=== PATIENT | female | born 1945 | race Caucasian/White ===

== ENCOUNTER → 2016-12-28 | Outpatient (CLI) | payer BC ==
[2016-12-28 11:25] LABS: ALT/SGPT 37 U/L (12-78); BLOOD UREA NITROGEN 20 mg/dl (7-18); BUN/CREATININE RATIO 20.6 (10-20); CALCIUM 9.6 mg/dl (8.5-10.1); CARBON DIOXIDE 28 mmol/L (21-32); CHLORIDE 99 mmol/L (98-107); CREATININE 0.98 mg/dl (0.60-1.20); GLUCOSE 319 mg/dl (70-99); POTASSIUM 3.9 mmol/L (3.5-5.1); SODIUM 137 mmol/L (136-145)
[2016-12-28 11:29] LABS: ALB/GLOB RATIO 0.8 (0.9-2); ALKALINE PHOSPHATASE 77 U/L (45-117); AST/SGOT 18 U/L (15-37)
[2016-12-28 11:36] LABS: BETA-HYDROXYBUTYRATE 4.98 mg/dL (0.2-2.81)
[2016-12-28 12:30] LABS: ESTIMATED AVERAGE GLUCOSE 232 mg/dl; HA1C FLAG Normal (Normal)
== END | disposition home or self-care (01) ==
LOC: C.LAB1850 09:08
PROVIDERS: ATTEND Family Medicine
DX: E11.29 Type 2 diabetes mellitus with other diabetic kidney complication (principal); E11.65 Type 2 diabetes mellitus with hyperglycemia; I10 Essential (primary) hypertension

== ENCOUNTER → 2017-03-08 | Outpatient (CLI) | payer BC ==
[2017-03-08 13:12] LABS: ESTIMATED AVERAGE GLUCOSE 174 mg/dl; HA1C FLAG Normal (Normal)
[2017-03-08 13:53] LABS: RATIO 161.7 mcg/mg (0-30.0)
== END | disposition home or self-care (01) ==
LOC: C.LAB1850 10:13
PROVIDERS: ATTEND Physician Assistant
DX: E11.9 Type 2 diabetes mellitus without complications (principal)

== ENCOUNTER → 2017-06-23 | Outpatient (CLI) | payer BC ==
[2017-06-23 10:59] LABS: ESTIMATED AVERAGE GLUCOSE 160 mg/dl; HA1C FLAG Normal (Normal)
[2017-06-23 11:06] LABS: BLOOD UREA NITROGEN 17 mg/dl (7-18); BUN/CREATININE RATIO 21.5 (10-20); CALCIUM 9.7 mg/dl (8.5-10.1); CARBON DIOXIDE 32 mmol/L (21-32); CHLORIDE 102 mmol/L (98-107); GLUCOSE 153 mg/dl (70-99); SODIUM 139 mmol/L (136-145)
[2017-06-23 11:11] LABS: CHOLESTEROL 195 mg/dl (0-200); CHOLESTEROL/HDL RATIO 2.7; HDL CHOLESTEROL 73 mg/dl; LDL CHOLESTEROL CALCULATED 98 mg/dl; TRIGLYCERIDES 122 mg/dl (0-150); VERY LOW DENSITY LIPOPROT CALC 24 mg/dl
== END | disposition home or self-care (01) ==
LOC: C.LAB1850 09:27
PROVIDERS: ATTEND Family Medicine
DX: I10 Essential (primary) hypertension (principal); E78.5 Hyperlipidemia, unspecified; Z11.59 Encounter for screening for other viral diseases; E11.29 Type 2 diabetes mellitus with other diabetic kidney complication; E11.65 Type 2 diabetes mellitus with hyperglycemia

== ENCOUNTER → 2017-12-27 | Outpatient (CLI) | payer BC ==
[2017-12-27 16:11] LABS: BLOOD UREA NITROGEN 21 mg/dl (7-18); CALCIUM 9.7 mg/dl (8.5-10.1); CARBON DIOXIDE 26 mmol/L (21-32); CREATININE 0.92 mg/dl (0.60-1.20); GLUCOSE 97 mg/dl (70-99); POTASSIUM 3.5 mmol/L (3.5-5.1); SODIUM 137 mmol/L (136-145)
[2017-12-28 06:25] LABS: HEMOGLOBIN A1C 7.9 % (4.5-5.6)
== END | disposition home or self-care (01) ==
LOC: C.LAB1850 14:50
PROVIDERS: ATTEND Physician Assistant
DX: E11.9 Type 2 diabetes mellitus without complications (principal)

== ENCOUNTER → 2018-04-28 | Outpatient (CLI) | payer BC ==
[2018-04-28 12:26] LABS: HEMOGLOBIN A1C 7.6 % (4.5-5.6)
== END | disposition home or self-care (01) ==
LOC: C.LAB1850 10:01
PROVIDERS: ATTEND Physician Assistant
DX: E11.9 Type 2 diabetes mellitus without complications (principal)

== ENCOUNTER 2019-09-21 14:12 | Inpatient (IN) ==
[2019-09-21] MEDS ORDERED: ALBUT/IPRATROP 3MG/0.5MG NEB 3 ML VIAL INH STA (14:31)
[2019-09-21] MEDS ORDERED: methylPREDNISolone 125 MG/2 ML VIAL IV STA (14:31)
[2019-09-21] MEDS ORDERED: cefTRIAXone SODIUM 1,000 MG/50 ML BAG IV STA (14:36)
[2019-09-21] MEDS ORDERED: AZITHROMYCIN 500 MG in DEXTROSE 5% 250 ML IV STA (14:36)
--- NOTE | 2019-09-21 14:40 | Emergency Department Note ---
Entered by Ava Perez acting as a scribe for History of Present Illness General Chief complaint: Referred by Doctor Stated complaint: pneumonia multi lobe Time Seen by Provider: 09/21/19 14:25 Source: patient History of Present Illness Onset (ago): day(s) 5 Location: chest Pain Consistency: + constant Maximum Pain Intensity: 5 Current Pain Intensity: 5 Relieved By: + none Exacerbated By: + other (cough) Associated symptoms: + chest pain, + cough (with green sputum), + fever/chills, + shortness of breath and + other The patient is a 73 year old female who presents to the Emergency Room with complaints of shortness of breath that started about 5 days ago after developing a fever. This fever continued for the next 2 days. She called her primary care doctor, who recommended going to the ER or [facility]. She decided to visit [facility] today, and received a chest X-ray. The doctor reported that she had bilateral pneumonia, and that her oxygen was low and in the 80s. She was put on oxygen, given a nebulizer treatment, and referred to the ER. They did not run a flu swab on the patient. Additionally, the patient complains of cough with green sputum. She notes pain in her diaphragm that is exacerbated with coughing, and states that she feels short of breath. She reports that she has a history of asthma, and is a current smoker. The patient does not usually wear oxygen, but uses inhalers as needed. Home Medications Home Medications Medication Instructions Recorded Confirmed Type ascorbic acid (vitamin C) 1,000 mg 1,000 mg PO BID tab 05/22/19 09/21/19 History tablet aspirin 325 mg tablet 325 mg PO QAM tab 05/22/19 09/21/19 History cholecalciferol (vitamin D3) 5,000 5,000 units PO QAM #30 cap 05/22/19 09/21/19 History unit capsule glipizide 10 mg tablet, extended 10 mg PO QAM #90 tab 05/22/19 09/21/19 History release 24 hr lancets 28 gauge #25 ea 05/22/19 05/31/19 History multivitamin 1 tab PO QAM 05/22/19 09/21/19 History metformin 1,000 mg tablet 1,000 mg PO BID 90 Days #180 tab 06/19/19 09/21/19 Rx blood sugar diagnostic #400 ea 07/18/19 Rx fluticasone 250 mcg-salmeterol 50 1 puffs INHALATION Q12H #180 ea 09/11/19 09/21/19 Rx mcg/dose blistr powdr for inhalation albuterol sulfate [Ventolin HFA] 2 inh INHALATION Q6H PRN 09/21/19 09/21/19 History furosemide 40 mg PO QAM 09/21/19 09/21/19 History insulin NPH isoph U-100 human 30 unit SUBCUT QPM 09/21/19 09/21/19 History [Humulin N NPH Insulin KwikPen] vitamin B complex 1 tab PO QAM 09/21/19 09/21/19 History vitamin E 1,000 unit PO QAM 09/21/19 09/21/19 History Allergies Allergy/AdvReac Type Severity Reaction Status Date / Time latex Allergy Intermediate Rash Verified 09/21/19 15:59 cinnamon AdvReac Intermediate Hematuria Verified 09/21/19 15:59 lisinopril AdvReac Intermediate Cough Verified 09/21/19 15:59 losartan AdvReac Intermediate Skin Verified 09/21/19 15:59 crawling sensation Past Med/Surg History Medical History Albuminuria Asthma Chronic venous insufficiency Diabetes mellitus type 2, uncontrolled Diabetic nephropathy DM (diabetes mellitus), type 2, uncontrolled, with renal complications Hyperlipidemia Hypertension Surgical History H/O: hysterectomy still has ovaries. 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 and A total of 10 systems reviewed and were otherwise negative Physical Exam Vital Signs Vital Signs - 24 hr 09/21/19 14:16 09/21/19 14:47 09/21/19 15:03 Temperature 37.1 C Temperature Source Oral Pulse Rate 108 H Pulse Rate [Right Radial] 100 H Pulse Rhythm Regular Pulse Strength Normal Respiratory Rate 18 20 Respiratory Effort / Characteristics Non-Labored Non-Labored Spontaneous Respiratory Depth Normal Respiratory Pattern Regular Blood Pressure 158/82 H Blood Pressure [Left Arm] Blood Pressure Mean 107 Blood Pressure Mean [Left Arm] Blood Pressure Position Sitting Pulse Oximetry 87 L 94 96 Oxygen Delivery Method Room Air Nasal Cannula Nasal Cannula Oxygen Flow Rate 2 2 Sepsis Recent Fever Within 48 Hours Yes Sepsis New/Unexplained Change in Mental Status No Sepsis Action Taken by Nursing No Action Required 09/21/19 15:59 Temperature Temperature Source Pulse Rate Pulse Rate [Right Radial] 100 H Pulse Rhythm Pulse Strength Respiratory Rate 18 Respiratory Effort / Characteristics Respiratory Depth Respiratory Pattern Blood Pressure Blood Pressure [Left Arm] 131/78 Blood Pressure Mean Blood Pressure Mean [Left Arm] 95 Blood Pressure Position Pulse Oximetry 92 Oxygen Delivery Method Room Air Oxygen Flow Rate 2 Sepsis Recent Fever Within 48 Hours Sepsis New/Unexplained Change in Mental Status Sepsis Action Taken by Nursing CONSTITUTIONAL/VITAL SIGNS: Reviewed / noted above. GENERAL: Non-toxic in appearance. INTEGUMENTARY: Warm, dry, and [place]. HEAD: Normocephalic. EYES: without scleral icterus or trauma. ENT/OROPHARYNX: clear and moist. LYMPHADENOPATHY/NECK: Is supple without lymphadenopathy or meningismus. RESPIRATORY: Scattered expiratory wheezing bilaterally CARDIOVASCULAR: Regular rate and rhythm. GI/ABDOMEN: Soft and nontender. No organomegaly or pulsatile mass. No rebound or guarding. Normal bowel sounds. EXTREMITIES: Warm and well perfused. BACK: No CVA tenderness. NEUROLOGICAL: Intact without focal deficits. PSYCHIATRIC: normal affect. MUSCULOSKELETAL: Normally developed with good muscle tone. Course Course 1427: Past medical records reviewed. The patient was evaluated in room B04B. A complete history and physical exam was performed. 1525: I spoke to Dr. Chew, [facility] hospitalist, who agreed to take over care of the patient. 1538: I updated the patient on her lab and imaging results which indicated Flu A. The patient verbally expressed understanding and agreement of the treatment plan. The patient will be evaluated for further treatment. Administered Medications Azithromycin 500 mg/ Dextrose 255 mls @ 127.5 mls/hr IV NOW STA Stop: 09/21/19 16:35 Last Admin: 09/21/19 15:40 Dose: 127.5 mls/hr Documented by: [id number] Discontinued Medications Albuterol (Duoneb) 3 ml INH NOW STA Stop: 09/21/19 14:32 Last Admin: 09/21/19 15:03 Dose: 3 ml Documented by: [id number] Ceftriaxone Sodium (Rocephin) 1,000 mg in 50 mls @ 100 mls/hr IV NOW STA Stop: 09/21/19 15:05 Last Admin: 09/21/19 15:01 Dose: 100 mls/hr Documented by: [id number] Methylprednisolone (Solumedrol) 125 mg IV NOW STA Stop: 09/21/19 14:32 Last Admin: 09/21/19 15:01 Dose: 125 mg Documented by: [id number] Oseltamivir Phosphate (Tamiflu) 75 mg PO NOW STA Stop: 09/21/19 15:37 Last Admin: 09/21/19 15:57 Dose: 75 mg Documented by: [id number] Medical Decision Making Differential Diagnosis The differential was considered includes acute myocardial infarction, acute coronary syndrome, myocarditis, pericarditis, pericardial effusions /tamponad, esophageal perforation, pulmonary embolism, pneumonia, pneumothorax, cardiomyopathy, congestive heart, anemia , COPD/asthma exacerbation. Medical Records Attestation: I reviewed the patient's medical records. Home Medications Current Medication List: was personally reviewed by me Laboratory Data Attestation: I reviewed the patient's lab results. Result diagrams: 09/21/19 14:58 09/21/19 14:58 Lab Results 09/21/19 09/21/19 09/21/19 Range/Units 14:37 14:58 14:58 WBC 10.85 H (4.8-10.8) K/uL RBC 4.63 (4.2-5.4) M/uL Hgb 14.3 (12.0-16.0) g/dL Hct 42.3 (37-47) % MCV 91.4 (80-100) fL MCH 30.9 (25-34) pg MCHC 33.8 (32-36) g/dL RDW Std Deviation 52.6 H (36.4-46.3) fL RDW Coeff of Dee 15.8 H (11.5-14.5) % Plt Count 248 (130-400) K/uL MPV 10.4 (7.4-10.4) fL Immature Gran % (Auto) 0.2 % Neut % (Auto) 88.8 % Lymph % (Auto) 5.7 % [place] % (Auto) 4.6 % Eos % (Auto) 0.5 % Baso % (Auto) 0.2 % Immature Gran # (Auto) 0.02 (0.00-0.02) K/uL Neut # (Auto) 9.64 H (1.4-6.5) K/uL Lymph # (Auto) 0.62 L (1.2-3.4) K/uL [place] # (Auto) 0.50 (0.11-0.59) K/uL Eos # (Auto) 0.05 (0-0.5) K/uL Baso # (Auto) 0.02 (0-0.2) K/uL PT 10.3 (9.0-12.0) Seconds INR 1.0 (0.9-1.1) APTT 28.7 (21.0-31.0) Seconds PTT Ratio 1.1 Sodium (136-145) mmol/L Potassium (3.5-5.1) mmol/L Chloride (98-107) mmol/L Carbon Dioxide (21-32) mmol/L Anion Gap (3-11) BUN (7-18) mg/dl Creatinine (0.6-1.2) mg/dl Est Cr Clr Drug Dosing ml/min Est GFR ( Amer) Est GFR (Non-Af Amer) BUN/Creatinine Ratio (10-20) Glucose (70-99) mg/dl Calcium (8.5-10.1) mg/dl Total Bilirubin (0.2-1) mg/dl AST (15-37) U/L ALT (12-78) U/L Alkaline Phosphatase (45-117) U/L Troponin I (0-0.045) ng/ml Total Protein (6.4-8.2) gm/dl Albumin (3.4-5.0) gm/dl Globulin (2.5-4.0) gm/dl Albumin/Globulin Ratio (0.9-2) Influenza Type A (PCR) Pos for Influ A A* (Neg) Influenza Type B (PCR) Neg for Influ B (Neg) 09/21/19 Range/Units 14:58 WBC (4.8-10.8) K/uL RBC (4.2-5.4) M/uL Hgb (12.0-16.0) g/dL Hct (37-47) % MCV (80-100) fL MCH (25-34) pg MCHC (32-36) g/dL RDW Std Deviation (36.4-46.3) fL RDW Coeff of Dee (11.5-14.5) % Plt Count (130-400) K/uL MPV (7.4-10.4) fL Immature Gran % (Auto) % Neut % (Auto) % Lymph % (Auto) % [place] % (Auto) % Eos % (Auto) % Baso % (Auto) % Immature Gran # (Auto) (0.00-0.02) K/uL Neut # (Auto) (1.4-6.5) K/uL Lymph # (Auto) (1.2-3.4) K/uL [place] # (Auto) (0.11-0.59) K/uL Eos # (Auto) (0-0.5) K/uL Baso # (Auto) (0-0.2) K/uL PT (9.0-12.0) Seconds INR (0.9-1.1) APTT (21.0-31.0) Seconds PTT Ratio Sodium 137 (136-145) mmol/L Potassium 3.9 (3.5-5.1) mmol/L Chloride 103 (98-107) mmol/L Carbon Dioxide 28 (21-32) mmol/L Anion Gap 6.0 (3-11) BUN 25 H (7-18) mg/dl Creatinine 1.08 (0.6-1.2) mg/dl Est Cr Clr Drug Dosing 47.7 ml/min Est GFR ( Amer) 59.0 Est GFR (Non-Af Amer) 50.9 BUN/Creatinine Ratio 23.1 H (10-20) Glucose 200 H (70-99) mg/dl Calcium 9.6 (8.5-10.1) mg/dl Total Bilirubin 0.4 (0.2-1) mg/dl AST 30 (15-37) U/L ALT 35 (12-78) U/L Alkaline Phosphatase 64 (45-117) U/L Troponin I < 0.015 (0-0.045) ng/ml Total Protein 7.9 (6.4-8.2) gm/dl Albumin 3.1 L (3.4-5.0) gm/dl Globulin 4.8 H (2.5-4.0) gm/dl Albumin/Globulin Ratio 0.6 L (0.9-2) Influenza Type A (PCR) (Neg) Influenza Type B (PCR) (Neg) Imaging Data Radiologist's Impression: Radiology results as stated below per my review and the radiologist's interpretation: XR chest 1V portable HISTORY: 73 years-old Female Dyspnea acute shortness of breath COMPARISON: Chest radiograph 01/22/2006 TECHNIQUE: Portable AP view of the chest FINDINGS: Cardiac silhouette is upper limits of normal in size. Calcified plaque of the thoracic arch. No pneumothorax or large pleural effusion. Mild blunting of the costophrenic angles. Diffuse bilateral reticular opacities with mild hyperinflation. Degenerative changes of the shoulders and spine. IMPRESSION: Bilateral reticular opacities may reflect pulmonary edema, atypical pneumonitis or chronic fibrotic changes and are new from 2005. ACT 112: Negative or not required by law. The above report was generated using voice recognition software. It may contain grammatical, syntax or spelling errors. Electronically signed by: José Briseno M.D. 09/21/2019 3:06 PM ECG Data Attestation: I personally reviewed and interpreted this ECG as follows: Indication: + SOB/dyspnea Rate (beats per minute): 108 Rhythm: + sinus tachycardia ECG [place]: + Normal ECG ST segments: no ST elevation ECG Findings: no PACs and no PVCs Blood Pressure Blood Pressure Findings: Elevated blood pressure Blood Pressure Disposition: further management by hospitalist DEDE Agarwal This is a 73-year-old female who presents to the ED with a chief complaint of fever for the past 5 days. She has also had a nonproductive cough for the past 4 days. Today her cough became productive for green sputum. She reports shortness of breath that is worse with exertion. She reports a history of asthma and history of smoking. She was seen at urgent care and was told she had a bilateral pneumonia. She was given a DuoNeb treatment there. The patient was sent here for further evaluation. The patient's physical exam reveals expiratory wheezing bilaterally. These are scattered. Her blood pressure is elevated. She is slightly tachycardic. She is afebrile. Her pulse ox on room air is 87%. She does not use oxygen at home. She does use inhalers at home. The patient CBC is unremarkable. Chest x-ray reveals bilateral pneumonia. Flu swab was positive for influenza A. Glucose was 200. She has IDDM. The patient was treated with IV Rocephin, IV Solu-Medrol, IV Zithromax, po tamiflu and a DuoNeb treatment. She will be seen by the hospitalist for further evaluation and care. Impression & Plan Pneumonia, Influenza A Discharge Plan Visit Data Chief Complaint: Referred by Doctor Stated Complaint: pneumonia multi lobe ED Provider: Esau De La Rosa Discharge Problem: Pneumonia, Influenza A Forms Stand Alone Forms: [facility] Prescriptions Prescriptions: No Action metformin 1,000 mg tablet 1,000 mg PO BID 90 Days Qty: 180 RF: 3 (DME) Prodigy No Coding strip See Dose Instructions .ROUTE .MEDSUPPLY Qty: 400 RF: 3 fluticasone propion-salmeterol [Advair Diskus] 250-50 mcg/dose blister with device 1 puffs inhalation Q12H Qty: 180 RF: 3 cholecalciferol (vitamin D3) 5,000 unit capsule 5,000 units PO QAM Qty: 30 RF: 0 aspirin 325 mg tablet 325 mg PO QAM RF: 0 ascorbic acid (vitamin C) 1,000 mg tablet 1,000 mg PO BID RF: 0 (DME) lancets [Prodigy Lancets] 28 gauge misc See Dose Instructions .ROUTE .MEDSUPPLY Qty: 25 RF: 0 multivitamin [Daily Multi-Vitamin] tablet 1 tab PO QAM RF: 0 glipizide 10 mg tablet extended release 24hr 10 mg PO QAM Qty: 90 RF: 0 vitamin E 1,000 unit Capsule 1,000 unit PO QAM RF: 0 vitamin B complex Tablet 1 tab PO QAM RF: 0 albuterol sulfate [Ventolin HFA] 90 mcg/actuation HFA aerosol inhaler 2 inh inhalation Q6H PRN (Reason: Shortness Of Breath Or Wheezing) RF: 0 Humulin N NPH Insulin KwikPen 100 unit/mL (3 mL) insulin pen 30 unit SUBCUT QPM RF: 0 furosemide 40 mg tablet 40 mg PO QAM RF: 0 Discharge Problem: Pneumonia Qualifiers: Pneumonia type: due to unspecified organism Laterality: bilateral Lung location: unspecified part of lung Qualified Code(s): J18.9 - Pneumonia, unspecified organism The scribe's documentation has been prepared under my direction and personally reviewed by me in its entirety. I confirm that the note above accurately reflects all work, treatment, procedures, and medical decision making performed by me.
[2019-09-21 15:07] LABS: Basophils # (auto) 0.02 K/uL (0-0.2); Basophils % (auto) 0.2 %; Eosinophils # (auto) 0.05 K/uL (0-0.5); Eosinophils % (auto) 0.5 %; Hematocrit (blood only) 42.3 % (37-47); Hemoglobin 14.3 g/dL (12.0-16.0); Immature Granulocytes # (auto) 0.02 K/uL (0.00-0.02); Immature Granulocytes % (auto) 0.2 %; Lymphocytes # (auto) 0.62 K/uL (1.2-3.4); Lymphocytes % (auto) 5.7 %; Mean Corpuscular Hemoglobin 30.9 pg (25-34); Mean Corpuscular Hgb Conc 33.8 g/dL (32-36); Mean Corpuscular Volume 91.4 fL (80-100); Mean Platelet Volume 10.4 fL (7.4-10.4); Monocytes % (auto) 4.6 %; Neutrophils # (auto) 9.64 K/uL (1.4-6.5); Neutrophils % (auto) 88.8 %; Platelet Count 248 K/uL (130-400); RDW Coefficient of Variation 15.8 % (11.5-14.5); RDW Standard Deviation 52.6 fL (36.4-46.3); Red Blood Count 4.63 M/uL (4.2-5.4); White Blood Count 10.85 K/uL (4.8-10.8)
--- NOTE | 2019-09-21 15:07 | XRay Report ---
XR chest 1V portable HISTORY: 73 years-old Female Dyspnea acute shortness of breath COMPARISON: Chest radiograph 01/22/2006 TECHNIQUE: Portable AP view of the chest FINDINGS: Cardiac silhouette is upper limits of normal in size. Calcified plaque of the thoracic arch. No pneum othorax or large pleural effusion. Mild blunting of the costophrenic angles. Diffuse bilateral reticu lar opacities with mild hyperinflation. Degenerative changes of the shoulders and spine. IMPRESSION: Bilateral reticular opacities may reflect pulmonary edema, atypical pneumonitis or chroni c fibrotic changes and are new from 2005. ACT 112: Negative or not required by law. The above report was generated using voice recognition software. It may contain grammatical, syntax o r spelling errors. Electronically signed by: José Briseno M.D. 09/21/2019 3:06 PM
[2019-09-21 15:21] LABS: Partial Thromboplastin Ratio 1.1; Partial Thromboplastin Time 28.7 Seconds (21.0-31.0); Prothrombin Time 10.3 Seconds (9.0-12.0)
[2019-09-21 15:22] LABS: Influenza B virus by PCR Neg for Influ B (Neg)
[2019-09-21 15:33] LABS: Alanine Aminotransferase 35 U/L (12-78); Albumin Level 3.1 gm/dl (3.4-5.0); Aspartate Aminotransferase 30 U/L (15-37); BUN Creatinine Ratio 23.1 (10-20); Blood Urea Nitrogen 25 mg/dl (7-18); Calcium 9.6 mg/dl (8.5-10.1); Carbon Dioxide 28 mmol/L (21-32); Chloride 103 mmol/L (98-107); Creatinine Clr Calc Pharmacy 47.7 ml/min; Est GFR (Non-African American) 50.9; Glucose 200 mg/dl (70-99); Potassium 3.9 mmol/L (3.5-5.1); Sodium 137 mmol/L (136-145)
[2019-09-21] MEDS ORDERED: OSELTAMIVIR PHOSPHATE 75 MG CAP PO STA (15:36)
[2019-09-21 15:37] LABS: Albumin Globulin Ratio 0.6 (0.9-2); Alkaline Phosphatase 64 U/L (45-117); Bilirubin,Total 0.4 mg/dl (0.2-1); Globulin 4.8 gm/dl (2.5-4.0); Total Protein 7.9 gm/dl (6.4-8.2); Troponin I < 0.015 ng/ml (0-0.045)
--- NOTE | 2019-09-21 17:05 | History & Physical Report ---
Date of Service September 21, 2019 Assessment & Plan (1) Pneumonia: Admit to [facility] Vital signs every 4 hours Duo nebs every 4 hours Started ceftriaxone and azithromycin in the ER Continue home inhalers for asthma/COPD-albuterol sulfate every 6 hours as needed and fluticasone/salmeterol 1 puff every 12 hours. Robitussin every 6 hours as needed cough for cough. Gentle IV fluid hydration with normal saline at 80 cc/h. Replenish electrolytes PRN Follow-up blood cultures DVT prophylaxis Lovenox 40 mg subcu daily Full code Present on Admission?: Yes (2) Influenza A: Started Tamiflu 75 mg p.o. twice daily for influenza A. Continue duo nebs and cough syrups as the above. Sputum culture pending. Present on Admission?: Yes (3) Albuminuria: Most likely related to diabetes mellitus type 2 which is not well controlled. Last hemoglobin A1c was 8.2 in March 2019. Will repeat A1c. Glycemic control per pharmacy. Would use sliding scale insulin while patient is in the hospital to avoid side effects of oral medication, and hypoglycemia. Present on Admission?: Yes (4) Chronic venous insufficiency: At this point is stable. No issues. Continue observing. Present on Admission?: Yes (5) Asthma: Patient states that she has asthma. It appears to be COPD due to her smoking habits. Patient smokes for 40+ years. At this point patient smokes half pack per day. She stated that she did not smoke in the past 4 days. Patient was advised to stop smoking. She is stated that she does not need nicotine patch. Continue home inhalers as discussed above above and duo nebs every 4 hours. Present on Admission?: Yes (6) DM (diabetes mellitus), type 2, uncontrolled, with renal complications: Patient is at home on metformin thousand milligrams p.o. twice daily and glipizide 10 mg p.o. every morning . She also takes NPH Humulin and 30 units subcu at every afternoon. Sliding scale insulin recommended while patient in the hospital. A1c pending. Accu-Cheks before meals and at bedtime. Glycemic control per pharmacy Present on Admission?: Yes (7) Hyperlipidemia: Will check lipid panel. Patient is not statins. Present on Admission?: Yes (8) Hypertension: Stable. Continue home medicine: Aspirin 325 mg p.o. every morning, furosemide 40 mg p.o. every morning, multivitamin 1 tablet p.o. every morning, vitamin B complex 1 tablet p.o. every morning, vitamin E 1000 mg p.o. every morning Present on Admission?: Yes History of Present Illness Chief Complaint: Cough, malaise and fever Primary Care Provider: Jayne Mayo DO Patient is a 73 years old female with past medical history of diabetes mellitus type 2, hyperlipidemia, hypertension chronic venous insufficiency who presented to the emergency room with a complaint of fever for 4 days, cough malaise and feeling sick. Patient reports having a body aches but she did not come to the emergency room earlier because of her being sick. Patient said on occasion she had fever of 103F at home. Patient reports productive sputum. Patient denies headache, chest pain, abdominal pain, melena, frequency, urgency. Labs are reviewed: WBC is 10.85, hemoglobin 14.3, hematocrit 42.3 platelets 248. PT 10.3, INR 1, APTT 28.7. Sodium 137, potassium 3.9, chloride 103, anion gap 6, BUN 25, creatinine 1.08, GFR 50.9, globin A1c from March 2019 8.2, AST 30, ALT 35, troponin 0.015, TSH pending, BNP pending. Chest x-rays bilateral reticular opacity may reflect pulmonary edema. Atypical pneumonitis or chronic fibrotic changes that are new from 2005. Decision was made to admit to [facility] patient to rule out possible pneumonia and to treat influenza A. Allergies Allergy/AdvReac Type Severity Reaction Status Date / Time latex Allergy Intermediate Rash Verified 09/21/19 15:59 cinnamon AdvReac Intermediate Hematuria Verified 09/21/19 15:59 lisinopril AdvReac Intermediate Cough Verified 09/21/19 15:59 losartan AdvReac Intermediate Skin Verified 09/21/19 15:59 crawling sensation Home Medications Home Medications Medication Instructions Recorded Confirmed Type ascorbic acid (vitamin C) 1,000 mg 1,000 mg PO BID tab 05/22/19 09/21/19 History tablet aspirin 325 mg tablet 325 mg PO QAM tab 05/22/19 09/21/19 History cholecalciferol (vitamin D3) 5,000 5,000 units PO QAM #30 cap 05/22/19 09/21/19 History unit capsule glipizide 10 mg tablet, extended 10 mg PO QAM #90 tab 05/22/19 09/21/19 History release 24 hr lancets 28 gauge #25 ea 05/22/19 05/31/19 History multivitamin 1 tab PO QAM 05/22/19 09/21/19 History metformin 1,000 mg tablet 1,000 mg PO BID 90 Days #180 tab 06/19/19 09/21/19 Rx blood sugar diagnostic #400 ea 07/18/19 Rx fluticasone 250 mcg-salmeterol 50 1 puffs INHALATION Q12H #180 ea 09/11/19 09/21/19 Rx mcg/dose blistr powdr for inhalation albuterol sulfate [Ventolin HFA] 2 inh INHALATION Q6H PRN 09/21/19 09/21/19 History furosemide 40 mg PO QAM 09/21/19 09/21/19 History insulin NPH isoph U-100 human 30 unit SUBCUT QPM 09/21/19 09/21/19 History [Humulin N NPH Insulin KwikPen] vitamin B complex 1 tab PO QAM 09/21/19 09/21/19 History vitamin E 1,000 unit PO QAM 09/21/19 09/21/19 History Past Med/Surg History Medical History Albuminuria Asthma Chronic venous insufficiency Diabetes mellitus type 2, uncontrolled Diabetic nephropathy DM (diabetes mellitus), type 2, uncontrolled, with renal complications Hyperlipidemia Hypertension Surgical History H/O: hysterectomy still has ovaries. 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 Other Information That Helps Us Care for You: No Feels Safe at Home: Yes Safety Concerns: Feels Safe At This Time Smoking Status: Current every day smoker Tobacco Type: cigars ; Age Started Using Tobacco: 9 ; packs per day: 0.5 ; Cigarettes Per Day: 1/2 PACK ; Second Hand Exposure: Yes ; Hx Alcohol Use: No Hx Substance Use: No Childhood Exposure to Second-Hand Smoke: Yes Dental Care, Regularly: Yes Physical Activity Frequency: Does not Exercise Seatbelt Use: always Review of Systems Review of Systems: All systems reviewed & are unremarkable except as noted in HPI & below Physical Exam Constitutional: WD/WN, vitals as above well developed and + morbidly obese Eyes: PERRL, conjunctivae normal, anicteric sclerae ENMT: external ear and nose normal, oropharynx normal Neck: trachea midline, no thyromegaly Respiratory: normal respiratory effort Auscultation: + crackles, + wheezes, + bronchovesicular breath sounds and + egophony Cardiovascular: Rate/Rhythm: regular rate and regular rhythm Heart Sounds: normal S1, normal S2 and + murmur Palpation: + palpable S3 Vessels: dorsalis pedis pulses present Gastrointestinal (Abdomen): normal bowel sounds, soft, nontender, no hepatosplenomegaly Musculoskeletal: no cyanosis or clubbing, extremities motor strength 5/5 Skin: no rashes, warm and dry Neurologic: patellar DTR's 2+ bilat, sensation intact Psychiatric: A+Ox3, euthymic affect Lymphatic: no cervical or axillary lymphadenopathy Results & Data Vital Signs (Past 12 Hours) Vital Signs Temp Pulse Pulse Resp BP BP Pulse Ox 09/21/19 15:59 100 H 18 131/78 92 09/21/19 15:03 100 H 20 96 09/21/19 14:47 94 09/21/19 14:16 37.1 C 108 H 18 158/82 H 87 L Code Status & VTE Plan Code Status Full code VTE Prophylaxis Plan VTE Prophylaxis will be ordered: Yes PG Care Time/CCT Total # of Minutes Spent Total Time Spent with Patient: Total time spent is greater than 50% in coordination of care (as documented) at patient's floor/unit and/or counseling patient: (1) Pneumonia Laterality: bilateral Lung location: unspecified part of lung Pneumonia type: due to unspecified organism Qualified Code(s): J18.9 - Pneumonia, unspecified organism
[2019-09-21] MEDS ORDERED: ONDANSETRON INJ 2 MG/ML 2 ML VIAL IV PRN (17:36)
[2019-09-21] MEDS ORDERED: ALBUTEROL HFA 8 GM INHALER INH PRN (17:36)
[2019-09-21] MEDS ORDERED: ACETAMINOPHEN 325 MG TAB PO PRN (17:36)
[2019-09-21] MEDS ORDERED: ZOLPIDEM TARTRATE 5 MG TAB PO PRN (17:36)
[2019-09-21] MEDS ORDERED: GUAIFENESIN/CODEINE 200MG/20MG 10ML UDC PO PRN (17:36)
[2019-09-21] MEDS ORDERED: MAGNESIUM HYDROXIDE SUSP 30 ML UDC PO PRN (17:36)
[2019-09-21] MEDS ORDERED: ALUMINUM/MAGNESIUM SUSP 30 ML UDC PO PRN (17:36)
[2019-09-21] MEDS ORDERED: SODIUM CHLORIDE 0.9% 1000ML 1,000 ML IV SCH (17:36)
[2019-09-21] MEDS ORDERED: POLYETHYLENE (MIRALAX) 17 GM PACK PO PRN (17:36)
[2019-09-21] MEDS ORDERED: cefTRIAXone SODIUM 1,000 MG in DEXTROSE 5% 50 ML IV ONE (18:15)
[2019-09-21] MEDS: ALBUT/IPRATROP 3MG/0.5MG NEB 3 ML VIAL NEB SCH ×2 (19:16→22:44)
[2019-09-21] MEDS: ENOXAPARIN INJ 40 MG/0.4 ML SYR SQ SCH (20:47)
[2019-09-21] MEDS: FLUTICASONE/SALMETEROL 250/50 (ADVAIR) 14 PUFF/1 INHALER INH SCH (20:49)
[2019-09-21] MEDS: ASCORBIC ACID 500 MG TAB PO SCH (20:51)
[2019-09-21] MEDS ORDERED: GLUCOSE 10 TABS/TUBE PO PRN (21:00)
[2019-09-21] MEDS ORDERED: GLUCOSE 40% GEL 15 GM TUBE PO PRN (21:00)
[2019-09-21] MEDS ORDERED: DEXTROSE 50% 50 ML SYRINGE IV PRN (21:00)
[2019-09-21] MEDS ORDERED: CARBOHYDRATES FOR HYPOGLYCEMIA PO PRN (21:00)
[2019-09-21] MEDS ORDERED: GLUCAGON FOR INJ 1 MG VIAL SQ PRN (21:00)
[2019-09-21] MEDS: INSULIN GLARGINE SOLOSTAR 100 UNITS/ML 3 ML PEN SC SCH (21:51)
[2019-09-21] MEDS: INSULIN ASPART 100 UNITS/ML 3 ML PEN SC SCH (21:52)
[2019-09-22] MEDS: ALBUT/IPRATROP 3MG/0.5MG NEB 3 ML VIAL NEB SCH ×6 (03:09→23:22)
[2019-09-22] MEDS: ASCORBIC ACID 500 MG TAB PO SCH ×2 (08:40→21:19)
[2019-09-22] MEDS: TOCOPHERYL, DL-ALPHA 400 UNITS CAP PO SCH (08:40)
[2019-09-22] MEDS: VITAMIN B COMPLEX TAB PO SCH (08:41)
[2019-09-22] MEDS: FLUTICASONE/SALMETEROL 250/50 (ADVAIR) 14 PUFF/1 INHALER INH SCH ×2 (08:41→21:16)
[2019-09-22] MEDS: CHOLECALCIFEROL 1,000 UNITS TAB PO SCH (08:41)
[2019-09-22] MEDS: FUROSEMIDE 40 MG TAB PO SCH (08:41)
[2019-09-22] MEDS: ASPIRIN 325 MG ECTAB PO SCH (08:41)
[2019-09-22] MEDS: MULTIVITAMIN TAB PO SCH (08:42)
[2019-09-22] MEDS: AZITHROMYCIN 250 MG TAB PO SCH (08:42)
[2019-09-22] MEDS: INSULIN ASPART 100 UNITS/ML 3 ML PEN SC SCH ×4 (09:02→21:18)
[2019-09-22] MEDS: INSULIN GLARGINE SOLOSTAR 100 UNITS/ML 3 ML PEN SC SCH ×2 (09:03→21:16)
[2019-09-22] MEDS: OSELTAMIVIR PHOSPHATE SUSP 30 MG/5 ML UDP PO SCH ×2 (09:07→21:28)
--- NOTE | 2019-09-22 13:33 | Hospitalist Progress Note ---
Date of Service September 22, 2019 Assessment & Plan (1) Influenza A: Day #2/5 of tamiflu. Pt developed fever on Wednesday of this past weekend. Thus, she is probably at the end of the natural course of the illness. She is feeling better overall. Cont supportive care. (2) Pneumonia: community-acquired pneumonia vs interstitial lung process vs other. cont rocephin/zithromax. follow cultures. supportive care. (3) COPD (chronic obstructive pulmonary disease): patient with longstanding smoking history and clubbing of nails. most-likely has underlying COPD. no flare at this time. cont inhalers/nebs. incentive barbara. (4) Diabetes mellitus type 2, uncontrolled: adjust lantus and novolog for optimal control (5) Hyperlipidemia: not on Rx at this time (6) Hypertension: takes lasix only BPs controlled (7) Tobacco abuse: encouraged to quit nicoderm if desired (8) DVT prophylaxis: lovenox wean NC O2 encouraged to get tamiflu prophylaxis (did not receive flu shot) supportive care Subjective patient feeling much better today. fevers/chills/myalgias are improved. cough improved. breathing more easily. still requiring NC O2 however. at bedside during my rounds. appetite improved. pt never had her flu shot this year. was smoking up until this admission - wants to quit. Review of Systems Constitutional: no fever, no chills, no body aches, no fatigue and no anorexia Respiratory: + cough; no dyspnea Cardiovascular: no chest pain Gastrointestinal: no abdominal pain, no nausea and no vomiting Physical Exam Constitutional: no acute distress and no altered mental status ENMT: external ear and nose normal, oropharynx normal Respiratory: Auscultation: + crackles (b/l upper lobes anteriorly) and + wheezes (scattered; b/l; anteriorly & posteriorly) Cardiovascular: Rate/Rhythm: regular rate and regular rhythm Heart Sounds: normal S1 and normal S2; no murmur Vessels: posterior tibial pulses present and dorsalis pedis pulses present; no JVD Gastrointestinal (Abdomen): normal bowel sounds, soft, nontender, no hepatosplenomegaly Skin: fingernail clubbing Psychiatric: A+Ox3, euthymic affect Results & Data Vital Signs (Past 12 Hours) Vital Signs Temp Pulse Resp BP Pulse Ox 09/22/19 11:00 83 18 98 09/22/19 07:33 36.6 C 94 H 18 123/74 97 09/22/19 07:14 83 18 94 09/22/19 03:09 83 18 95 Laboratory Results Laboratory Results - last 24 hr 09/21/19 09/21/19 09/21/19 14:37 14:58 14:58 WBC 10.85 H RBC 4.63 Hgb 14.3 Hct 42.3 MCV 91.4 MCH 30.9 MCHC 33.8 RDW Std Deviation 52.6 H RDW Coeff of Dee 15.8 H Plt Count 248 MPV 10.4 Immature Gran % (Auto) 0.2 Neut % (Auto) 88.8 Lymph % (Auto) 5.7 [place] % (Auto) 4.6 Eos % (Auto) 0.5 Baso % (Auto) 0.2 Immature Gran # (Auto) 0.02 Neut # (Auto) 9.64 H Lymph # (Auto) 0.62 L [place] # (Auto) 0.50 Eos # (Auto) 0.05 Baso # (Auto) 0.02 PT 10.3 INR 1.0 APTT 28.7 PTT Ratio 1.1 Sodium Potassium Chloride Carbon Dioxide Anion Gap BUN Creatinine Est Cr Clr Drug Dosing Est GFR ( Amer) Est GFR (Non-Af Amer) BUN/Creatinine Ratio Glucose POC Glucose Calcium Total Bilirubin AST ALT Alkaline Phosphatase Troponin I Total Protein Albumin Globulin Albumin/Globulin Ratio Influenza Type A (PCR) Pos for Influ A A* Influenza Type B (PCR) Neg for Influ B 09/21/19 09/21/19 09/21/19 14:58 20:52 20:53 WBC RBC Hgb Hct MCV MCH MCHC RDW Std Deviation RDW Coeff of Dee Plt Count MPV Immature Gran % (Auto) Neut % (Auto) Lymph % (Auto) [place] % (Auto) Eos % (Auto) Baso % (Auto) Immature Gran # (Auto) Neut # (Auto) Lymph # (Auto) [place] # (Auto) Eos # (Auto) Baso # (Auto) PT INR APTT PTT Ratio Sodium 137 Potassium 3.9 Chloride 103 Carbon Dioxide 28 Anion Gap 6.0 BUN 25 H Creatinine 1.08 Est Cr Clr Drug Dosing 47.7 Est GFR ( Amer) 59.0 Est GFR (Non-Af Amer) 50.9 BUN/Creatinine Ratio 23.1 H Glucose 200 H POC Glucose 444 H* 385 H* Calcium 9.6 Total Bilirubin 0.4 AST 30 ALT 35 Alkaline Phosphatase 64 Troponin I < 0.015 Total Protein 7.9 Albumin 3.1 L Globulin 4.8 H Albumin/Globulin Ratio 0.6 L Influenza Type A (PCR) Influenza Type B (PCR) 09/22/19 09/22/19 09/22/19 00:06 00:12 04:01 WBC RBC Hgb Hct MCV MCH MCHC RDW Std Deviation RDW Coeff of Dee Plt Count MPV Immature Gran % (Auto) Neut % (Auto) Lymph % (Auto) [place] % (Auto) Eos % (Auto) Baso % (Auto) Immature Gran # (Auto) Neut # (Auto) Lymph # (Auto) [place] # (Auto) Eos # (Auto) Baso # (Auto) PT INR APTT PTT Ratio Sodium Potassium Chloride Carbon Dioxide Anion Gap BUN Creatinine Est Cr Clr Drug Dosing Est GFR ( Amer) Est GFR (Non-Af Amer) BUN/Creatinine Ratio Glucose POC Glucose 317 H* 315 H* 277 H Calcium Total Bilirubin AST ALT Alkaline Phosphatase Troponin I Total Protein Albumin Globulin Albumin/Globulin Ratio Influenza Type A (PCR) Influenza Type B (PCR) 09/22/19 09/22/19 09/22/19 04:03 08:02 12:03 WBC RBC Hgb Hct MCV MCH MCHC RDW Std Deviation RDW Coeff of Dee Plt Count MPV Immature Gran % (Auto) Neut % (Auto) Lymph % (Auto) [place] % (Auto) Eos % (Auto) Baso % (Auto) Immature Gran # (Auto) Neut # (Auto) Lymph # (Auto) [place] # (Auto) Eos # (Auto) Baso # (Auto) PT INR APTT PTT Ratio Sodium Potassium Chloride Carbon Dioxide Anion Gap BUN Creatinine Est Cr Clr Drug Dosing Est GFR ( Amer) Est GFR (Non-Af Amer) BUN/Creatinine Ratio Glucose POC Glucose 292 H 239 H 165 H Calcium Total Bilirubin AST ALT Alkaline Phosphatase Troponin I Total Protein Albumin Globulin Albumin/Globulin Ratio Influenza Type A (PCR) Influenza Type B (PCR) PG Care Time/CCT Total # of Minutes Spent Total Time Spent with Patient: Total time spent is greater than 50% in coordination of care (as documented) at patient's floor/unit and/or counseling patient: (1) Pneumonia Laterality: bilateral Lung location: unspecified part of lung Pneumonia type: due to unspecified organism Qualified Code(s): J18.9 - Pneumonia, unspecified organism (2) COPD (chronic obstructive pulmonary disease) COPD type: unspecified COPD Qualified Code(s): J44.9 - Chronic obstructive pulmonary disease, unspecified (3) Diabetes mellitus type 2, uncontrolled Glycemic state: with hyperglycemia Qualified Code(s): E11.65 - Type 2 diabetes mellitus with hyperglycemia (4) Hyperlipidemia Hyperlipidemia type: mixed hyperlipidemia Qualified Code(s): E78.2 - Mixed hyperlipidemia (5) Hypertension Hypertension type: essential hypertension Qualified Code(s): I10 - Essential (primary) hypertension
[2019-09-22] MEDS ORDERED: cefTRIAXone SODIUM 2,000 MG/70 ML BAG IV SCH (18:00)
[2019-09-22 21:13] LABS: Creatinine Clr Calc Pharmacy 39.3 ml/min; Est GFR (African American) 46.7; Est GFR (Non-African American) 40.3
[2019-09-22] MEDS: ENOXAPARIN INJ 40 MG/0.4 ML SYR SQ SCH (21:15)
[2019-09-23] MEDS: ALBUT/IPRATROP 3MG/0.5MG NEB 3 ML VIAL NEB SCH ×6 (03:21→23:01)
[2019-09-23 06:39] LABS: Est GFR (African American) 53.5; Est GFR (Non-African American) 46.2
[2019-09-23] MEDS: INSULIN ASPART 100 UNITS/ML 3 ML PEN SC SCH ×4 (09:07→20:40)
[2019-09-23] MEDS: FLUTICASONE/SALMETEROL 250/50 (ADVAIR) 14 PUFF/1 INHALER INH SCH ×2 (09:08→20:36)
[2019-09-23] MEDS: ASPIRIN 325 MG ECTAB PO SCH (09:09)
[2019-09-23] MEDS: INSULIN GLARGINE SOLOSTAR 100 UNITS/ML 3 ML PEN SC SCH ×2 (09:09→20:36)
[2019-09-23] MEDS: FUROSEMIDE 40 MG TAB PO SCH (09:10)
[2019-09-23] MEDS: MULTIVITAMIN TAB PO SCH (09:11)
[2019-09-23] MEDS: ASCORBIC ACID 500 MG TAB PO SCH ×2 (09:12→20:39)
[2019-09-23] MEDS: VITAMIN B COMPLEX TAB PO SCH (09:12)
[2019-09-23] MEDS: CHOLECALCIFEROL 1,000 UNITS TAB PO SCH (09:13)
[2019-09-23] MEDS: TOCOPHERYL, DL-ALPHA 400 UNITS CAP PO SCH (09:14)
[2019-09-23] MEDS: AZITHROMYCIN 250 MG TAB PO SCH (09:15)
[2019-09-23] MEDS: OSELTAMIVIR PHOSPHATE SUSP 30 MG/5 ML UDP PO SCH ×2 (09:19→20:44)
[2019-09-23] MEDS ORDERED: levoFLOXacin 750 MG TAB PO SCH (16:00)
[2019-09-23] MEDS: methylPREDNISolone 30 MG in SYRINGE 0 ML IV SCH (16:41)
[2019-09-23] MEDS: guaiFENesin 600 MG TABCR PO SCH ×2 (16:41→20:37)
--- NOTE | 2019-09-23 20:02 | Hospitalist Progress Note ---
Date of Service September 23, 2019 Assessment & Plan (1) Influenza A: Day #3/5 of tamiflu. Pt developed fever on Wednesday of this past weekend. That was day #1 of illness. Thus, her flu is likely resolved. Cont supportive care. (2) Pneumonia: community-acquired pneumonia vs interstitial lung process vs other. stop rocephin/zithromax. change to PO levaquin; complete 7 days in total of abx. blood cx's negative. supportive care. (3) COPD (chronic obstructive pulmonary disease): patient with longstanding smoking history and clubbing of nails. most-likely has underlying COPD. more wheezing today thus will Rx for COPD exacerbation. start solumedrol 30mg IV q12h. cont nebs. add mucinex. cont flutter valve and incentive barbara. (4) Diabetes mellitus type 2, uncontrolled: improved with adjustment in lantus and novolog may need more adjustments in light of adding steroids follow carefully (5) Hyperlipidemia: not on Rx at this time (6) Hypertension: takes lasix only BPs controlled (7) Tobacco abuse: encouraged to quit (8) DVT prophylaxis: lovenox hopefully d/c home tomorrow ambulate in hallway Subjective patient feeling better overall. o2 weaned off. coughing with mild sputum. no fevers or shakes/chills. appetite very good. ambulating in room. Review of Systems Constitutional: no fever, no chills, no fatigue and no anorexia Respiratory: no hemoptysis Cardiovascular: no chest pain Gastrointestinal: no abdominal pain, no nausea and no vomiting Physical Exam Constitutional: no acute distress and no altered mental status ENMT: external ear and nose normal, oropharynx normal Respiratory: Auscultation: + crackles (b/l upper lobes anteriorly) and + wheezes (b/l - more prominent today; airation improved however) Cardiovascular: Rate/Rhythm: regular rate and regular rhythm Heart Sounds: normal S1 and normal S2; no murmur Vessels: posterior tibial pulses present and dorsalis pedis pulses present; no JVD Gastrointestinal (Abdomen): normal bowel sounds, soft, nontender, no hepatosplenomegaly Psychiatric: A+Ox3, euthymic affect Results & Data Vital Signs (Past 12 Hours) Vital Signs Temp Pulse Resp BP Pulse Ox 09/23/19 15:55 36.6 C 97 H 18 149/69 H 91 09/23/19 14:00 94 H 18 91 09/23/19 11:39 78 18 93 Laboratory Results Laboratory Results - last 24 hr 09/22/19 09/22/19 09/23/19 20:46 20:52 05:40 Creatinine 1.31 H 1.17 Est Cr Clr Drug Dosing 39.3 44.0 Est GFR ( Amer) 46.7 53.5 Est GFR (Non-Af Amer) 40.3 46.2 POC Glucose 168 H 09/23/19 09/23/19 09/23/19 08:00 12:14 16:39 Creatinine Est Cr Clr Drug Dosing Est GFR ( Amer) Est GFR (Non-Af Amer) POC Glucose 153 H 198 H 105 H 09/23/19 19:56 Creatinine Est Cr Clr Drug Dosing Est GFR ( Amer) Est GFR (Non-Af Amer) POC Glucose 123 H PG Care Time/CCT Total # of Minutes Spent Total Time Spent with Patient: Total time spent is greater than 50% in coordination of care (as documented) at patient's floor/unit and/or counseling patient: (1) Pneumonia Laterality: bilateral Lung location: unspecified part of lung Pneumonia type: due to unspecified organism Qualified Code(s): J18.9 - Pneumonia, unspecified organism (2) COPD (chronic obstructive pulmonary disease) COPD type: unspecified COPD Qualified Code(s): J44.9 - Chronic obstructive pulmonary disease, unspecified (3) Diabetes mellitus type 2, uncontrolled Glycemic state: with hyperglycemia Qualified Code(s): E11.65 - Type 2 diabetes mellitus with hyperglycemia (4) Hyperlipidemia Hyperlipidemia type: mixed hyperlipidemia Qualified Code(s): E78.2 - Mixed hyperlipidemia (5) Hypertension Hypertension type: essential hypertension Qualified Code(s): I10 - Essential (primary) hypertension
[2019-09-23] MEDS: ENOXAPARIN INJ 40 MG/0.4 ML SYR SQ SCH (20:36)
[2019-09-24] MEDS: ALBUT/IPRATROP 3MG/0.5MG NEB 3 ML VIAL NEB SCH ×4 (03:24→15:03)
[2019-09-24] MEDS: methylPREDNISolone 30 MG in SYRINGE 0 ML IV SCH (03:39)
[2019-09-24 06:34] LABS: Calcium 8.7 mg/dl (8.5-10.1); Creatinine Clr Calc Pharmacy 57.2 ml/min; Est GFR (African American) 73.5; Est GFR (Non-African American) 63.4; Potassium 4.3 mmol/L (3.5-5.1)
[2019-09-24 07:38] VITALS: TEMP 97.7
[2019-09-24] MEDS: OSELTAMIVIR PHOSPHATE SUSP 30 MG/5 ML UDP PO SCH (08:02)
[2019-09-24] MEDS: ASCORBIC ACID 500 MG TAB PO SCH (08:02)
[2019-09-24] MEDS: FLUTICASONE/SALMETEROL 250/50 (ADVAIR) 14 PUFF/1 INHALER INH SCH (08:02)
[2019-09-24] MEDS: TOCOPHERYL, DL-ALPHA 400 UNITS CAP PO SCH (08:02)
[2019-09-24] MEDS: guaiFENesin 600 MG TABCR PO SCH (08:03)
[2019-09-24] MEDS: MULTIVITAMIN TAB PO SCH (08:03)
[2019-09-24] MEDS: ASPIRIN 325 MG ECTAB PO SCH (08:03)
[2019-09-24] MEDS: CHOLECALCIFEROL 1,000 UNITS TAB PO SCH (08:03)
[2019-09-24] MEDS: VITAMIN B COMPLEX TAB PO SCH (08:03)
[2019-09-24] MEDS: FUROSEMIDE 40 MG TAB PO SCH (08:03)
[2019-09-24] MEDS: INSULIN GLARGINE SOLOSTAR 100 UNITS/ML 3 ML PEN SC SCH (08:35)
[2019-09-24] MEDS: INSULIN ASPART 100 UNITS/ML 3 ML PEN SC SCH ×2 (08:36→12:26)
--- NOTE | 2019-09-24 09:26 | XRay Report ---
XR chest 2V PA/lateral CLINICAL HISTORY: b/l infiltrates; interval change COMPARISON STUDY: Chest radiograph September 21, 2019. FINDINGS: Lung volumes are at the upper limits of normal. There is no pneumothorax or pleural the eff usion. Note is made of cardiomegaly. There is mitral annular calcification. Mild interstitial thicken ing persists. No lobar consolidation is present. IMPRESSION: Mild interstitial prominence. This may reflect pulmonary vascular congestion, an infecti ous process or interstitial lung disease. ACT 112: Negative or not required by law. Electronically signed by: Jb Carpio M.D. 09/24/2019 9:24 AM
--- NOTE | 2019-09-24 13:02 | Discharge Summary ---
Date of Service date of admission - September 21, 2019 date of discharge - September 24, 2019 Admission HPI Per Admitting Provider Patient is a 73 years old female with past medical history of diabetes mellitus type 2, hyperlipidemia, hypertension chronic venous insufficiency who presented to the emergency room with a complaint of fever for 4 days, cough malaise and feeling sick. Patient reports having a body aches but she did not come to the emergency room earlier because of her being sick. Patient said on occasion she had fever of 103F at home. Patient reports productive sputum. Patient denies headache, chest pain, abdominal pain, melena, frequency, urgency. Labs are reviewed: WBC is 10.85, hemoglobin 14.3, hematocrit 42.3 platelets 248. PT 10.3, INR 1, APTT 28.7. Sodium 137, potassium 3.9, chloride 103, anion gap 6, BUN 25, creatinine 1.08, GFR 50.9, globin A1c from March 2019 8.2, AST 30, ALT 35, troponin 0.015, TSH pending, BNP pending. Chest x-rays bilateral reticular opacity may reflect pulmonary edema. Atypical pneumonitis or chronic fibrotic changes that are new from 2005. Decision was made to admit to [facility] patient to rule out possible pneumonia and to treat influenza A. Principal Diagnosis influenza A infection Discharge Exam Constitutional no acute distress and no altered mental status ENMT external ear and nose normal, oropharynx normal Respiratory no respiratory distress Auscultation: + crackles (minimal - scattered) and + wheezes (b/l - mild only - scattered ) Cardiovascular Rate/Rhythm: regular rate and regular rhythm Heart Sounds: normal S1 and normal S2; no murmur Vessels: posterior tibial pulses present and dorsalis pedis pulses present; no JVD Gastrointestinal (Abdomen) normal bowel sounds, soft, nontender, no hepatosplenomegaly Skin fingernail clubbing Psychiatric A+Ox3, euthymic affect Discharge Data Allergies Allergy/AdvReac Type Severity Reaction Status Date / Time latex Allergy Intermediate Rash Verified 09/21/19 15:59 cinnamon AdvReac Intermediate Hematuria Verified 09/21/19 15:59 lisinopril AdvReac Intermediate Cough Verified 09/21/19 15:59 losartan AdvReac Intermediate Skin Verified 09/21/19 15:59 crawling sensation Procedures Performed chest x-ray Hospital Course (1) Influenza A: Received course of tamiflu while here. Will need 3 more doses of such after discharge. She was afebrile her entire stay suggesting that most of her flu course had been experienced at home prior to admission. She was eating well at discharge, ambulating, and denied any fevers/chills/myalgias/arthralgias at discharge. (2) Pneumonia: community-acquired pneumonia vs interstitial lung process vs other as seen on chest x-ray. Initially received rocephin/zithromax then was transitioned to PO levaquin; will complete 7 days in total of IV/PO antibiotics. blood cx's negative while hospitalized. (3) COPD (chronic obstructive pulmonary disease): patient with longstanding smoking history and clubbing of her nails. She has had asthma her entire life dating back to childhood. She most-likely has underlying COPD given her long-standing smoking history. She was treated for COPD exacerbation with nebs/IV steroids and transitioned to PO prednisone at discharge. Again the patient's chest x-ray suggests underlying fibrosis. I have set her up to see pulmonary as an outpatient. At minimum will need PFTs. She potentially may need chest CT to exclude fibrosis of the lungs. She was encouraged to stay smoke free. At discharge formal 2-step was completed. She DOES qualify for ambulatory O2. Will need 2 L NC O2 with WALKING/AMBULATION only. O2 sats during sleep and at rest are normal. (4) Diabetes mellitus type 2, uncontrolled: Treated with lantus and novolog while here. She will transition back to her normal insulin and oral agent regimen at discharge. (5) Hyperlipidemia: not on Rx at this time (6) Hypertension: takes lasix only BPs controlled while hospitalized (7) Tobacco abuse: encouraged to quit smoking Total Time Total Time Spent Total Time Spent (In Minutes): 40 Total Time Includes: Examination of the Patient, Discharge Planning and Medication Reconciliation Discharge Plan Discharge Items Patient Disposition: Home - Self-Care Reason For Visit: PNEUMONIA,INFLUENZA A infection Discharge Diagnosis: 1. influenza A infection - resolved 2. possible pneumonia - resolved 3. 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 fingernail clubbing - due to #3 above Activity: As commented below Activity Comment: take it easy for another 1-2 days then gradually increase activities Driving/Machine Use: Resume 1 day after discharge Non-emergency contact: Primary Care Provider and Avionics Mechanic Call non-emergency contact if: you have any medication questions and you have a fever Follow-up/Referrals: Jayne Mayo, [Primary Care Provider] - (see Dr Mayo shortly after [place] (within 5-7 days)) Diet: Carb Consistent or DM2 and Heart Healthy Addtl Attending Provider Instructions: You were treated for influenza type A infection, asthma/COPD exacerbation, and possible pneumonia. You improved with nebulizer treatments, antibiotics, steroids, and tamiflu medication for the flu. Your oxygen levels were normal at rest; however, with activity, your levels dropped to 86%. You technically qualify for home oxygen - to be used with activity only (2 liters). We noted that you have clubbing of your fingernails which is typically a sign of chronically low oxygen levels. Your chest x-rays appear to show a lung condition called fibrosis. This will need follow-up with the lung specialist. I am also concerned that you now have COPD from your smoking. Recommendations - 1. oxygen 2 liters with activity only 2. prednisone course - start tomorrow, 09/25/19 3. antibiotics (levofloxacin) 750mg -- first dose on 09/25, and 2nd dose on 09/27 4. tamiflu for your influenza A - you need 3 more doses (dose #1 tonight, dose #2 tomorrow AM, and dose #3 tomorrow PM). You are HIGHLY UNLIKELY to be contagious at this time. However, when you come to visit the hospital, please wear a mask just to be safe. 5. stay smoke-free if at all possible, especially since you will be wearing oxygen, and also because ongoing smoking will continue to cause lung damage. 6. you may use duonebs with a neb machine, if desired, for cough/shortness of breath/wheezing. The liquid duoneb medication is obtained from [employer]; the actual machine is obtained from [employer] on the [employer] (or other [employer] supply center). 7. follow-up -- * see Dr Mayo late this coming week * see any of the lung specialists with [facility] within 3-4 weeks; we can help you set this up Return to [facility] if -- * you have worsening shortness of breath * you have recurrent fevers over 100.5 degrees * you have worsening diarrhea * you have chest pain * any other concerns Pending Studies at Discharge: No Stand-Alone Forms: My [facility], Smoking Cessation Medications and DC Order Prescriptions: New oseltamivir [Tamiflu] 6 mg/mL Suspension For Reconstitution 30 mg PO BID Qty: 15 RF: 0 levofloxacin 750 mg Tablet 750 mg PO DIRECTED Qty: 2 RF: 0 prednisone 10 mg tablet 10 mg PO DIRECTED Qty: 12 RF: 0 (DME) Oxygen Home Liters Per Minute See Rx Instructions .ROUTE .MEDSUPPLY Qty: 1 RF: 0 (DME) nebulizers mis See Rx Instructions .ROUTE .MEDSUPPLY Qty: 1 RF: 0 ipratropium-albuterol 0.5 mg-3 mg(2.5 mg base)/3 mL solution for nebulization 3 ml INH Q6H PRN (Reason: wheezing, cough, shortness of breath) Qty: 90 RF: 0 Continued metformin 1,000 mg tablet 1,000 mg PO BID 90 Days Qty: 180 RF: 3 (DME) Prodigy No Coding strip See Dose Instructions .ROUTE .MEDSUPPLY Qty: 400 RF: 3 fluticasone propion-salmeterol [Advair Diskus] 250-50 mcg/dose blister with device 1 puffs inhalation Q12H Qty: 180 RF: 3 cholecalciferol (vitamin D3) 5,000 unit capsule 5,000 units PO QAM Qty: 30 RF: 0 aspirin 325 mg tablet 325 mg PO QAM RF: 0 ascorbic acid (vitamin C) 1,000 mg tablet 1,000 mg PO BID RF: 0 (DME) lancets [Prodigy Lancets] 28 gauge misc See Dose Instructions .ROUTE .MEDSUPPLY Qty: 25 RF: 0 multivitamin [Daily Multi-Vitamin] tablet 1 tab PO QAM RF: 0 glipizide 10 mg tablet extended release 24hr 10 mg PO QAM Qty: 90 RF: 0 vitamin E 1,000 unit Capsule 1,000 unit PO QAM RF: 0 vitamin B complex Tablet 1 tab PO QAM RF: 0 albuterol sulfate [Ventolin HFA] 90 mcg/actuation HFA aerosol inhaler 2 inh inhalation Q6H PRN (Reason: Shortness Of Breath Or Wheezing) RF: 0 Humulin N NPH Insulin KwikPen 100 unit/mL (3 mL) insulin pen 30 unit SUBCUT QPM RF: 0 furosemide 40 mg tablet 40 mg PO QAM RF: 0 Discharge Orders: Discharge Order (Routine); Ordered 09/24/19 Ordered By: Donta Ho Admission Data Admit Date/Time: 09/21/19 16:55 Attending Provider: Donta Ho Admit Provider: Kashif Chew Primary Care Provider: Jayne Mayo Other Providers: Kashif Chew Other Interventions: Discharge Summary Assessment (RN) Last Done: 09/24/19 13:44 DC Date/Time DO NOT enter until pt leaves facility: 09/24/19 18:00
[2019-09-24 13:46] VITALS: BP 117/69; O2SAT 92
[2019-09-24 15:06] VITALS: PULSE 98
[2019-09-25] MEDS ORDERED: levoFLOXacin 750 MG TAB PO SCH (11:00)
== END 2019-09-24 18:00 | disposition home or self-care (01) | DRG 195 ==
LOC: ED 14:12 → 4W 16:55 → SUATTDRO 16:55 → 4W 17:20

== ENCOUNTER 2022-11-12 14:26 | Inpatient (IN) ==
--- NOTE | 2022-11-12 14:32 | Emergency Department Note ---
Impression & Plan Atrial fibrillation with rapid ventricular response, Acute exacerbation of CHF (congestive heart failure), Pleural effusion, bilateral, Acute hypoxemic respiratory failure, Anemia ED Provider Note NAME: MISTY MASTERS AGE: 77 SEX: F : 1945 ARRIVES VIA: Ambulance INFORMANT: Patient, ED PROVIDER(S): Julian Herrera MD CHIEF COMPLAINT: Shortness of breath, A-fib RVR, outpatient referral MEDICAL DECISION MAKING: Patient presents due to concern for shortness of breath and tachycardia. The patient was referred from cardiology office due to concern for acute onset of A- fib with RVR. Patient was immediately hooked up to the monitor and was noted to be hypoxemic with a pulse oximetry of 82% on 4 L. I did have nursing call respiratory to patient's place and on BiPAP. I did speak with respiratory did state the pat ient would benefit from Xopenex and Atrovent nebs and would not like to use any beta adrenergic meds given the patient's tachycardia. The patient did have IV established blood work was obtained along with a chest x-ray BNP. The patient was ordered 40 of Lasix IV. Patient did have significant improvement in her symptoms. The patient was reevaluated several times. Tachycardia improved to the low 100s as well as the patient's tachypnea. Patient's blood work showed a white count of 18. The patient does not complain of any infectious symptoms and this may be reactive from the patient's tachy cardia. Anemia of 10 noted. Patient did have a hemoglobin of 11 back in June. VBG with no h mild hypercarbia PCO2 59 but VBG pH 7.35. The patient's creatinine was 1.5 slightly elevated from before. Troponin was 25 with a BNP of 303. Pro-Mychal is not elevated. Chest x-ray with pulmonary edema and pleural effusions. Antibiotics deferred to inpatient team. Anticoagulation deferred to inpatient team. I did speak with the on-call hospitalist Dr. Robison and the patient was admitted to the medicine service. Critical Care: I have personally spent 77 minutes of critical care time in direct management of this patient. This includes bedside care, interpretation of diagnostic studies, and testing, discussion with consultants, patient, and family members, and other require inpatient management activities. This 77 minutes is in excess of all separately billable procedures. Prior /Outside records reviewed: I did review the patient's pulmonary care visit from July [address] Vásquez. Patient does have a known history of COPD chronic respiratory failure with hypoxia and tobacco abuse. Patient has a [id number] smoking history quit in September 2019. Differential diagnosis: Reactive airway disease, pneumonia, pneumothorax, COPD, CHF, infections, cardiac ischemia, pulmonary embolism, musculoskeletal, gastrointestinal, as well as other pathologies. Diagnostics, as interpreted by me: ECG: A-fib with RVR, rate of 133 normal QRS, normal axis significant motion artifact noted. Repeat EKG interpreted by me A-fib with RVR rate of 111, normal QRS normal axis no ST elevations. Cardiac monitoring: An order was placed for continuous cardiac monitoring. The monitor shows a rate of 155 with tachycardic and irregularly irregular rhythm. Patient was placed on pulse oximetry Medical decision rules: None Imaging studies: See below HPI: Patient presents from the cardiology office today due to concern for A-fib with RVR. The patient was noted to be hypoxemic in the 80s and 90s and was put on nasal cannula oxygen. The patient does wear 2 L at all times occasionally 3 L with exertion. The patient has complained of increasing shortness of breath today was noted to be in A-fib with RVR and referred here for further evaluation and treatment. Patient was at the cardiology office for an echocardiogram but was found to have A-fib with RVR. Patient states that she had noted that her heart rate was elevated over the last several weeks when she would put her pulse oximeter on but never had any palpitations or chest pains. Patient denies any nausea vomiting or diarrhea. Patient denies any prior history of A-fib. Patient does not take any blood thinning medications. No fevers or chills. No cough. Patient does have chronic leg swelling which she does not think is much change from before. No history of DVT or PE. PAST MEDICAL HISTORY: See Below PAST SURGICAL HISTORY: See Below SOCIAL HISTORY: See Below HOME MEDICATIONS: See Below ALLERGIES: See Below VITALS: See Below PHYSICAL EXAMINATION: GENERAL: Severe distress, conversational dyspnea and tachypnea, nasal cannula in place, ashen in appearance. EYE EXAM: Normal conjunctiva. PERRL, no anisocoria and EOM's grossly intact w/o pain. NECK: Supple, no nuchal rigidity, no adenopathy, non-tender. No signs of meningismus. FROM of the neck with good chin to chest and neck extension. No stridor. LUNGS: Decreased breath sounds throughout, tachypnea, accessory muscle use noted HEART: Tachycardic and irregularly irregular, no MRG. ABDOMEN: Abdomen soft, non-tender, normo-active bowel sounds, no masses, no rebound or guarding. BACK: No CVA TTP. SKIN: No rashes and no bruising. UPPER EXTREMITIES: Upper extremities are grossly normal. LOWER EXTREMITIES: Grossly normal, 1+ bilateral symmetric lower extremity edema without any calf pain or erythema NEURO EXAM: A&O x3, cranial nerves II-XII grossly intact, normal speech, moves all 4 extremities. Past Med/Surg History Medical History Albuminuria Asthma Chronic respiratory failure with hypoxia Chronic venous insufficiency COPD (chronic obstructive pulmonary disease) Diabetic nephropathy DM (diabetes mellitus), type 2, uncontrolled, with renal complications Hypertension LVH (left ventricular hypertrophy) Mitral regurgitation Mitral stenosis Obesity Type 2 diabetes mellitus Surgical History H/O: hysterectomy still has ovaries. secondary to DUB/prolapse S/P appendectomy S/P cholecystectomy S/P tonsillectomy S/P tubal ligation Status post surgery surgical Family History Mother Osteoporosis Hypertension Bladder cancer Father Heart disease H/O heart bypass surgery Son Dissecting AAA (abdominal aortic aneurysm) Denies family history of Ovarian cancer Prostate cancer Myocardial infarction Breast cancer Colorectal cancer Social History Smoking Status: Former smoker Age Started Using Tobacco: 9; packs per day: 0.5; Second Hand Exposure: Yes; Hx Alcohol Use: No Hx Substance Use: No Preferred Language: Irish Communication Ability: Effective Visual Impairment: No Limitations Hearing Ability: Normal Fluxer Required: No Beliefs That Will Affect Care: None marital status: / marital status details: lost January 2020 Current Living Situation: Alone current occupational status: 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 Feels Safe at Home: Yes Childhood Exposure to Second-Hand Smoke: Yes Diet Comment: regular caffeine: Yes (coffee, 20 oz a day) during the past year weight has: remained stable Dental Care, Regularly: Yes Physical Activity Frequency: Does not Exercise Seatbelt Use: always Sunscreen Use: Yes Assistive Devices: None Allergies Allergies Allergy/AdvReac Type Severity Reaction Status Date / Time latex Allergy Intermediate Rash Verified 09/21/22 11:28 cinnamon AdvReac Intermediate Hematuria Verified 09/21/22 11:28 lisinopril AdvReac Intermediate Cough Verified 09/21/22 11:28 losartan AdvReac Intermediate Skin Verified 09/21/22 11:28 crawling sensation Home Meds Home Medications Medication Instructions Recorded Confirmed ascorbic acid (vitamin C) 1,000 mg 1,000 mg PO BID 05/22/19 09/21/22 tablet aspirin 325 mg tablet 325 mg PO QAM 05/22/19 09/21/22 lancets 28 gauge (Prodigy Lancets) #25 ea 05/22/19 09/21/22 multivitamin (Daily Multi-Vitamin 1 tab PO QAM 05/22/19 09/21/22 tablet) vitamin B complex 1 tab PO QAM 09/21/19 09/21/22 vitamin E 670 mg (1,000 unit) 1,000 unit PO QAM 09/21/19 09/21/22 capsule omega 3,6,9 combination no.7 92 mg mg PO 11/19/21 09/21/22 (43 mg-22 [id number]) chew tablet cholecalciferol (vitamin D3) 125 10,000 unit PO QAM #30 caps 09/21/22 09/21/22 mcg (5,000 unit) capsule Previous Rx's Medication Instructions Recorded Oxygen Home See Rx Instructions .Route 12/05/20 .COMPLEX #1 ea Portable Oxygen #1 ea 12/05/20 albuterol sulfate 90 mcg/actuation 2 puff inhalation Q6H PRN 11/28/21 aerosol inhaler Shortness Of Breath Or Wheezing #18 grams fluticasone 250 mcg-salmeterol 50 1 inh inhalation Q12H #180 ea 11/28/21 mcg/dose blistr powdr for inhalation (Advair Diskus) blood sugar diagnostic (Prodigy No #400 ea 01/02/22 Coding strips) semaglutide 1 mg/dose (4 mg/3 mL) 1 mg (0.75 mL) subcut Q7D #9 mL 03/04/22 subcutaneous pen injector (Ozempic) umeclidinium 62.5 mcg/actuation 1 inh inhalation DAILY #3 Inhalers 07/15/22 blister powder for inhalation (Incruse Ellipta) insulin NPH isoph U-100 human 100 30 unit (0.3 mL) subcut BID 90 07/20/22 unit/mL (3 mL) subcutaneous pen days #54 Boxes (Humulin N NPH U-100 Insulin KwikPen) metformin 1,000 mg tablet 1,000 mg PO BID 90 days #180 tabs 07/20/22 furosemide 40 mg tablet 40 mg .Route BID #180 tabs 10/27/22 Results & Data (ED) Vital Signs Vital Signs - 24 hr 11/12/22 14:52 11/12/22 14:54 11/12/22 14:56 Temperature 37.1 C Temperature Source Oral Pulse Rate 105 H 145 H Pulse Rate from SpO2 Sensor Respiratory Rate 30 H 31 H 35 H Respiratory Effort / Characteristics Spontaneous Labored Spontaneous Labored Spontaneous Labored Short of Breath Respiratory Depth Normal Shallow Blood Pressure 143/101 H Blood Pressure Mean 115 Pulse Oximetry 99 98 83 L Oxygen Delivery Method BiPAP Nasal Cannula Oxygen Flow Rate 3 Fraction of Inspired Oxygen 30 30 Sepsis New/Unexplained Change in Mental Status N/A Sepsis Action Taken by Nursing Physician Notified 11/12/22 15:05 11/12/22 15:00 Temperature Temperature Source Pulse Rate 105 H Pulse Rate from SpO2 Sensor 114 H Respiratory Rate 35 H Respiratory Effort / Characteristics Spontaneous Labored Short of Breath Respiratory Depth Shallow Blood Pressure 117/81 Blood Pressure Mean 93 Pulse Oximetry 94 Oxygen Delivery Method BiPAP Oxygen Flow Rate Fraction of Inspired Oxygen Sepsis New/Unexplained Change in Mental Status Sepsis Action Taken by Long Term Medications Current Medication List: was personally reviewed by me Laboratory Data Attestation: I reviewed the patient's lab results. 11/12/22 14:45 11/12/22 14:45 Lab Results 11/12/22 11/12/22 11/12/22 Range/Units 14:45 14:45 14:45 WBC 18.21 H (4.8-10.8) K/ul RBC 3.51 L (4.20-5.40) M/uL Hgb 10.0 L (12.0-16.0) g/dl POC Hgb (12.0-16.0) g/dl Hct 32.0 L (37.0-47.0) % POC Hct (37-47) % MCV 91.2 (80.0-100.0) fL MCH 28.5 (25.0-34.0) pg MCHC 31.3 L (32.0-36.0) g/dL RDW Std Deviation 56.3 H (36.4-46.3) fL RDW Coeff of Dee 17.0 H (11.5-14.5) % Plt Count 408 H (130-400) K/uL MPV 10.1 (9.4-12.4) fL Immature Gran % (Auto) 0.8 % Neut % (Auto) 84.6 % Lymph % (Auto) 7.2 % Kidder % (Auto) 5.1 % Eos % (Auto) 1.5 % Baso % (Auto) 0.8 % Neut # (Auto) 15.41 H (1.40-6.50) K/uL Lymph # (Auto) 1.31 (1.2-3.4) K/uL Kidder # (Auto) 0.92 H (0.11-0.59) K/uL Eos # (Auto) 0.28 (0-0.50) K/uL Baso # (Auto) 0.14 (0-0.2) K/uL Immature Gran # (Auto) 0.15 (0.01-0.20) K/uL PT 11.3 (9.0-12.0) Seconds INR 1.1 (0.9-1.1) APTT 22.6 (21.0-31.0) Seconds PTT Ratio 0.8 VBG pH (7.36-7.41) VBG pCO2 (38-50) mmHg VBG pO2 mmHg VBG HCO3 mmol/L VBG O2 Saturation % VBG Base Excess mEq/L POC Sodium (135-144) mmol/L Sodium 142 (136-145) mmol/L POC Potassium (3.3-5.0) mmol/L Potassium 3.6 (3.5-5.1) mmol/L POC Chloride (101-112) mmol/L Chloride 101 (98-107) mmol/L Carbon Dioxide 30 (21-32) mmol/L POC Total CO2 (24-31) mmol/L Anion Gap 11 (3-11) POC Anion Gap (16-25) mmol/L POC BUN (7-18) mg/dl BUN 29 H (6-23) mg/dl Creatinine 1.51 H (0.6-1.2) mg/dl POC Creatinine (0.6-1.3) mg/dl Est Cr Clr Drug Dosing 34.3 ml/min Est GFR ( Amer) 38.2 ml/min Est GFR (Non-Af Amer) 33.0 ml/min BUN/Creatinine Ratio 19.2 (10-20) Glucose 189 H (70-99(Fasting)) mg/dl POC Glucose (other) (70-99) mg/dl Calcium 9.9 (8.5-10.1) mg/dl POC Ioniz Calcium Gabriel (1.12-1.32) mmol/l Total Bilirubin 0.7 (0.2-1.0) mg/dl AST 19 (13-39) U/L ALT 18 (7-52) U/L Alkaline Phosphatase 52 (34-104) U/L Troponin I High Sens 25.5 H (0-14) pg/ml B-Natriuretic Peptide (0-100) pg/ml Total Protein 8.5 H (6.0-8.3) gm/dl Albumin 4.0 (3.4-5.0) gm/dl Globulin 4.5 H (2.5-4.0) gm/dl Albumin/Globulin Ratio 0.9 (0.9-2) Procalcitonin (0-0.5) ng/ml 11/12/22 11/12/22 11/12/22 Range/Units 14:45 15:00 15:00 WBC (4.8-10.8) K/ul RBC (4.20-5.40) M/uL Hgb (12.0-16.0) g/dl POC Hgb (12.0-16.0) g/dl Hct (37.0-47.0) % POC Hct (37-47) % MCV (80.0-100.0) fL MCH (25.0-34.0) pg MCHC (32.0-36.0) g/dL RDW Std Deviation (36.4-46.3) fL RDW Coeff of Dee (11.5-14.5) % Plt Count (130-400) K/uL MPV (9.4-12.4) fL Immature Gran % (Auto) % Neut % (Auto) % Lymph % (Auto) % Kidder % (Auto) % Eos % (Auto) % Baso % (Auto) % Neut # (Auto) (1.40-6.50) K/uL Lymph # (Auto) (1.2-3.4) K/uL Kidder # (Auto) (0.11-0.59) K/uL Eos # (Auto) (0-0.50) K/uL Baso # (Auto) (0-0.2) K/uL Immature Gran # (Auto) (0.01-0.20) K/uL PT (9.0-12.0) Seconds INR (0.9-1.1) APTT (21.0-31.0) Seconds PTT Ratio VBG pH 7.35 L (7.36-7.41) VBG pCO2 59 H (38-50) mmHg VBG pO2 49 mmHg VBG HCO3 33 mmol/L VBG O2 Saturation 78.4 % VBG Base Excess 5.2 mEq/L POC Sodium (135-144) mmol/L Sodium (136-145) mmol/L POC Potassium (3.3-5.0) mmol/L Potassium (3.5-5.1) mmol/L POC Chloride (101-112) mmol/L Chloride (98-107) mmol/L Carbon Dioxide (21-32) mmol/L POC Total CO2 (24-31) mmol/L Anion Gap (3-11) POC Anion Gap (16-25) mmol/L POC BUN (7-18) mg/dl BUN (6-23) mg/dl Creatinine (0.6-1.2) mg/dl POC Creatinine (0.6-1.3) mg/dl Est Cr Clr Drug Dosing ml/min Est GFR ( Amer) ml/min Est GFR (Non-Af Amer) ml/min BUN/Creatinine Ratio (10-20) Glucose (70-99(Fasting)) mg/dl POC Glucose (other) (70-99) mg/dl Calcium (8.5-10.1) mg/dl POC Ioniz Calcium Gabriel (1.12-1.32) mmol/l Total Bilirubin (0.2-1.0) mg/dl AST (13-39) U/L ALT (7-52) U/L Alkaline Phosphatase (34-104) U/L Troponin I High Sens (0-14) pg/ml B-Natriuretic Peptide 303 H (0-100) pg/ml Total Protein (6.0-8.3) gm/dl Albumin (3.4-5.0) gm/dl Globulin (2.5-4.0) gm/dl Albumin/Globulin Ratio (0.9-2) Procalcitonin < 0.05 (0-0.5) ng/ml 11/12/22 Range/Units 15:14 WBC (4.8-10.8) K/ul RBC (4.20-5.40) M/uL Hgb (12.0-16.0) g/dl POC Hgb 10.5 L (12.0-16.0) g/dl Hct (37.0-47.0) % POC Hct 31 L (37-47) % MCV (80.0-100.0) fL MCH (25.0-34.0) pg MCHC (32.0-36.0) g/dL RDW Std Deviation (36.4-46.3) fL RDW Coeff of Ede (11.5-14.5) % Plt Count (130-400) K/uL MPV (9.4-12.4) fL Immature Gran % (Auto) % Neut % (Auto) % Lymph % (Auto) % Kidder % (Auto) % Eos % (Auto) % Baso % (Auto) % Neut # (Auto) (1.40-6.50) K/uL Lymph # (Auto) (1.2-3.4) K/uL Kidder # (Auto) (0.11-0.59) K/uL Eos # (Auto) (0-0.50) K/uL Baso # (Auto) (0-0.2) K/uL Immature Gran # (Auto) (0.01-0.20) K/uL PT (9.0-12.0) Seconds INR (0.9-1.1) APTT (21.0-31.0) Seconds PTT Ratio VBG pH (7.36-7.41) VBG pCO2 (38-50) mmHg VBG pO2 mmHg VBG HCO3 mmol/L VBG O2 Saturation % VBG Base Excess mEq/L POC Sodium 141 (135-144) mmol/L Sodium (136-145) mmol/L POC Potassium 3.8 (3.3-5.0) mmol/L Potassium (3.5-5.1) mmol/L POC Chloride 101 (101-112) mmol/L Chloride (98-107) mmol/L Carbon Dioxide (21-32) mmol/L POC Total CO2 31 (24-31) mmol/L Anion Gap (3-11) POC Anion Gap 14.0 L (16-25) mmol/L POC BUN 28 H (7-18) mg/dl BUN (6-23) mg/dl Creatinine (0.6-1.2) mg/dl POC Creatinine 1.6 H (0.6-1.3) mg/dl Est Cr Clr Drug Dosing ml/min Est GFR ( Amer) ml/min Est GFR (Non-Af Amer) ml/min BUN/Creatinine Ratio (10-20) Glucose (70-99(Fasting)) mg/dl POC Glucose (other) 175 H (70-99) mg/dl Calcium (8.5-10.1) mg/dl POC Ioniz Calcium Gabriel 1.25 (1.12-1.32) mmol/l Total Bilirubin (0.2-1.0) mg/dl AST (13-39) U/L ALT (7-52) U/L Alkaline Phosphatase (34-104) U/L Troponin I High Sens (0-14) pg/ml B-Natriuretic Peptide (0-100) pg/ml Total Protein (6.0-8.3) gm/dl Albumin (3.4-5.0) gm/dl Globulin (2.5-4.0) gm/dl Albumin/Globulin Ratio (0.9-2) Procalcitonin (0-0.5) ng/ml Administered Medications Ipratropium Pillager (Ipratropium Pillager Neb Soln 0.02% 2.5 Ml Vial) 0.5 mg INH UD TALAT Stop: 12/12/22 14:44 Last Admin: 11/12/22 14:51 Dose: 0.5 mg Documented By: HMR Levalbuterol HCl (Levalbuterol 1.25mg/0.5ml Neb) 1.25 mg INH UD TALAT Stop: 12/12/22 14:44 Last Admin: 11/12/22 14:50 Dose: 1.25 mg Documented By: HMR Discontinued Medications Diltiazem HCl (Diltiazem Hcl 5 Mg/Ml 5 Ml Vial) 25 mg IV NOW STA Stop: 11/12/22 14:40 Last Admin: 11/12/22 14:47 Dose: 25 mg Documented By: CUCA Co-signed By: LETITIA Furosemide (Furosemide 40 Mg/4 Ml Vial) 40 mg IV NOW STA Stop: 11/12/22 14:40 Last Admin: 11/12/22 14:51 Dose: 40 mg Documented By: CUCA Miscellaneous (Xopenex/Atrovent 1.25mg/0.5mg Neb Combo) 1 each NEB NOW STA; Protocol Stop: 11/12/22 14:40 Last Admin: 11/12/22 14:51 Dose: 1 each Documented By: EM Imaging Data Radiologist's Impression: Chest X-Ray 11/12/22 14:39 XR chest 1V portable HISTORY: Dyspnea COMPARISON: Chest CT 06/29/2022. FINDINGS: No pneumothorax. There are small bilateral pleural effusions. The heart remains mildly enlarged. There is progressive interstitial/vascular thickening consistent with mild pulmonary edema. There are mitral annulus calcifications again noted. IMPRESSION: Interval progression of the pulmonary edema and small bilateral pleural effusions. ACT 112: Negative or not required by law. Electronically signed by: Toño Moncada M.D. 11/12/2022 3:12 PM Discharge Plan Visit Data Chief Complaint: Arrhythmia/Palpitations Stated Complaint: afib ED Provider: Julian Herrera Discharge Problem: Atrial fibrillation with rapid ventricular response, Acute exacerbation of CHF (congestive heart failure), Pleural effusion, bilateral, Acute hypoxemic respiratory failure, Anemia Patient Disposition: Admitted As Inpatient Forms Stand Alone Forms: [facility] [employer] Prescriptions Prescriptions: No Action (DME) Prodigy No Coding Strip See Dose Instructions .ROUTE .MEDSUPPLY Qty: 400 3RF Dose Instruction: As directed Rx Instructions: Test 4 times daily Ozempic 1 mg/dose (4 mg/3 mL) pen injector 1 mg subcut Q7D Qty: 9 3RF metformin 1,000 mg tablet 1,000 mg PO BID 90 Days Qty: 180 3RF Humulin N NPH Insulin KwikPen 100 unit/mL (3 mL) insulin pen 30 unit SUBCUT BID 90 Days Qty: 54 3RF furosemide 40 mg tablet 40 mg .ROUTE BID Qty: 180 1RF Rx Instructions: 40 mg twice a day; omega 3,6,9 combination no.7 92 mg (43 mg-22 [id number]) tablet,chewable PO fluticasone propion-salmeterol [Advair Diskus] 250-50 mcg/dose blister with device 1 inh inhalation Q12H Qty: 180 6RF albuterol sulfate 90 mcg/actuation HFA aerosol inhaler 2 puff inhalation Q6H PRN (Reason: Shortness Of Breath Or Wheezing) Qty: 18 3RF aspirin 325 mg tablet 325 mg PO QAM ascorbic acid (vitamin C) 1,000 mg tablet 1,000 mg PO BID (DME) lancets [Prodigy Lancets] 28 gauge misc See Dose Instructions .ROUTE .MEDSUPPLY Qty: 25 Rx Instructions: Test 4 times daily multivitamin [Daily Multi-Vitamin] tablet 1 tab PO QAM cholecalciferol (vitamin D3) 125 mcg (5,000 unit) capsule 10,000 unit PO QAM Qty: 30 Oxygen Home Liters Per Minute See Rx Instructions .ROUTE .COMPLEX Qty: 1 0RF Rx Instructions: As directed; Use 2L NC w/ exertion. Dx: J96.11 (DME) Portable Oxygen Misc See Rx Instructions .ROUTE .MEDSUPPLY Qty: 1 0RF Rx Instructions: As directed. 2L NC w/ activity. Dx: J96.11 Incruse Ellipta 62.5 mcg/actuation blister with device 1 inh inhalation DAILY Qty: 3 4RF vitamin E 1,000 unit Capsule 1,000 unit PO QAM vitamin B complex Tablet 1 tab PO QAM Referrals Referrals: Jayne Mayo DO [Primary Care Provider] -
[2022-11-12] MEDS ORDERED: ALBUT/IPRATROP 3MG/0.5MG NEB 3 ML VIAL INH STA (14:39)
[2022-11-12] MEDS ORDERED: dilTIAZem HCl 5 MG/ML 5 ML VIAL IV STA (14:39)
[2022-11-12] MEDS ORDERED: FUROSEMIDE 40 MG/4 ML VIAL IV STA (14:39)
[2022-11-12] MEDS ORDERED: XOPENEX/ATROVENT 1.25mg/0.5MG NEB COMBO NEB STA (14:39)
[2022-11-12] MEDS ORDERED: LEVALBUTEROL 1.25MG/0.5ML NEB INH SCH (14:45)
[2022-11-12] MEDS ORDERED: IPRATROPIUM BROMIDE NEB SOLN 0.02% 2.5 ML VIAL INH SCH (14:45)
[2022-11-12 15:04] LABS: Basophils # (auto) 0.14 K/uL (0-0.2); Basophils % (auto) 0.8 %; Eosinophils # (auto) 0.28 K/uL (0-0.50); Eosinophils % (auto) 1.5 %; Immature Granulocytes # (auto) 0.15 K/uL (0.01-0.20); Immature Granulocytes % (auto) 0.8 %; Lymphocytes # (auto) 1.31 K/uL (1.2-3.4); Lymphocytes % (auto) 7.2 %; Mean Corpuscular Hemoglobin 28.5 pg (25.0-34.0); Mean Corpuscular Hgb Conc 31.3 g/dL (32.0-36.0); Mean Corpuscular Volume 91.2 fL (80.0-100.0); Mean Platelet Volume 10.1 fL (9.4-12.4); Monocytes # (auto) 0.92 K/uL (0.11-0.59); Monocytes % (auto) 5.1 %; Neutrophils # (auto) 15.41 K/uL (1.40-6.50); Neutrophils % (auto) 84.6 %; Platelet Count 408 K/uL (130-400); RDW Standard Deviation 56.3 fL (36.4-46.3); Red Blood Count 3.51 M/uL (4.20-5.40); White Blood Count 18.21 K/ul (4.8-10.8)
[2022-11-12 15:10] LABS: Base Excess VBG 5.2 mEq/L; HCO3 VBG 33 mmol/L; Oxygen Saturation VBG 78.4 %; PCO2 VBG 59 mmHg (38-50); PO2 VBG 49 mmHg; pH VBG 7.35 (7.36-7.41)
--- NOTE | 2022-11-12 15:13 | XRay Report ---
XR chest 1V portable HISTORY: Dyspnea COMPARISON: Chest CT 06/29/2022. FINDINGS: No pneumothorax. There are small bilateral pleural effusions. The heart remains mildly enla rged. There is progressive interstitial/vascular thickening consistent with mild pulmonary edema. The re are mitral annulus calcifications again noted. IMPRESSION: Interval progression of the pulmonary edema and small bilateral pleural effusions. ACT 112: Negative or not required by law. Electronically signed by: Toño Moncada M.D. 11/12/2022 3:12 PM
[2022-11-12 15:18] LABS: INR 1.1 (0.9-1.1); Partial Thromboplastin Ratio 0.8; Partial Thromboplastin Time 22.6 Seconds (21.0-31.0); Prothrombin Time 11.3 Seconds (9.0-12.0)
[2022-11-12 15:24] LABS: Bilirubin,Total 0.7 mg/dl (0.2-1.0); Calcium 9.9 mg/dl (8.5-10.1); Potassium 3.6 mmol/L (3.5-5.1)
[2022-11-12 15:28] LABS: iSTAT Creatinine 1.6 mg/dl (0.6-1.3); iSTAT Hemoglobin 10.5 g/dl (12.0-16.0); iSTAT Ionized Calcium 1.25 mmol/l (1.12-1.32); iSTAT Potassium 3.8 mmol/L (3.3-5.0)
[2022-11-12 15:30] LABS: Albumin Globulin Ratio 0.9 (0.9-2); BUN Creatinine Ratio 19.2 (10-20); Creatinine Clr Calc Pharmacy 34.3 ml/min; Est GFR (African American) 38.2 ml/min; Globulin 4.5 gm/dl (2.5-4.0); Total Protein 8.5 gm/dl (6.0-8.3); Troponin I High Sensitivity 25.5 pg/ml (0-14)
--- NOTE | 2022-11-12 16:03 | History & Physical Report ---
Date of Service November 12, 2022 Assessment & Plan (1) Acute and chronic respiratory failure with hypoxia: Plan: Secondary to pulmonary edema as below Can d/c BiPAP Aim O2 sats > 90% Baseline O2 requirement 2LPM O2 at rest and 3LPM O2 on exertion (2) New onset atrial fibrillation: Plan: Given symptoms ongoing for the last month suspect she has been atrial fibrillation with rapid rate for the majority of this time. Initial improved heart rate to low 100s after diltiazem 25mg IV given in ER but now back to 130 bpm - will start on diltiazem IV drip with uptitration starting at 5mg/hr Metoprolol 25mg PO now and q6h with hold parameters TTE - patient reports having this at her outpatient office today therefore will await report Repeat TSH [id number] - 6, HAS-BLED 2 - moderate risk for major bleed. Recommend starting anticoagulation at this time with intravenous heparin. (3) Acute on chronic heart failure with preserved ejection fraction: Plan: Suspect somewhat rate related heart failure Repeat TTE as above Lasix 40 mg IV given in the ER (usual dose 40 mg p.o. twice daily), will continue 40 mg IV twice daily Strict I's and O's Daily weights Low-sodium diet (4) Hypertension: Plan: Continue Lasix/diltiazem/metoprolol as above. Routine monitoring of blood pressure while adjusting these medications. (5) Asthma-COPD overlap syndrome: Plan: Continue Advair Diskus or hospital formulary equivalent Continue Incruse Ellipta or hospital for milliequivalent (6) Leukocytosis: Plan: Appears to be an acute on chronic process. She initially had an unremarkable peripheral smear as previous work-up in June. Mostly mild leukocytosis is just her normal versus ongoing mild inflammatory process - no previous ESR or CRP in [facility] Current worsening of her leukocytosis with neutrophilia suspect a stress reaction and will trend with normal immature granulocytes # No infection signs or symptoms. (7) Type 2 diabetes mellitus: Plan: Hemoglobin A1c 6.1 in September Switch insulin NPH for Lantus 30 units twice daily NovoLog: --Goal BSG Range: Low 110 mg/dL, High 140 mg/dL --Correction Factor: 15 mg/dL/unit --Carbohydrate ratio = 4 g/unit --BSGs ACHS if eating, q6h if npo (8) Mitral stenosis: Plan: Will reevaluate on repeat echo (9) Morbid obesity: Plan VTE Prophylaxis - heparin IV as above Diet - Low Na, heart healthy, T2DM Disposition - admit to PCU Admission and Anticipated Discharge Date Admission Date: November 12, 2022 History of Present Illness Chief Complaint: Shortness of breath Primary Care Provider: Jayne Mayo DO Mara Kumar is a 77 year old female who presents to the ER via EMS 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 fib with RVR with worsening shortness of breath. Patient is on chronic oxygen with 2 to 3 L nasal cannula at home. She reports feeling short of breath and unable to leave her house for the last month. She went to her cardiology office today for routine echocardiogram and was noted to be in A-fib with rapid ventricular rate therefore EMS were called and she was transported to the ER. 15 mg diltiazem IV given by EMS prior to arrival. She denies any chest pain, palpitations, claudication or paroxysmal nocturnal dyspnea. She is experiencing orthopnea. She denies any infective symptoms such as fever, chills, dysuria, abdominal pain, diarrhea, nasal congestion, sinus pain. She reports a cough with clear sputum and shortness of breath as above. In the ER she was noted to have O2 sats 84% on 4 L nasal cannula with increased work of breathing. She was placed on BiPAP, given Lasix 40 mg IV and give albuterol/ipratropium nebulizer and reports already feeling 50% better and wanting to come off the BiPAP. Allergies Allergy/AdvReac Type Severity Reaction Status Date / Time latex Allergy Intermediate Rash Verified 11/12/22 16:49 cinnamon AdvReac Intermediate Hematuria Verified 11/12/22 16:49 lisinopril AdvReac Intermediate Cough Verified 11/12/22 16:49 losartan AdvReac Intermediate Skin Verified 11/12/22 16:49 crawling sensation Home Medications Medication Instructions Recorded Confirmed Type ascorbic acid (vitamin C) 1,000 mg 1,000 mg PO BID 05/22/19 11/12/22 History tablet aspirin 325 mg tablet 325 mg PO HS 05/22/19 11/12/22 History lancets 28 gauge (Prodigy Lancets) #25 ea 05/22/19 09/21/22 History multivitamin (Daily Multi-Vitamin 1 tab PO QAM 05/22/19 11/12/22 History tablet) vitamin B complex 1 tab PO QAM 09/21/19 11/12/22 History vitamin E 670 mg (1,000 unit) 1,000 unit PO QAM 09/21/19 11/12/22 History capsule Portable Oxygen #1 ea 12/05/20 09/21/22 Rx albuterol sulfate 90 mcg/actuation 2 puff inhalation Q6H PRN 11/28/21 11/12/22 Rx aerosol inhaler Shortness Of Breath Or Wheezing #18 grams fluticasone 250 mcg-salmeterol 50 1 inh inhalation Q12H #180 ea 11/28/21 11/12/22 Rx mcg/dose blistr powdr for inhalation (Advair Diskus) blood sugar diagnostic (Prodigy No #400 ea 01/02/22 09/21/22 Rx Coding strips) semaglutide 1 mg/dose (4 mg/3 mL) 1 mg (0.75 mL) subcut Q7D #9 mL 03/04/22 11/12/22 Rx subcutaneous pen injector (Ozempic) umeclidinium 62.5 mcg/actuation 1 inh inhalation DAILY #3 Inhalers 07/15/22 11/12/22 Rx blister powder for inhalation (Incruse Ellipta) insulin NPH isoph U-100 human 100 30 unit (0.3 mL) subcut BID 90 07/20/22 11/12/22 Rx unit/mL (3 mL) subcutaneous pen days #54 Boxes (Humulin N NPH U-100 Insulin KwikPen) metformin 1,000 mg tablet 1,000 mg PO BID 90 days #180 tabs 07/20/22 11/12/22 Rx cholecalciferol (vitamin D3) 125 10,000 unit PO QAM #30 caps 09/21/22 11/12/22 History mcg (5,000 unit) capsule furosemide 40 mg tablet 40 mg .Route BID #180 tabs 10/27/22 11/12/22 Rx fish, borage, flaxseed oils-omega 0 cap PO UNKNOWN 11/12/22 11/12/22 History 3,6,9 cb #1 400 mg-400 mg-400 mg cap ([place] 3-6-9 Complex) Past Med/Surg History Medical History (Updated 11/12/22 @ 16:09 by Donta Robison MD) Albuminuria Asthma Chronic respiratory failure with hypoxia Chronic venous insufficiency COPD (chronic obstructive pulmonary disease) Diabetic nephropathy DM (diabetes mellitus), type 2, uncontrolled, with renal complications Hypertension LVH (left ventricular hypertrophy) Mitral regurgitation Mitral stenosis Obesity Type 2 diabetes mellitus Surgical History H/O: hysterectomy still has ovaries. secondary to DUB/prolapse S/P appendectomy S/P cholecystectomy S/P tonsillectomy S/P tubal ligation Status post surgery surgical Family History Mother Osteoporosis Hypertension Bladder cancer Father Heart disease H/O heart bypass surgery Son Dissecting AAA (abdominal aortic aneurysm) Denies family history of Ovarian cancer Prostate cancer Myocardial infarction Breast cancer Colorectal cancer Social History Smoking Status: Former smoker Age Started Using Tobacco: 9; packs per day: 0.5; Second Hand Exposure: Yes; Hx Alcohol Use: No Hx Substance Use: No Preferred Language: Polish Communication Ability: Effective Visual Impairment: No Limitations Hearing Ability: Normal Motor Vehicle Clerk Required: No Beliefs That Will Affect Care: None marital status: / marital status details: lost January 2020 Current Living Situation: Alone current occupational status: 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 Feels Safe at Home: Yes Childhood Exposure to Second-Hand Smoke: Yes Diet Comment: regular caffeine: Yes (coffee, 20 oz a day) during the past year weight has: remained stable Dental Care, Regularly: Yes Physical Activity Frequency: Does not Exercise Seatbelt Use: always Sunscreen Use: Yes Assistive Devices: None Review of Systems Review of Systems: All systems reviewed & are unremarkable except as noted in HPI & below Physical Exam Constitutional: WD/WN, vitals as above Eyes: + anicteric sclerae; normal pupil size ENMT: external ear and nose normal, oropharynx normal Respiratory: normal respiratory effort, lungs clear to auscultation Cardiovascular: Rate/Rhythm: + tachycardic and + irregularly irregular Heart Sounds: no murmur Extremities: normal capillary refill and + pedal edema (3+ b/l LE edema); no calf tenderness Gastrointestinal (Abdomen): normal bowel sounds, soft, nontender, no hepatosplenomegaly Musculoskeletal: no cyanosis or clubbing, extremities motor strength 5/5 Skin: no rashes, warm and dry Neurologic: moves all extremities and awake; not confused Psychiatric: A+Ox3, euthymic affect Results & Data Results & Data ([facility]) Vital Signs (Past 12 Hours) Vital Signs Temp Pulse Resp BP Pulse Ox O2 Del Method O2 Flow Rate 11/12/22 15:00 105 H 35 H 117/81 94 BiPAP 11/12/22 14:56 37.1 C 145 H 35 H 143/101 H 83 L Nasal Cannula 3 11/12/22 14:54 105 H 31 H 98 11/12/22 14:52 30 H 99 BiPAP FiO2 11/12/22 15:00 11/12/22 14:56 11/12/22 14:54 30 11/12/22 14:52 30 Laboratory Results Abnormal lab results 11/12/22 11/12/22 11/12/22 Range/Units 14:45 14:45 15:00 WBC 18.21 H (4.8-10.8) K/ul RBC 3.51 L (4.20-5.40) M/uL Hgb 10.0 L (12.0-16.0) g/dl POC Hgb (12.0-16.0) g/dl Hct 32.0 L (37.0-47.0) % POC Hct (37-47) % MCHC 31.3 L (32.0-36.0) g/dL RDW Std Deviation 56.3 H (36.4-46.3) fL RDW Coeff of Dee 17.0 H (11.5-14.5) % Plt Count 408 H (130-400) K/uL Neut # (Auto) 15.41 H (1.40-6.50) K/uL Winston # (Auto) 0.92 H (0.11-0.59) K/uL VBG pH (7.36-7.41) VBG pCO2 (38-50) mmHg POC Anion Gap (16-25) mmol/L POC BUN (7-18) mg/dl BUN 29 H (6-23) mg/dl Creatinine 1.51 H (0.6-1.2) mg/dl POC Creatinine (0.6-1.3) mg/dl Glucose 189 H (70-99(Fasting)) mg/dl POC Glucose (other) (70-99) mg/dl Troponin I High Sens 25.5 H (0-14) pg/ml B-Natriuretic Peptide 303 H (0-100) pg/ml Total Protein 8.5 H (6.0-8.3) gm/dl Globulin 4.5 H (2.5-4.0) gm/dl 11/12/22 11/12/22 Range/Units 15:00 15:14 WBC (4.8-10.8) K/ul RBC (4.20-5.40) M/uL Hgb (12.0-16.0) g/dl POC Hgb 10.5 L (12.0-16.0) g/dl Hct (37.0-47.0) % POC Hct 31 L (37-47) % MCHC (32.0-36.0) g/dL RDW Std Deviation (36.4-46.3) fL RDW Coeff of Dee (11.5-14.5) % Plt Count (130-400) K/uL Neut # (Auto) (1.40-6.50) K/uL Winston # (Auto) (0.11-0.59) K/uL VBG pH 7.35 L (7.36-7.41) VBG pCO2 59 H (38-50) mmHg POC Anion Gap 14.0 L (16-25) mmol/L POC BUN 28 H (7-18) mg/dl BUN (6-23) mg/dl Creatinine (0.6-1.2) mg/dl POC Creatinine 1.6 H (0.6-1.3) mg/dl Glucose (70-99(Fasting)) mg/dl POC Glucose (other) 175 H (70-99) mg/dl Troponin I High Sens (0-14) pg/ml B-Natriuretic Peptide (0-100) pg/ml Total Protein (6.0-8.3) gm/dl Globulin (2.5-4.0) gm/dl Diagnostic Findings XR chest 1V portable HISTORY: Dyspnea COMPARISON: Chest CT 06/29/2022. FINDINGS: No pneumothorax. There are small bilateral pleural effusions. The heart remains mildly enlarged. There is progressive interstitial/vascular thickening consistent with mild pulmonary edema. There are mitral annulus calcifications again noted. IMPRESSION: Interval progression of the pulmonary edema and small bilateral pleural effusions. Medications Administered ER medications given: Furosemide 40 mg IV Diltiazem 25 mg IV Levalbuterol/ipratropium nebulizer ECG Indication: chest pain Rate (beats per minute): 111 Rhythm: atrial fibrillation Findings: no acute ischemic change Comparison ECG Date: from Change: no significant change Code Status & VTE Plan Code Status DNR/DNI per patient wishes VTE Prophylaxis Plan VTE Prophylaxis will be ordered: Yes PG Care Time/CCT Total # of Minutes Spent Total Time Spent with Patient: Total time spent is greater than 50% in coordination of care (as documented) at patient's floor/unit and/or counseling patient: Coding Level of Care Code 97625 INT INP/OBS CARE 3/75MIN Diagnoses Acute and chronic respiratory failure with hypoxia J96.21 New onset atrial fibrillation I48.91 Acute on chronic heart failure with preserved ejection fraction I50.33 Hypertension I10 Hypertension type: essential hypertension Asthma-COPD overlap syndrome J44.9 Leukocytosis D72.829 Type 2 diabetes mellitus E11.9 Mitral stenosis I05.0 Morbid obesity E66.01 (1) Hypertension Hypertension type: essential hypertension Qualified Code(s): I10 - Essential (primary) hypertension
[2022-11-12] MEDS ORDERED: METOPROLOL TARTRATE 25 MG TAB PO STA (16:11)
[2022-11-12] MEDS ORDERED: STAT IV Infusion **Titration per Protocol STA (16:45)
[2022-11-12] MEDS ORDERED: Heparin IV Adult Wt-Based Standard WITH Bolus Protocol IV STA (16:45)
[2022-11-12] MEDS: dilTIAZem HCL 125 MG in DEXTROSE 5% 100 ML IV SCH (17:27)
[2022-11-12] MEDS ORDERED: HEPARIN SOD (PORCINE) 1000 UNIT/ML IV ONE (17:45)
[2022-11-12] MEDS: HEPARIN SODIUM/DEXTROSE 25,000 UNITS/500 ML BAG IV SCH (18:14)
[2022-11-12 18:17] LABS: Magnesium 1.9 mg/dl (1.7-2.4)
[2022-11-12 18:31] LABS: Influenza A virus by PCR Negative (Neg); Influenza B virus by PCR Negative (Neg); RSV by PCR Negative (Neg); SARS CoV2 RNA(COVID-19) Ceph NEGATIVE (Negative)
[2022-11-12 18:42] LABS: Appearance Urine Clear (Clear); Bacteria Urine Automated 2+ (Negative); Bilirubin Urine Negative (Negative); Blood Urine Trace (Negative); Color Urine Dark Yellow; Glucose Urine UA Negative (Negative); Ketones Urine Negative (Negative); Leukocyte Esterase Urine 1+ (Negative); Nitrite Urine Negative (Negative); Protein Urine 1+ (Negative); Specific Gravity Urine 1.012 (1.000-1.030); Urobilinogen Urine Negative (Negative)
[2022-11-12] MEDS ORDERED: GLUCAGON FOR INJ 1 MG VIAL SQ PRN (22:31)
[2022-11-12] MEDS ORDERED: GLUCOSE 40% GEL 15 GM TUBE PO PRN (22:31)
[2022-11-12] MEDS ORDERED: CARBOHYDRATES FOR HYPOGLYCEMIA PO PRN (22:31)
[2022-11-12] MEDS ORDERED: GLUCOSE 10 TAB/TUBE PO PRN (22:31)
[2022-11-12] MEDS ORDERED: ACETAMINOPHEN 325 MG TAB PO PRN (22:31)
[2022-11-12] MEDS: METOPROLOL TARTRATE 25 MG TAB PO SCH (23:14)
[2022-11-12] MEDS: INSULIN ASPART PER UNIT SC SCH (23:21)
[2022-11-12] MEDS: LANTUS PER UNIT CHARGE SQ SCH (23:21)
[2022-11-13 05:13] LABS: Basophils # (auto) 0.06 K/uL (0-0.2); Basophils % (auto) 0.5 %; Eosinophils # (auto) 0.37 K/uL (0-0.50); Eosinophils % (auto) 3.2 %; Hemoglobin 8.4 g/dl (12.0-16.0); Immature Granulocytes # (auto) 0.05 K/uL (0.01-0.20); Immature Granulocytes % (auto) 0.4 %; Lymphocytes # (auto) 1.53 K/uL (1.2-3.4); Lymphocytes % (auto) 13.1 %; Mean Corpuscular Hemoglobin 28.5 pg (25.0-34.0); Mean Corpuscular Hgb Conc 31.1 g/dL (32.0-36.0); Mean Corpuscular Volume 91.5 fL (80.0-100.0); Mean Platelet Volume 9.7 fL (9.4-12.4); Monocytes # (auto) 0.89 K/uL (0.11-0.59); Monocytes % (auto) 7.6 %; Neutrophils % (auto) 75.2 %; Platelet Count 247 K/uL (130-400); RDW Coefficient of Variation 16.9 % (11.5-14.5); RDW Standard Deviation 56.5 fL (36.4-46.3); Red Blood Count 2.95 M/uL (4.20-5.40)
[2022-11-13 05:38] LABS: Calcium 9.4 mg/dl (8.5-10.1); Potassium 3.4 mmol/L (3.5-5.1)
[2022-11-13 05:43] LABS: BUN Creatinine Ratio 18.3 (10-20); Creatinine Clr Calc Pharmacy 33.4 ml/min; Est GFR (African American) 37.6 ml/min; Est GFR (Non-African American) 32.5 ml/min; Partial Thromboplastin Ratio 1.7
[2022-11-13] MEDS: METOPROLOL TARTRATE 25 MG TAB PO SCH ×3 (06:25→17:29)
[2022-11-13 06:36] LABS: Partial Thromboplastin Time 45.8 Seconds (21.0-31.0)
[2022-11-13 07:06] LABS: Estimated Average Glucose 117 mg/dl; Hemoglobin A1C 5.7 % (4.5-5.6)
[2022-11-13] MEDS: DEXTROSE 50% 50 ML SYRINGE IV PRN ×2 (08:08→22:28)
[2022-11-13] MEDS: INSULIN ASPART PER UNIT SC SCH ×4 (08:28→21:34)
[2022-11-13] MEDS: UMECLIDINIUM BROMIDE 62.5MCG/BLISTER 7 PUFFS/INHALER INH SCH ×2 (08:29)
--- NOTE | 2022-11-13 08:32 | Electrocardiogram Report ---
Test Reason : Blood Pressure : / mmHG Vent. Rate : 111 BPM Atrial Rate : 083 BPM P-R Int : 000 ms QRS Dur : 084 ms QT Int : 326 ms P-R-T Axes : 000 042 073 degrees QTc Int : 443 ms Atrial fibrillation with rapid ventricular response with premature ventricular or aberrantly conducte d complexes Abnormal ECG When compared with ECG of 12-NOV-2022 14:38, No significant change was found Confirmed by Brad Jackson ([id number]) on 11/13/2022 8:31:57 AM Referred By: REFERRED SELF Confirmed By:Brad Jackson
--- NOTE | 2022-11-13 08:33 | Electrocardiogram Report ---
Test Reason : Blood Pressure : / mmHG Vent. Rate : 133 BPM Atrial Rate : 113 BPM P-R Int : 000 ms QRS Dur : 080 ms QT Int : 292 ms P-R-T Axes : 000 060 080 degrees QTc Int : 434 ms Poor data quality, interpretation may be adversely affected Atrial fibrillation with rapid ventricular response Abnormal ECG When compared with ECG of 21-SEP-2019 14:42, HR has decreased by 25 bpm Atrial fibrillation has replaced Sinus rhythm Confirmed by Brad Jackson ([id number]) on 11/13/2022 8:32:47 AM Referred By: Confirmed By:Brad Jackson
[2022-11-13] MEDS: LANTUS PER UNIT CHARGE SQ SCH ×2 (09:28→21:31)
[2022-11-13] MEDS: HEPARIN SODIUM/DEXTROSE 25,000 UNITS/500 ML BAG IV SCH (13:30)
[2022-11-13 13:43] LABS: Partial Thromboplastin Ratio 1.4; Partial Thromboplastin Time 39.6 Seconds (21.0-31.0)
--- NOTE | 2022-11-13 14:09 | Cardiology Consultation ---
Date of Consultation November 13, 2022 Assessment & Plan (1) Acute on chronic heart failure with preserved ejection fraction: -suspect this is related to her rapid atrial fibrillation in the face mitral stenosis. -improving with intravenous diuretics. -quick look at echocardiogram this morning noted normal systolic function. (2) New onset atrial fibrillation: -likely developed 1 month ago. -rate better controlled on intravenous diltiazem drip. -would try to convert to oral beta blockers. -would start a DOAC in favor of heparin. (3) Mitral stenosis: -mild to moderate mitral stenosis noted previously. -repeat echocardiogram pending. History of Present Illness Attending Physician: Som Baldwin History of Present Illness Mrs. Kumar is a 77-year-old female admitted yesterday with rapid atrial fibrillation and decompensated CHF. This consultation was ordered to assist of patient all known to me from the outpatient setting. The patient was in her usual state of health until approximately 1 month prior to presentation. She began to note significant exertional dyspnea, PND, orthopnea, and progressive lower extremity edema. She also noted intermittent and sustained palpitations over the same timeframe. At no time did she experience chest discomfort. She further denies syncope, presyncope, and claudication. The patient carries a history of mild to moderate mitral stenosis. Her most recent echocardiogram was performed in November 2021. Currently, patient is resting comfortably without complaints. Past medical and surgical history 1. Hypertension 2.Gjxg-gj-chxnopei mitral stenosis 3. Asthma/COPD 3. Diabetes mellitus 4. Cholecystectomy 5. Appendectomy 6. Four spontaneous vaginal deliveries 7. Tubal ligation 8. 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 Father at 83 after valve replacement surgery. He of coronary artery bypass surgery performed. Allergies Allergy/AdvReac Type Severity Reaction Status Date / Time latex Allergy Intermediate Rash Verified 11/12/22 16:49 cinnamon AdvReac Intermediate Hematuria Verified 11/12/22 16:49 lisinopril AdvReac Intermediate Cough Verified 11/12/22 16:49 losartan AdvReac Intermediate Skin Verified 11/12/22 16:49 crawling sensation Home Medications Medication Instructions Recorded Confirmed Type ascorbic acid (vitamin C) 1,000 mg 1,000 mg PO BID 05/22/19 11/12/22 History tablet aspirin 325 mg tablet 325 mg PO HS 05/22/19 11/12/22 History lancets 28 gauge (Prodigy Lancets) #25 ea 05/22/19 09/21/22 History multivitamin (Daily Multi-Vitamin 1 tab PO QAM 05/22/19 11/12/22 History tablet) vitamin B complex 1 tab PO QAM 09/21/19 11/12/22 History vitamin E 670 mg (1,000 unit) 1,000 unit PO QAM 09/21/19 11/12/22 History capsule Portable Oxygen #1 ea 12/05/20 09/21/22 Rx albuterol sulfate 90 mcg/actuation 2 puff inhalation Q6H PRN 11/28/21 11/12/22 Rx aerosol inhaler Shortness Of Breath Or Wheezing #18 grams fluticasone 250 mcg-salmeterol 50 1 inh inhalation Q12H #180 ea 11/28/21 11/12/22 Rx mcg/dose blistr powdr for inhalation (Advair Diskus) blood sugar diagnostic (Prodigy No #400 ea 01/02/22 09/21/22 Rx Coding strips) semaglutide 1 mg/dose (4 mg/3 mL) 1 mg (0.75 mL) subcut Q7D #9 mL 03/04/22 11/12/22 Rx subcutaneous pen injector (Ozempic) umeclidinium 62.5 mcg/actuation 1 inh inhalation DAILY #3 Inhalers 07/15/22 Rx blister powder for inhalation (Incruse Ellipta) insulin NPH isoph U-100 human 100 30 unit (0.3 mL) subcut BID 90 07/20/22 11/12/22 Rx unit/mL (3 mL) subcutaneous pen days #54 Boxes (Humulin N NPH U-100 Insulin KwikPen) metformin 1,000 mg tablet 1,000 mg PO BID 90 days #180 tabs 07/20/22 11/12/22 Rx cholecalciferol (vitamin D3) 125 10,000 unit PO QAM #30 caps 09/21/22 11/12/22 History mcg (5,000 unit) capsule furosemide 40 mg tablet 40 mg .Route BID #180 tabs 10/27/22 11/12/22 Rx fish, borage, flaxseed oils-omega 0 cap PO UNKNOWN 11/12/22 11/12/22 History 3,6,9 cb #1 400 mg-400 mg-400 mg cap ([place] 3-6-9 Complex) Patient History Medical History Albuminuria Asthma Chronic respiratory failure with hypoxia Chronic venous insufficiency COPD (chronic obstructive pulmonary disease) Diabetic nephropathy DM (diabetes mellitus), type 2, uncontrolled, with renal complications Hypertension LVH (left ventricular hypertrophy) Mitral regurgitation Mitral stenosis Obesity Type 2 diabetes mellitus Surgical History H/O: hysterectomy still has ovaries. secondary to DUB/prolapse S/P appendectomy S/P cholecystectomy S/P tonsillectomy S/P tubal ligation Status post surgery surgical Family History Mother Osteoporosis Hypertension Bladder cancer Father Heart disease H/O heart bypass surgery Son Dissecting AAA (abdominal aortic aneurysm) Denies family history of Ovarian cancer Prostate cancer Myocardial infarction Breast cancer Colorectal cancer Social History Smoking Status: Former smoker Age Started Using Tobacco: 9; packs per day: 0.5; Second Hand Exposure: No; Do You Dip or Chew Tobacco: No; Hx Alcohol Use: No Hx Substance Use: No Preferred Language: French Communication Ability: Effective Visual Impairment: No Limitations Hearing Ability: Normal Ordnance Officer Required: No Beliefs That Will Affect Care: None marital status: / marital status details: lost January 2020 Current Living Situation: Alone current occupational status: retired 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 HEENT exam is negative. Neck is supple with full carotid upstrokes. No carotid bruits. No JVD. There is no thyromegaly. Cardiovascular exam reveals an irregular irregular rhythm with distant heart sounds. No obvious murmurs. Lungs are clear without rales, rhonchi or wheezes. Abdomen is obese without bruits. Extremities reveal intact radial artery pulses bilaterally. There is 1+ pretibial edema. Results & Data ([facility]) Vital Signs (Past 12 Hours) Vital Signs Temp Pulse Resp BP Pulse Ox O2 Del Method O2 Flow Rate 11/13/22 12:31 36.9 C 85 18 155/76 H 98 Nasal Cannula 3 11/13/22 08:15 36.8 C 90 18 130/66 98 Nasal Cannula 2 11/13/22 03:36 36.9 C 88 22 107/71 99 Nasal Cannula 3.0 PG Care Time/CCT Total # of Minutes Spent Total Time Spent with Patient: Total time spent is greater than 50% in coordination of care (as documented) at patient's floor/unit and/or counseling patient: Coding Level of Care Code 48276 INT INP/OBS CARE 3/75MIN Diagnoses Acute on chronic heart failure with preserved ejection fraction I50.33 New onset atrial fibrillation I48.91 Mitral stenosis I05.0
[2022-11-13] MEDS: dilTIAZem HCL 125 MG in DEXTROSE 5% 100 ML IV SCH (15:44)
--- NOTE | 2022-11-13 16:40 | XCELERA ---
[id number]
[2022-11-13 21:05] LABS: Partial Thromboplastin Ratio 1.6
[2022-11-13] MEDS ORDERED: POTASSIUM CHLORIDE CRTAB 20 MEQ TABCR PO STA (21:43)
--- NOTE | 2022-11-13 21:48 | Communication Note ---
Date of Service: November 13, 2022 Received a message from nursing in regards to Lasix therapy and patient questioning as to why she is not getting her home Lasix. See that she is here f or CHF exacerbation and requiring 4.5 L nasal cannula for oxygenation. Reviewed labs and noticed a mild CHANTELLE but has been stable since admission. Suspect this is due to fluid overload. No provider note for today as of yet so do not see why Lasix would not be acceptable to give at this time. Restarted Lasix 40 mg twice daily via IV. Gave with potassium as her potassium was 3.4 this morning. Recheck in a.m.
--- NOTE | 2022-11-13 21:49 | Hospitalist Progress Note ---
Date of Service November 13, 2022 Assessment & Plan (1) Acute and chronic respiratory failure with hypoxia: Plan: Secondary to pulmonary edema as below Can d/c BiPAP Aim O2 sats > 90% Baseline O2 requirement 2LPM O2 at rest and 3LPM O2 on exertion will continue furosemide BID will closely monitor her renal function. (2) New onset atrial fibrillation: Plan: Given symptoms ongoing for the last month suspect she has been atrial fibrillation with rapid rate for the majority of this time. Initial improved heart rate to low 100s after diltiazem 25mg IV given in ER but now back to 130 bpm - will start on diltiazem IV drip with uptitration starting at 5mg/hr Metoprolol 25mg PO now and q6h with hold parameters TTE - patient reports having this at her outpatient office today therefore will await report Repeat TSH [id number] - 6, HAS-BLED 2 - moderate risk for major bleed. Recommend starting anticoagulation at this time with intravenous heparin. (3) Acute on chronic heart failure with preserved ejection fraction: Plan: Suspect somewhat rate related heart failure Repeat TTE as above Lasix 40 mg IV given in the ER (usual dose 40 mg p.o. twice daily), will continue 40 mg IV twice daily Strict I's and O's Daily weights Low-sodium diet (4) Hypertension: Plan: Continue Lasix/diltiazem/metoprolol as above. Routine monitoring of blood pressure while adjusting these medications. (5) Asthma-COPD overlap syndrome: Plan: Continue Advair Diskus or hospital formulary equivalent Continue Incse Ellipta [facility] (6) Leukocytosis: Plan: Appears to be an acute on chronic process. She initially had an unremarkable peripheral smear as previous work-up in June. Mostly mild leukocytosis is just her normal versus ongoing mild inflammatory process - no previous ESR or CRP in [facility] Current worsening of her leukocytosis with neutrophilia suspect a stress reaction and will trend with normal immature granulocytes # No infection signs or symptoms. (7) Type 2 diabetes mellitus: Plan: Hemoglobin A1c 6.1 in September Switch insulin NPH for Lantus 30 units twice daily NovoLog: --Goal BSG Range: Low 110 mg/dL, High 140 mg/dL --Correction Factor: 15 mg/dL/unit --Carbohydrate ratio = 4 g/unit --BSGs ACHS if eating, q6h if npo (8) Mitral stenosis: Plan: Will reevaluate on repeat echo (9) Morbid obesity: Plan VTE Prophylaxis - heparin IV as above Diet - Low Na, heart healthy, T2DM Disposition - admit to PCU Admission and Anticipated Discharge Date Admission Date: November 12, 2022 Subjective 77 yo female reports no new symptoms. Patient reports breathing better. Review of Systems Review of Systems: All systems reviewed & are unremarkable except as noted in HPI & below Physical Exam Physical Exam: Constitutional: WD/WN, vitals as above Eyes: + anicteric sclerae; normal pupil size ENMT: external ear and nose normal, oropharynx normal Respiratory: normal respiratory effort, lungs clear to auscultation Cardiovascular: Rate/Rhythm: + tachycardic and + irregularly irregular Heart Sounds: no murmur Extremities: normal capillary refill and + pedal edema ); no calf tenderness Gastrointestinal (Abdomen): normal bowel sounds, soft, nontender, no hepatosplenomegaly Musculoskeletal: no cyanosis or clubbing, extremities motor strength 5/5 Skin: no rashes, warm and dry Neurologic: moves all extremities and awake; not confused Psychiatric: A+Ox3, euthymic affect Results & Data Results & Data ([facility]) Vital Signs (Past 12 Hours) Vital Signs Temp Pulse Pulse Resp BP Pulse Ox O2 Del Method 11/13/22 21:30 Nasal Cannula 11/13/22 19:51 36.8 C 87 16 112/57 L 96 Nasal Cannula 11/13/22 17:27 94 H 139/78 11/13/22 15:39 36.8 C 83 19 119/59 L 98 Nasal Cannula 11/13/22 12:31 36.9 C 85 18 155/76 H 98 Nasal Cannula O2 Flow Rate 11/13/22 21:30 3 11/13/22 19:51 4.5 11/13/22 17:27 11/13/22 15:39 3 11/13/22 12:31 3 PG Care Time/CCT Total # of Minutes Spent Total Time Spent with Patient: Total time spent is greater than 50% in coordination of care (as documented) at patient's floor/unit and/or counseling patient: Coding Level of Care Code 49945 SUB INP/OBS CARE 2/35MIN Diagnoses Acute and chronic respiratory failure with hypoxia J96.21 New onset atrial fibrillation I48.91 Acute on chronic heart failure with preserved ejection fraction I50.33 Hypertension I10 Hypertension type: essential hypertension Asthma-COPD overlap syndrome J44.9 Leukocytosis D72.829 Type 2 diabetes mellitus E11.9 Mitral stenosis I05.0 Morbid obesity E66.01 (1) Hypertension Hypertension type: essential hypertension Qualified Code(s): I10 - Essential (primary) hypertension
[2022-11-13] MEDS: FUROSEMIDE 40 MG/4 ML VIAL IV SCH (22:17)
[2022-11-14] MEDS: METOPROLOL TARTRATE 25 MG TAB PO SCH ×4 (00:07→17:58)
[2022-11-14 03:29] LABS: Hematocrit (blood only) 25.9 % (37.0-47.0); Hemoglobin 8.1 g/dl (12.0-16.0); Mean Corpuscular Hemoglobin 28.5 pg (25.0-34.0); Mean Corpuscular Hgb Conc 31.3 g/dL (32.0-36.0); Mean Corpuscular Volume 91.2 fL (80.0-100.0); Mean Platelet Volume 10.2 fL (9.4-12.4); Platelet Count 242 K/uL (130-400); RDW Coefficient of Variation 16.7 % (11.5-14.5); RDW Standard Deviation 55.3 fL (36.4-46.3); Red Blood Count 2.84 M/uL (4.20-5.40); White Blood Count 9.51 K/ul (4.8-10.8)
[2022-11-14 03:46] LABS: Potassium 3.9 mmol/L (3.5-5.1)
[2022-11-14 03:51] LABS: BUN Creatinine Ratio 16.5 (10-20); Est GFR (African American) 31.8 ml/min; Est GFR (Non-African American) 27.4 ml/min
[2022-11-14 03:58] LABS: Partial Thromboplastin Ratio 1.9
[2022-11-14 04:15] LABS: Partial Thromboplastin Time 51.5 Seconds (21.0-31.0)
[2022-11-14] MEDS: HEPARIN SODIUM/DEXTROSE 25,000 UNITS/500 ML BAG IV SCH ×2 (07:33→08:16)
[2022-11-14] MEDS: FLUTICASONE/VILANTEROL 100/25MCG 14 PUFFS/INHALER INH SCH (09:27)
[2022-11-14] MEDS: FUROSEMIDE 40 MG/4 ML VIAL IV SCH ×2 (09:28→17:58)
[2022-11-14] MEDS: UMECLIDINIUM BROMIDE 62.5MCG/BLISTER 7 PUFFS/INHALER INH SCH (09:28)
[2022-11-14] MEDS: INSULIN ASPART PER UNIT SC SCH ×4 (09:29→20:39)
[2022-11-14] MEDS: LANTUS PER UNIT CHARGE SQ SCH ×2 (09:29→20:41)
[2022-11-14] MEDS ORDERED: HEPARIN DRIP~STOP ORDER ONE (11:45)
[2022-11-14] MEDS: APIXABAN 5 MG TABLET PO SCH ×2 (12:50→20:42)
[2022-11-14] MEDS: dilTIAZem HCL 125 MG in DEXTROSE 5% 100 ML IV SCH (18:39)
--- NOTE | 2022-11-14 22:58 | Hospitalist Progress Note ---
Date of Service November 14, 2022 Assessment & Plan (1) Acute and chronic respiratory failure with hypoxia: Plan: Secondary to pulmonary edema as below Can d/c BiPAP Aim O2 sats > 90% Baseline O2 requirement 2LPM O2 at rest and 3LPM O2 on exertion will continue furosemide BID will place robert wrap on legs to help decrease edema and improve venous return as creatinine was rising on 11/14 will closely monitor her renal function. (2) New onset atrial fibrillation: Plan: Given symptoms ongoing for the last month suspect she has been atrial fibrillation with rapid rate for the majority of this time. Initial improved heart rate to low 100s after diltiazem 25mg IV given in ER but now back to 130 bpm - will start on diltiazem IV drip with uptitration starting at 5mg/hr Metoprolol 25mg PO now and q6h with hold parameters TTE - completed [id number] - 6, HAS-BLED 2 - moderate risk for major bleed. Transitioned heparin to Eliquis increased beta kristin will stop IV diltiazem (3) Acute on chronic heart failure with preserved ejection fraction: Plan: Suspect somewhat rate related heart failure Repeat TTE as above Lasix 40 mg IV given in the ER (usual dose 40 mg p.o. twice daily), will continue 40 mg IV twice daily Strict I's and O's Daily weights Low-sodium diet (4) Hypertension: Plan: Continue Lasix/diltiazem/metoprolol as above. Routine monitoring of blood pressure while adjusting these medications. (5) Asthma-COPD overlap syndrome: Plan: Continue Advair Diskus or hospital formulary equivalent Continue [facility] (6) Leukocytosis: Plan: Appears to be an acute on chronic process. She initially had an unremarkable peripheral smear as previous work-up in June. Mostly mild leukocytosis is just her normal versus ongoing mild inflammatory process - no previous ESR or CRP in [facility] Current worsening of her leukocytosis with neutrophilia suspect a stress reaction and will trend with normal immature granulocytes # No infection signs or symptoms. (7) Type 2 diabetes mellitus: Plan: Hemoglobin A1c 6.1 in September Switch insulin NPH for Lantus 30 units twice daily NovoLog: --Goal BSG Range: Low 110 mg/dL, High 140 mg/dL --Correction Factor: 15 mg/dL/unit --Carbohydrate ratio = 4 g/unit --BSGs ACHS if eating, q6h if npo (8) Mitral stenosis: Plan: Will reevaluate on repeat echo (9) Morbid obesity: Plan VTE Prophylaxis - heparin IV as above Diet - Low Na, heart healthy, T2DM Disposition - admit to PCU Admission and Anticipated Discharge Date Admission Date: November 12, 2022 Subjective Reports non new symptoms. Gradually improving. Review of Systems Review of Systems: All systems reviewed & are unremarkable except as noted in HPI & below Physical Exam Physical Exam: Constitutional: WD/WN, vitals as above Eyes: + anicteric sclerae; normal pupil size ENMT: external ear and nose normal, oropharynx normal Respiratory: normal respiratory effort, lungs clear to auscultation Cardiovascular: Rate/Rhythm: normal rate and + irregularly irregular Heart Sounds: no murmur Extremities: normal capillary refill and + pedal edema ); no calf tenderness Gastrointestinal (Abdomen): normal bowel sounds, soft, nontender, no hepatosplenomegaly Musculoskeletal: no cyanosis or clubbing, extremities motor strength 5/5 Skin: no rashes, warm and dry Neurologic: moves all extremities and awake; not confused Psychiatric: A+Ox3, euthymic affect Results & Data Results & Data ([facility]) Vital Signs (Past 12 Hours) Vital Signs Temp Pulse Pulse Resp BP Pulse Ox O2 Del Method 11/14/22 20:44 36.7 C 87 20 117/73 98 Nasal Cannula 11/14/22 20:55 Nasal Cannula 11/14/22 16:34 36.5 C 79 17 118/74 100 Nasal Cannula 11/14/22 15:03 90 11/14/22 15:03 Nasal Cannula 11/14/22 12:11 36.5 C 84 18 128/76 97 Nasal Cannula O2 Flow Rate 11/14/22 20:44 3.0 11/14/22 20:55 3 11/14/22 16:34 3.5 11/14/22 15:03 11/14/22 15:03 3 11/14/22 12:11 4 PG Care Time/CCT Total # of Minutes Spent Total Time Spent with Patient: Total time spent is greater than 50% in coordination of care (as documented) at patient's floor/unit and/or counseling patient: Coding Level of Care Code 01164 SUB INP/OBS CARE 3/50MIN Diagnoses Acute and chronic respiratory failure with hypoxia J96.21 New onset atrial fibrillation I48.91 Acute on chronic heart failure with preserved ejection fraction I50.33 Hypertension I10 Hypertension type: essential hypertension Asthma-COPD overlap syndrome J44.9 Leukocytosis D72.829 Type 2 diabetes mellitus E11.9 Mitral stenosis I05.0 Morbid obesity E66.01 (1) Hypertension Hypertension type: essential hypertension Qualified Code(s): I10 - Essential (primary) hypertension
[2022-11-15] MEDS: METOPROLOL TARTRATE 25 MG TAB PO SCH ×5 (00:59→23:39)
[2022-11-15 07:10] LABS: Hematocrit (blood only) 25.9 % (37.0-47.0); Hemoglobin 8.2 g/dl (12.0-16.0); Mean Corpuscular Hemoglobin 28.6 pg (25.0-34.0); Mean Corpuscular Hgb Conc 31.7 g/dL (32.0-36.0); Mean Corpuscular Volume 90.2 fL (80.0-100.0); Mean Platelet Volume 10.3 fL (9.4-12.4); Platelet Count 255 K/uL (130-400); RDW Coefficient of Variation 16.6 % (11.5-14.5); RDW Standard Deviation 54.3 fL (36.4-46.3); Red Blood Count 2.87 M/uL (4.20-5.40); White Blood Count 8.11 K/ul (4.8-10.8)
[2022-11-15 07:34] LABS: BUN Creatinine Ratio 20.6 (10-20); Creatinine Clr Calc Pharmacy 31.9 ml/min; Est GFR (African American) 35.7 ml/min; Est GFR (Non-African American) 30.8 ml/min; Potassium 3.8 mmol/L (3.5-5.1)
[2022-11-15] MEDS: FLUTICASONE/VILANTEROL 100/25MCG 14 PUFFS/INHALER INH SCH (08:51)
[2022-11-15] MEDS: APIXABAN 5 MG TABLET PO SCH ×2 (08:51→21:07)
[2022-11-15] MEDS: FUROSEMIDE 40 MG/4 ML VIAL IV SCH ×2 (08:51→18:11)
[2022-11-15] MEDS: UMECLIDINIUM BROMIDE 62.5MCG/BLISTER 7 PUFFS/INHALER INH SCH (08:52)
[2022-11-15] MEDS: INSULIN ASPART PER UNIT SC SCH ×4 (08:53→20:58)
[2022-11-15] MEDS: LANTUS PER UNIT CHARGE SQ SCH ×2 (08:54→21:08)
--- NOTE | 2022-11-15 09:25 | XRay Report ---
XR chest 1V portable CLINICAL HISTORY: CHF COMPARISON STUDY: Chest CT June 29, 2022. Chest radiograph November 12, 2022. FINDINGS: There is no pneumothorax. Small bilateral pleural effusions slightly increased. Slight impr ovement in pulmonary edema. Cardiomediastinal silhouette is stable. There is mitral annular calcifica tion. IMPRESSION: 1. Interstitial pulmonary edema, slightly improved since prior exam. 2. Mild increase in small bilateral pleural effusions and associated bibasilar opacities. ACT 112: Negative or not required by law. Electronically signed by: Jb Carpio M.D. 11/15/2022 9:24 AM
[2022-11-15 10:43] LABS: Ferritin 71.4 ng/ml (8-388)
--- NOTE | 2022-11-15 12:31 | Hospitalist Progress Note ---
Date of Service November 15, 2022 Assessment & Plan (1) Acute and chronic respiratory failure with hypoxia: Plan: Secondary to pulmonary edema as below. Aim O2 sats > 90% Baseline O2 requirement 2LPM O2 at rest and 3LPM O2 on exertion will continue furosemide BID. IV dosage uptitrated today, November 15. I suspect her home dose will need to be 80 mg twice daily at discharge will closely monitor her renal function. (2) New onset atrial fibrillation: Plan: Controlled rate. Continue metoprolol. She is now on Eliquis. (3) Acute on chronic heart failure with preserved ejection fraction: Plan: Continue Lasix diuresis. Dosage uptitrated today, November 15. I suspect her home dose will have to be 80 mg twice daily at discharge. Continue to monitor intake and output. Serial chest x-ray. (4) Hypertension: Plan: Controlled with current medication regimen. (5) Asthma-COPD overlap syndrome: Plan: Continue Advair Diskus or hospital formulary equivalent Continue Incse Ellip or [facility] (6) Leukocytosis: Plan: Appears to be an acute on chronic process. She initially had an unremarkable peripheral smear as previous work-up in June. No active infection. Afebrile. Serial labs. No infection signs or symptoms. (7) Type 2 diabetes mellitus: Plan: Hemoglobin A1c 6.1 in September. Basal insulin therapy. ADA diet. Sliding scale coverage as needed (8) Mitral stenosis: Plan: Mild mitral stenosis and mild mitral regurgitation seen on echo. No intervention necessary at this time. Pursue rate control with new atrial fibrillation (9) Morbid obesity: Plan: BMI greater than 40. Recommend weight loss Plan VTE Prophylaxis -now on Eliquis. Disposition -eventual discharge to home. Hopefully within the next day or 2 Admission and Anticipated Discharge Date Admission Date: November 12, 2022 Subjective Alert and oriented. No acute distress. Chest x-ray today, November 15, looks better. Iron profile is pending. Continue intravenous Lasix diuresis. I suspect when she is discharged her home dose of Lasix will need to be increased to 80 mg twice daily. Review of Systems Review of Systems: Constitutional-no fever or chills ENT-no blurred vision, no double vision, no epistaxis, no sore throat Respiratory-no cough, no wheezing, no shortness of breath at rest Cardiac-no palpitations, no chest pain, no syncope GI-no nausea, vomiting, diarrhea, melena, hematochezia -no urinary retention, no urinary incontinence, no dysuria, no hematuria Musculoskeletal-no joint pain, no muscle tenderness. Chronic bilateral lower extremity edema has improved Skin-no bruising, no rashes, no pruritus Neuro-no isolated weakness, no paresthesia, no weakness Psych-no depression, no anxiety Physical Exam Physical Exam: General-alert and oriented x3, no fevers, no chills HEENT-head atraumatic and normocephalic, pupils equal and reactive to light, extraocular muscles intact Neck-no lymphadenopathy or thyromegaly, trachea midline Chest-bibasilar inspiratory rales. No wheezing Cardiac-irregular rhythm. Controlled rate. Normal S1 and S2 Abdomen-normal bowel sounds, nontender, no hepatosplenomegaly Extremities-chronic bilateral lower extremity edema has improved with diuresis. She has underlying chronic venous insufficiency and chronic edema Neuro-cranial nerves II through XII intact, motor and sensory function within normal limits, strength symmetrical , no focal deficits Psych-normal affect, normal mood Results & Data Results & Data ([facility]) Vital Signs (Past 12 Hours) Vital Signs Temp Pulse Pulse Resp BP Pulse Ox O2 Del Method 11/15/22 11:50 36.6 C 96 H 18 118/78 97 Nasal Cannula 11/15/22 08:16 36.7 C 78 18 106/71 100 Nasal Cannula 11/15/22 03:42 36.8 C 79 18 116/68 99 Nasal Cannula O2 Flow Rate 11/15/22 11:50 2 11/15/22 08:16 3 11/15/22 03:42 3.0 Laboratory Results 11/15/22 06:26 11/15/22 06:26 PG Care Time/CCT Total # of Minutes Spent Total Time Spent with Patient: Total time spent is greater than 50% in coordination of care (as documented) at patient's floor/unit and/or counseling patient: Coding Level of Care Code 27955 SUB INP/OBS CARE 3/50MIN Diagnoses Acute and chronic respiratory failure with hypoxia J96.21 New onset atrial fibrillation I48.91 Acute on chronic heart failure with preserved ejection fraction I50.33 Hypertension I10 Hypertension type: essential hypertension Asthma-COPD overlap syndrome J44.9 Leukocytosis D72.829 Type 2 diabetes mellitus E11.9 Mitral stenosis I05.0 Morbid obesity E66.01 (1) Hypertension Hypertension type: essential hypertension Qualified Code(s): I10 - Essential (primary) hypertension
[2022-11-16] MEDS: METOPROLOL TARTRATE 25 MG TAB PO SCH ×4 (06:18→23:26)
[2022-11-16 06:30] LABS: Basophils # (auto) 0.07 K/uL (0-0.2); Basophils % (auto) 0.7 %; Eosinophils # (auto) 0.58 K/uL (0-0.50); Eosinophils % (auto) 6.2 %; Hematocrit (blood only) 27.5 % (37.0-47.0); Hemoglobin 8.7 g/dl (12.0-16.0); Immature Granulocytes # (auto) 0.03 K/uL (0.01-0.20); Immature Granulocytes % (auto) 0.3 %; Lymphocytes # (auto) 0.85 K/uL (1.2-3.4); Lymphocytes % (auto) 9.1 %; Mean Corpuscular Hemoglobin 28.5 pg (25.0-34.0); Mean Corpuscular Hgb Conc 31.6 g/dL (32.0-36.0); Mean Corpuscular Volume 90.2 fL (80.0-100.0); Mean Platelet Volume 9.8 fL (9.4-12.4); Monocytes # (auto) 0.73 K/uL (0.11-0.59); Monocytes % (auto) 7.8 %; Neutrophils # (auto) 7.08 K/uL (1.40-6.50); Neutrophils % (auto) 75.9 %; Platelet Count 270 K/uL (130-400); RDW Coefficient of Variation 16.4 % (11.5-14.5); Red Blood Count 3.05 M/uL (4.20-5.40); White Blood Count 9.34 K/ul (4.8-10.8)
[2022-11-16 06:44] LABS: BUN Creatinine Ratio 20.5 (10-20); Calcium 9.2 mg/dl (8.5-10.1); Creatinine Clr Calc Pharmacy 30.4 ml/min; Est GFR (African American) 32.9 ml/min; Est GFR (Non-African American) 28.4 ml/min; Potassium 3.9 mmol/L (3.5-5.1)
[2022-11-16] MEDS: INSULIN ASPART PER UNIT SC SCH ×4 (08:32→20:06)
[2022-11-16] MEDS: LANTUS PER UNIT CHARGE SQ SCH (08:33)
[2022-11-16] MEDS: FUROSEMIDE 40 MG/4 ML VIAL IV SCH (08:36)
[2022-11-16] MEDS: FLUTICASONE/VILANTEROL 100/25MCG 14 PUFFS/INHALER INH SCH (08:37)
[2022-11-16] MEDS: APIXABAN 5 MG TABLET PO SCH ×2 (08:37→19:58)
[2022-11-16] MEDS: UMECLIDINIUM BROMIDE 62.5MCG/BLISTER 7 PUFFS/INHALER INH SCH (08:37)
[2022-11-16] MEDS ORDERED: SPIRONOLACTONE 12.5 MG TAB PO ONE (12:33)
--- NOTE | 2022-11-16 13:59 | Cardiology Progress Note ---
Date of Service November 16, 2022 Assessment & Plan (1) Acute on chronic heart failure with preserved ejection fraction: Plan: -suspect this is related to her rapid atrial fibrillation in the face of mitral stenosis. -improving with intravenous diuretics. -echocardiogram notes normal systolic function. (2) New onset atrial fibrillation: Plan: -likely developed 1 month prior to presentation. -rate now controlled on metoprolol tartrate. -would try to convert to oral beta blockers. -tolerating Eliquis. (3) Mitral stenosis: Plan: -mild mitral stenosis on current echocardiogram. Admission and Anticipated Discharge Date Admission Date: November 12, 2022 Subjective The patient is resting comfortably in the bedside chair without complaints of chest pain or palpitations. Her breathing is improving. Physical Exam Physical Exam: In general this is an obese white female in no acute distress. HEENT exam is negative. Neck is supple with full carotid upstrokes. No carotid bruits. No JVD. There is no thyromegaly. Cardiovascular exam reveals an irregular irregular rhythm with distant heart sounds. No obvious murmurs. Lungs are clear without rales, rhonchi or wheezes. Abdomen is obese without bruits. Extremities reveal intact radial artery pulses bilaterally. There is 1+ pretibial edema. Results & Data ([facility]) Vital Signs (Past 12 Hours) Vital Signs Temp Pulse Pulse Resp BP Pulse Ox O2 Del Method 11/16/22 12:03 36.7 C 83 19 121/72 96 Nasal Cannula 11/16/22 07:52 36.8 C 83 19 117/57 L 100 Nasal Cannula 11/16/22 06:18 87 141/85 H 11/16/22 03:56 36.9 C 85 18 124/73 95 Nasal Cannula O2 Flow Rate 11/16/22 12:03 2 11/16/22 07:52 2 11/16/22 06:18 11/16/22 03:56 2 Diagnostic Findings property assessment monitor notes atrial fibrillation with a ventricular response of 80-90 beats per minute. PG Care Time/CCT Total # of Minutes Spent Total Time Spent with Patient: Total time spent is greater than 50% in coordination of care (as documented) at patient's floor/unit and/or counseling patient: Coding Level of Care Code 94200 SUB INP/OBS CARE 3/50MIN Diagnoses Acute on chronic heart failure with preserved ejection fraction I50.33 New onset atrial fibrillation I48.91 Mitral stenosis I05.0
--- NOTE | 2022-11-16 17:51 | Hospitalist Progress Note ---
Date of Service November 16, 2022 Assessment & Plan (1) Acute and chronic respiratory failure with hypoxia: Plan: Secondary to pulmonary edema as below. Aim O2 sats > 90% Baseline O2 requirement 2LPM O2 at rest and 3LPM O2 on exertion will continue furosemide BID. IV dosage uptitrated today, November 15. cut back her furosemide to 60 mg IV once a day and added spironolactone. will closely monitor her renal function. (2) New onset atrial fibrillation: Plan: Controlled rate. Continue metoprolol. She is now on Eliquis. (3) Acute on chronic heart failure with preserved ejection fraction: Plan: Continue Lasix diuresis. Dosage uptitrated today, November 15. I suspect her home dose will have to be 80 mg twice daily at discharge. Continue to monitor intake and output. Serial chest x-ray. (4) Hypertension: Plan: Controlled with current medication regimen. (5) Asthma-COPD overlap syndrome: Plan: Continue Advair Diskus or hospital formulary equivalent Continue Incse Ellip [facility] (6) Leukocytosis: Plan: Appears to be an acute on chronic process. She initially had an unremarkable peripheral smear as previous work-up in June. No active infection. Afebrile. Serial labs. No infection signs or symptoms. (7) Type 2 diabetes mellitus: Plan: Hemoglobin A1c 6.1 in September. Basal insulin therapy. ADA diet. Sliding scale coverage as needed (8) Mitral stenosis: Plan: Mild mitral stenosis and mild mitral regurgitation seen on echo. No intervention necessary at this time. Pursue rate control with new atrial fibrillation (9) Morbid obesity: Plan: BMI greater than 40. Recommend weight loss Plan VTE Prophylaxis -now on Eliquis. Disposition -eventual discharge to home. Hopefully within the next day or 2 Admission and Anticipated Discharge Date Admission Date: November 12, 2022 Subjective 77 yo female reports feeling better today. She states she is close to her baseline. She has no new complaints. Review of Systems Review of Systems: All systems reviewed & are unremarkable except as noted in HPI & below Physical Exam Physical Exam: Constitutional: WD/WN, vitals as above Eyes: + anicteric sclerae; normal pupil size ENMT: external ear and nose normal, oropharynx normal Respiratory: normal respiratory effort, lungs clear to auscultation Cardiovascular: Rate/Rhythm: normal rate and + irregularly irregular Heart Sounds: no murmur Extremities: normal capillary refill and + pedal edema ); no calf tenderness Gastrointestinal (Abdomen): normal bowel sounds, soft, nontender, no hepatosplenomegaly Musculoskeletal: no cyanosis or clubbing, extremities motor strength 5/5 Skin: no rashes, warm and dry Neurologic: moves all extremities and awake; not confused Psychiatric: A+Ox3, euthymic affect Results & Data Results & Data ([facility]) Vital Signs (Past 12 Hours) Vital Signs Temp Pulse Pulse Pulse Resp BP Pulse Ox 11/16/22 15:51 36.7 C 86 19 111/72 97 11/16/22 14:00 94 H 11/16/22 07:00 87 11/16/22 07:00 11/16/22 12:03 36.7 C 83 19 121/72 96 11/16/22 07:52 36.8 C 83 19 117/57 L 100 11/16/22 06:18 87 141/85 H O2 Del Method O2 Flow Rate 11/16/22 15:51 Nasal Cannula 2 11/16/22 14:00 11/16/22 07:00 11/16/22 07:00 Nasal Cannula 2 11/16/22 12:03 Nasal Cannula 2 11/16/22 07:52 Nasal Cannula 2 11/16/22 06:18 PG Care Time/CCT Total # of Minutes Spent Total Time Spent with Patient: Total time spent is greater than 50% in coordination of care (as documented) at patient's floor/unit and/or counseling patient: Coding Level of Care Code 47130 SUB INP/OBS CARE 2/35MIN Diagnoses Acute and chronic respiratory failure with hypoxia J96.21 New onset atrial fibrillation I48.91 Acute on chronic heart failure with preserved ejection fraction I50.33 Hypertension I10 Hypertension type: essential hypertension Asthma-COPD overlap syndrome J44.9 Leukocytosis D72.829 Type 2 diabetes mellitus E11.9 Mitral stenosis I05.0 Morbid obesity E66.01 (1) Hypertension Hypertension type: essential hypertension Qualified Code(s): I10 - Essential (primary) hypertension
[2022-11-17] MEDS: METOPROLOL TARTRATE 25 MG TAB PO SCH (05:15)
[2022-11-17 06:52] LABS: Basophils # (auto) 0.07 K/uL (0-0.2); Basophils % (auto) 0.7 %; Eosinophils # (auto) 0.78 K/uL (0-0.50); Eosinophils % (auto) 7.8 %; Hematocrit (blood only) 29.2 % (37.0-47.0); Hemoglobin 9.3 g/dl (12.0-16.0); Immature Granulocytes # (auto) 0.05 K/uL (0.01-0.20); Immature Granulocytes % (auto) 0.5 %; Lymphocytes # (auto) 1.11 K/uL (1.2-3.4); Mean Corpuscular Hemoglobin 28.4 pg (25.0-34.0); Mean Corpuscular Hgb Conc 31.8 g/dL (32.0-36.0); Monocytes % (auto) 8.9 %; Neutrophils # (auto) 7.15 K/uL (1.40-6.50); Neutrophils % (auto) 71.1 %; Platelet Count 312 K/uL (130-400); RDW Coefficient of Variation 16.8 % (11.5-14.5); RDW Standard Deviation 54.5 fL (36.4-46.3); Red Blood Count 3.28 M/uL (4.20-5.40); White Blood Count 10.06 K/ul (4.8-10.8)
[2022-11-17 06:58] LABS: BUN Creatinine Ratio 21.1 (10-20); Calcium 9.7 mg/dl (8.5-10.1); Creatinine Clr Calc Pharmacy 30.3 ml/min; Est GFR (African American) 32.9 ml/min; Est GFR (Non-African American) 28.4 ml/min; Potassium 3.9 mmol/L (3.5-5.1)
[2022-11-17] MEDS: APIXABAN 5 MG TABLET PO SCH (08:39)
[2022-11-17] MEDS: FLUTICASONE/VILANTEROL 100/25MCG 14 PUFFS/INHALER INH SCH (08:41)
[2022-11-17] MEDS: UMECLIDINIUM BROMIDE 62.5MCG/BLISTER 7 PUFFS/INHALER INH SCH (08:41)
[2022-11-17] MEDS: INSULIN ASPART PER UNIT SC SCH ×3 (08:42→17:56)
[2022-11-17] MEDS ORDERED: FUROSEMIDE 40 MG/4 ML VIAL IV SCH (09:00)
[2022-11-17] MEDS ORDERED: SPIRONOLACTONE 12.5 MG TAB PO SCH (09:00)
[2022-11-17] MEDS ORDERED: LANTUS PER UNIT CHARGE SQ SCH (09:00)
--- NOTE | 2022-11-17 09:49 | Cardiology Progress Note ---
Date of Service November 17, 2022 Assessment & Plan (1) Acute on chronic heart failure with preserved ejection fraction: Plan: Mrs. 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 Patient still notices exertional dyspnea with walking across the room but her breathing is significantly improved since the time of admission. She has a negative fluid balance of > 3.7 L and denies any SOB at rest, orthopnea, or PND. Her heart rates appear to be in the 80's and 90's at rest -- but when she walked to the bathroom and while cleaning herself up her heart rate was in the 118 to 130 bpm range. She has not had any angina pectoris or anginal equivalent symptoms, nor has she had any symptoms suggestive of stroke or mini-stroke. Her [id number] is 7. -- Suspect her acute Diastolic CHF is related to her rapid Atrial Fibrillation in the presence of mitral stenosis and LVH. -- Improving on IV Lasix, negative fluid balance of > 3.7 L. -- Echocardiogram 11/13/2022 showed normal biventricular systolic function, LVEF 55% to 60%, mild LVH, severe MAC, indeterminate MR, mild MR, mild TR, and mild pulmonary hypertension. -- Continue to control V-rate, continue oral Lasix 60 to 80 mg daily at discharge. -- Monitor daily body weights. -- 2 gram low sodium diet. (2) New onset atrial fibrillation: Plan: New onset A-Fib with RVR upon presentation: -- Most likely developed 1 month prior to presentation. -- V-rate is controlled at rest but increases into the low 130's with minimal exertion. -- Stop short acting Metoprolol Tartrate. -- Begin Metoprolol Succinate ER 200 mg daily, 1st dose now. -- Continue Eliquis 5 mg b.i.d. to reduce risk of thromboembolic phenomena related to A-Fib. -- If she is rate controlled and asymptomatic at follow-up visit we will continue a rate control/anticoagulation strategy. -- However if she remains symptomatic or rate isn't well controlled -- consider med adjustment +/- elective electrical cardioversion(after being fully anticoagulated x 3.5 weeks). (3) Mitral stenosis: Plan: -- Echocardiogram 11/13/2022 demonstrated normal biventricular systolic function, LVEF 55% to 60%, mild LVH, severe MAC, indeterminate MR, mild MR, mild TR, and mild pulmonary hypertension. Patient is stable for discharge from a cardiac standpoint. Please schedule follow-up with Dr. Foote or Avel Carmen PA-C 2 to 3 weeks after discharge. Admission and Anticipated Discharge Date Admission Date: November 12, 2022 Subjective Mrs. 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 Patient still notices exertional dyspnea with walking across the room but her breathing is significantly improved since the time of admission. She has a negative fluid balance of > 3.7 L and denies any SOB at rest, orthopnea, or PND. Her heart rates appear to be in the 80's and 90's at rest -- but when she walked to the bathroom and while cleaning herself up her heart rate was in the 118 to 130 bpm range. Patient offers no other complaints. She denies any exertional chest pain, heaviness, tightness, pressure, or discomfort. She denies any exertional neck, jaw, back, or arm pain. She denies any syncope or near syncope. She has not had any symptoms suggestive of stroke or mini-stroke. Patient is tolerating her current regimen without side effects. She denies any bleeding complication related to Eliquis therapy. She is planning to be discharged later today. Review of Systems Review of Systems: 10 point ROS was completed and is negative with the exception of what is mentioned in the HPI. Physical Exam Physical Exam: GENERAL: Patient in no acute distress, sitting in a chair at bedside. HEENT: Head is atraumatic, normocephalic. EOM's intact. Facies symmetric. No perioral cyanosis. NECK: No JVD. JVP is not elevated. Carotid upstrokes are + 2 bilaterally without obvious bruits. CHEST/LUNGS: Diminished breath sounds throughout but otherwise clear. No wheezes, rales, or crackles. CVS: S1 and S2 are irregularly irregular and distant at 103 bpm. No obvious murmurs, gallops, or rubs. PMI is nonpalpable. No lifts, heaves, or thrills. No abdominal aortic or renal bruits. ABDOMINAL EXAM: Bowel sounds are present. No masses, organomegaly, or tenderness. EXTREMITIES: No clubbing or cyanosis. +1 bilateral pretibial edema. Intact radial pulses bilaterally. NEUROLOGIC EXAM: Patient is awake, alert, and oriented. Pleasant and cooperative. Answers questions appropriately. Speech is clear. Gait pattern was not assessed. 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 -- V-rates up to 131 bpm with minor activities. ECHOCARDIOGRAM 11/13/2022: -- Normal biventricular systolic function. -- LVEF 55% to 60%, normal wall motion. -- Mild concentric LVH. -- Severe mitral annular calcification with indeterminate MR and mild MS. -- Mild TR. -- Estimated RVSP 30 to 40 mmHg, mild pulmonary hypertension. Cumulative I&O's: -- Negative fluid balance of 3719 mL. Results & Data ([facility]) Vital Signs (Past 12 Hours) Vital Signs Temp Pulse Resp BP Pulse Ox O2 Del Method O2 Del Method 11/17/22 08:00 36.6 C 87 21 117/71 100 Nasal Cannula 11/17/22 07:00 Nasal Cannula 11/17/22 03:36 36.5 C 89 18 125/76 97 Nasal Cannula 11/16/22 23:25 36.8 C 90 18 116/77 95 Nasal Cannula 11/16/22 22:00 Nasal Cannula O2 Flow Rate O2 Flow Rate 11/17/22 08:00 1 11/17/22 07:00 1 11/17/22 03:36 1 11/16/22 23:25 1 11/16/22 22:00 1 Laboratory Results Laboratory Results - last 24 hr 11/16/22 11/16/22 11/16/22 11:59 16:55 20:02 WBC RBC Hgb Hct MCV MCH MCHC RDW Std Deviation RDW Coeff of Dee Plt Count MPV Immature Gran % (Auto) Neut % (Auto) Lymph % (Auto) [place] % (Auto) Eos % (Auto) Baso % (Auto) Neut # (Auto) Lymph # (Auto) [place] # (Auto) Eos # (Auto) Baso # (Auto) Immature Gran # (Auto) Sodium Potassium Chloride Carbon Dioxide Anion Gap BUN Creatinine Est Cr Clr Drug Dosing Est GFR ( Amer) Est GFR (Non-Af Amer) BUN/Creatinine Ratio Glucose POC Glucose 154 H 155 H 193 H Calcium B-Natriuretic Peptide 11/17/22 11/17/22 11/17/22 06:13 06:13 06:13 WBC 10.06 RBC 3.28 L Hgb 9.3 L Hct 29.2 L MCV 89.0 MCH 28.4 MCHC 31.8 L RDW Std Deviation 54.5 H RDW Coeff of Dee 16.8 H Plt Count 312 MPV 10.0 Immature Gran % (Auto) 0.5 Neut % (Auto) 71.1 Lymph % (Auto) 11.0 Austin % (Auto) 8.9 Eos % (Auto) 7.8 Baso % (Auto) 0.7 Neut # (Auto) 7.15 H Lymph # (Auto) 1.11 L Austin # (Auto) 0.90 H Eos # (Auto) 0.78 H Baso # (Auto) 0.07 Immature Gran # (Auto) 0.05 Sodium 137 Potassium 3.9 Chloride 99 Carbon Dioxide 35 H Anion Gap 3 BUN 36 H Creatinine 1.71 H Est Cr Clr Drug Dosing 30.3 Est GFR ( Amer) 32.9 Est GFR (Non-Af Amer) 28.4 BUN/Creatinine Ratio 21.1 H Glucose 145 H POC Glucose Calcium 9.7 B-Natriuretic Peptide 393 H 11/17/22 07:04 WBC RBC Hgb Hct MCV MCH MCHC RDW Std Deviation RDW Coeff of Dee Plt Count MPV Immature Gran % (Auto) Neut % (Auto) Lymph % (Auto) Austin % (Auto) Eos % (Auto) Baso % (Auto) Neut # (Auto) Lymph # (Auto) Austin # (Auto) Eos # (Auto) Baso # (Auto) Immature Gran # (Auto) Sodium Potassium Chloride Carbon Dioxide Anion Gap BUN Creatinine Est Cr Clr Drug Dosing Est GFR ( Amer) Est GFR (Non-Af Amer) BUN/Creatinine Ratio Glucose POC Glucose 155 H Calcium B-Natriuretic Peptide Diagnostic Findings CXR 11/15/2022: IMPRESSION: 1. Interstitial pulmonary edema, slightly improved since prior exam. 2. Mild increase in small bilateral pleural effusions and associated bibasilar opacities. CXR 11/12/2022: No pneumothorax. There are small bilateral pleural effusions. The heart remains mildly enlarged. There is progressive interstitial/vascular thickening consistent with mild pulmonary edema. There are mitral annulus calcifications again noted. IMPRESSION: -- Interval progression of the pulmonary edema and small bilateral pleural effusions. Medications Administered Medications ascorbic acid (vitamin C) 1,000 mg tablet 1,000 mg PO BID 05/22/19 [History Confirmed 11/12/22] aspirin 325 mg tablet 325 mg PO HS 05/22/19 [History Confirmed 11/12/22] lancets 28 gauge (XYZE Lancets) #25 ea 05/22/19 [History Confirmed 09/21/22] multivitamin (Daily Multi-Vitamin tablet) 1 tab PO QAM 05/22/19 [History Confirmed 11/12/22] vitamin B complex 1 tab PO QAM 09/21/19 [History Confirmed 11/12/22] vitamin E 670 mg (1,000 unit) capsule 1,000 unit PO QAM 09/21/19 [History Confirmed 11/12/22] Portable Oxygen #1 ea 12/05/20 [Rx Confirmed 09/21/22] albuterol sulfate 90 mcg/actuation aerosol inhaler 2 puff inhalation Q6H PRN Shortness Of Breath Or Wheezing #18 grams 11/28/21 [Rx Confirmed 11/12/22] fluticasone 250 mcg-salmeterol 50 mcg/dose blistr powdr for inhalation (Advair Diskus) 1 inh inhalation Q12H #180 ea 11/28/21 [Rx Confirmed 11/12/22] blood sugar diagnostic (XYZE No Coding strips) #400 ea 01/02/22 [Rx Confirmed 09/21/22] semaglutide 1 mg/dose (4 mg/3 mL) subcutaneous pen injector (Ozempic) 1 mg (0.75 mL) subcut Q7D #9 mL 03/04/22 [Rx Confirmed 11/12/22] umeclidinium 62.5 mcg/actuation blister powder for inhalation (Incruse Ellipta) 1 inh inhalation DAILY #3 Inhalers 07/15/22 [Rx Confirmed 11/12/22] insulin NPH isoph U-100 human 100 unit/mL (3 mL) subcutaneous pen (Humulin N NPH U-100 Insulin KwikPen) 30 unit (0.3 mL) subcut BID 90 days #54 Boxes 07/20/22 [Rx Confirmed 11/12/22] metformin 1,000 mg tablet 1,000 mg PO BID 90 days #180 tabs 07/20/22 [Rx Confirmed 11/12/22] cholecalciferol (vitamin D3) 125 mcg (5,000 unit) capsule 10,000 unit PO QAM #30 caps 09/21/22 [History Confirmed 11/12/22] furosemide 40 mg tablet 40 mg .Route BID #180 tabs 10/27/22 [Rx Confirmed 11/12/22] fish, borage, flaxseed oils-omega 3,6,9 cb #1 400 mg-400 mg-400 mg cap ([place] 3-6-9 Complex) 0 cap PO UNKNOWN 11/12/22 [History Confirmed 11/12/22] Home Medications Acetaminophen (Acetaminophen 325 Mg Tab) 650 mg PO Q4H PRN PRN Reason: Pain or Fever Stop: 12/12/22 22:30 Apixaban (Apixaban 5 Mg Tablet) 5 mg PO BID [facility] Stop: 12/14/22 11:44 Last Admin: 11/17/22 08:39 Dose: 5 mg Dextrose (Dextrose 50% 50 Ml Syringe) 25 - 50 ml IV UD PRN; Protocol PRN Reason: Hypoglycemia Protocol Stop: 12/12/22 22:30 Last Admin: 11/13/22 22:28 Dose: 25 ml Fluticasone/Vilanterol (Fluticasone/Vilanterol 100/25mcg 14 Puffs/Inhaler) 1 puffs INH DAILY TALAT; Protocol Stop: 12/14/22 08:59 Last Admin: 11/17/22 08:41 Dose: 1 puffs Furosemide (Furosemide 40 Mg/4 Ml Vial) 60 mg IV DAILY TALAT Stop: 12/17/22 08:59 Last Admin: 11/17/22 08:39 Dose: 60 mg Glucagon (Glucagon For Inj 1 Mg Vial) 1 mg SQ UD PRN; Protocol PRN Reason: Hypoglycemia Protocol Stop: 12/12/22 22:30 Glucose (Glucose 40% Gel 15 Gm Tube) 15 - 30 gm PO UD PRN; Protocol PRN Reason: Hypoglycemia Protocol Stop: 12/12/22 22:30 Glucose (Glucose 10 Tab/Tube) 4 - 8 tab PO UD PRN; Protocol PRN Reason: Hypoglycemia Treatment Stop: 12/12/22 22:30 Insulin Aspart (Insulin Aspart Per Unit) 0 units SC ACHS TALAT Stop: 12/12/22 22:30 Last Admin: 11/17/22 08:42 Dose: 8 units Insulin Glargine (Lantus Per Unit Charge) 15 units SQ DAILY TALAT Stop: 12/17/22 08:59 Last Admin: 11/17/22 08:42 Dose: 15 units Metoprolol Succinate (Metoprolol Succ 50mg Ext Rel Tab) 200 mg PO DAILY TALAT Stop: 12/17/22 09:59 Miscellaneous (Carbohydrates For Hypoglycemia ) 15 - 30 gm PO UD PRN PRN Reason: Hypoglycemia Protocol Stop: 12/12/22 22:30 Last Admin: 11/13/22 22:11 Dose: 30 gm Spironolactone (Spironolactone 12.5 Mg Tab) 12.5 mg PO DAILY [facility] Stop: 12/17/22 08:59 Last Admin: 11/17/22 08:39 Dose: 12.5 mg Umeclidinium Price (Umeclidinium Price 62.5mcg/Blister 7 Puffs/Inhaler) 1 puffs INH DAILY [facility] Stop: 12/12/22 22:30 Last Admin: 11/17/22 08:41 Dose: 1 puffs PG Care Time/CCT Total # of Minutes Spent Total Time Spent with Patient: Total time spent is greater than 50% in coordination of care (as documented) at patient's floor/unit and/or counseling patient:27 Coding [place] [address] SUB INP/OBS CARE 3/50MIN Patient Type Established History Detailed Exam Detailed Medical Decision Making High Complexity Diagnoses Acute on chronic heart failure with preserved ejection fraction I50.33 New onset atrial fibrillation I48.91 Mitral stenosis I05.0 Time Spent (min) 53
[2022-11-17] MEDS ORDERED: METOPROLOL SUCC 50MG EXT REL TAB PO SCH (10:00)
--- NOTE | 2022-11-18 14:38 | Discharge Summary ---
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 fib with RVR with worsening shortness of breath. Patient is on chronic oxygen with 2 to 3 L nasal cannula at home. She reports feeling short of breath and unable to leave her house for the last month. She went to her cardiology office today for routine echocardiogram and was noted to be in A-fib with rapid ventricular rate therefore EMS were called and she was transported to the ER. 15 mg diltiazem IV given by EMS prior to arrival. She denies any chest pain, palpitations, claudication or paroxysmal nocturnal dyspnea. She is experiencing orthopnea. She denies any infective symptoms such as fever, chills, dysuria, abdominal pain, diarrhea, nasal congestion, sinus pain. She reports a cough with clear sputum and shortness of breath as above. In the ER she was noted to have O2 sats 84% on 4 L nasal cannula with increased work of breathing. She was placed on BiPAP, given Lasix 40 mg IV and give albuterol/ipratropium nebulizer and reports already feeling 50% better and wanting to come off the BiPAP. Principal Diagnosis acute on chronic respiratory failure with hypoxemia Discharge Exam Constitutional: WD/WN, vitals as above Eyes: + anicteric sclerae; normal pupil size ENMT: external ear and nose normal, oropharynx normal Respiratory: normal respiratory effort, lungs clear to auscultation Cardiovascular: Rate/Rhythm: normal rate and + irregularly irregular Heart Sounds: no murmur Extremities: normal capillary refill and + pedal edema ); no calf tenderness Gastrointestinal (Abdomen): normal bowel sounds, soft, nontender, no hepatosplenomegaly Musculoskeletal: no cyanosis or clubbing, extremities motor strength 5/5 Skin: no rashes, warm and dry Neurologic: moves all extremities and awake; not confused Psychiatric: A+Ox3, euthymic affect Discharge Data Allergies Allergy/AdvReac Type Severity Reaction Status Date / Time latex Allergy Intermediate Rash Verified 11/12/22 16:49 cinnamon AdvReac Intermediate Hematuria Verified 11/12/22 16:49 lisinopril AdvReac Intermediate Cough Verified 11/12/22 16:49 losartan AdvReac Intermediate Skin Verified 11/12/22 16:49 crawling sensation Consultations 11/12/22 15:50 ED Decision to Admit Stat 11/13/22 08:08 Consult Cardiology Routine Hospital Course (1) Acute and chronic respiratory failure with hypoxia: Secondary to pulmonary edema as below. Aim O2 sats > 90% Baseline O2 requirement 2LPM O2 at rest and 3LPM O2 on exertion Patient treated initially with furosemide BID. then down titrated to furosemide to 60 mg IV once a day and added spironolactone. Creatinine did not worsen, As she improved, patient was clear for discharge. Appreciate input from cardio. Discharge instructions noted below (2) New onset atrial fibrillation: Controlled rate. Continue metoprolol. She is now on Eliquis. (3) Acute on chronic heart failure with preserved ejection fraction: Continue Lasix diuresis. as outlined above. (4) Hypertension: Controlled with current medication regimen. (5) Asthma-COPD overlap syndrome: Continue Advair Diskus or hospital formulary equivalent Continue Incruse Ellipta or hospital for milliequivalent (6) Leukocytosis: Appears to be an acute on chronic process. She initially had an unremarkable peripheral smear as previous work-up in June. No active infection. Afebrile. Serial labs. No infection signs or symptoms. (7) Type 2 diabetes mellitus: Hemoglobin A1c 6.1 in September. Basal insulin therapy. ADA diet. Sliding scale coverage as needed (8) Mitral stenosis: Mild mitral stenosis and mild mitral regurgitation seen on echo. No intervention necessary at this time. Pursue rate control with new atrial fibrillation (9) Morbid obesity: BMI greater than 40. Recommend weight loss Acute kidney failure Creatinine level on admission at 1.51 from baseline of 1.19 on 09/2022. Creatinine maintained at 1.7 will recommend repeat BMp as an outpatient. Plan VTE Prophylaxis -now on Eliquis. Disposition -eventual discharge to home. Hopefully within the next day or 2 Total Time Total Time Spent Total Time Spent (In Minutes): 35 Discharge Plan Discharge Items Patient Disposition: Home - Self-Care Reason For Visit: ACUTE ON CHRONIC HFPEF, A FIB WITH RVR Discharge Diagnosis: Acute on chronic HFpEF, A fib with RVR. Activity: Resume your previous activity Non-emergency contact: Primary Care Provider Call non-emergency contact if: you have any medication questions Follow-up/Referrals: Jayne Mayo DO [Primary Care Provider] - 11/24/22 8:20 am (You have a follow up appointment with Dr Mateo Hollins.) Diet: Carb Consistent or DM2, Heart Healthy and Low Sodium (2gm) Addtl Attending Provider Instructions: Call your Primary Care doctor if any of the following symptoms or problems start or get worse: * Shortness of breath or difficulty breathing * Wake up at night short of breath * Chest pain * Cough * Swelling of your hands, feet, or legs * More fatigued or tired with your normal activity * Palpitations - sudden fast heart beats WEIGHT * Weigh yourself every morning after using the bathroom. * Use the same scale. * Wear the same amount of clothing. * Write your weight down on a chart. * Call your Primary Care doctor if you gain more than 2-3 pounds in 1-2 days. MEDICATIONS * Use this discharge instruction sheet for medication instructions. * Take your medications at the time your doctor ordered. * Do not skip a dose of your medicines. * If you miss a dose of medicine, take it as soon as possible, but DO NOT DOUBLE A DOSE. * Read your medicine information when you get home. * Know all of the side effects of your medicine. If in doubt, ask your pharmacist * Call your Primary Care doctor's office if you have any side effects. * Be sure all of your doctors know what medicine and herbs you take (including cold, flu, and herbal medicine). Take the following with you to your follow-up doctor appointments: * Weight Chart * Medication List * List of questions Do not drink excessive alcohol, beer or wine. Pending Studies at Discharge: No Stand-Alone Forms: [facility], Sm[facility] Cess[facility] Medications and DC Order Prescriptions: New metoprolol succinate 50 mg Tablet Extended Release 24 Hr 200 mg PO DAILY 30 Days Qty: 120 0RF spironolactone 25 mg Tablet 12.5 mg PO DAILY Qty: 30 0RF Eliquis 5 mg Tablet 5 mg PO BID Qty: 60 0RF Continued (DME) Prodigy No Coding Strip See Dose Instructions .ROUTE .MEDSUPPLY Qty: 400 3RF Dose Instruction: As directed Rx Instructions: Test 4 times daily Ozempic 1 mg/dose (4 mg/3 mL) pen injector 1 mg subcut Q7D Qty: 9 3RF Rx Instructions: Takes on Wednesday metformin 1,000 mg tablet 1,000 mg PO BID 90 Days Qty: 180 3RF Humulin N NPH Insulin KwikPen 100 unit/mL (3 mL) insulin pen 30 unit SUBCUT BID 90 Days Qty: 54 3RF furosemide 40 mg tablet 40 mg .ROUTE BID Qty: 180 1RF Rx Instructions: 40 mg twice a day; fluticasone propion-salmeterol [Advair Diskus] 250-50 mcg/dose blister with device 1 inh inhalation Q12H Qty: 180 6RF albuterol sulfate 90 mcg/actuation HFA aerosol inhaler 2 puff inhalation Q6H PRN (Reason: Shortness Of Breath Or Wheezing) Qty: 18 3RF ascorbic acid (vitamin C) 1,000 mg tablet 1,000 mg PO BID (DME) lancets [Prodigy Lancets] 28 gauge misc See Dose Instructions .ROUTE .MEDSUPPLY Qty: 25 Rx Instructions: Test 4 times daily multivitamin [Daily Multi-Vitamin] tablet 1 tab PO QAM cholecalciferol (vitamin D3) 125 mcg (5,000 unit) capsule 10,000 unit PO QAM Qty: 30 (DME) Portable Oxygen Misc See Rx Instructions .ROUTE .MEDSUPPLY Qty: 1 0RF Rx Instructions: As directed. 2L NC w/ activity. Dx: J96.11 Incruse Ellipta 62.5 mcg/actuation blister with device 1 inh inhalation DAILY Qty: 3 4RF vitamin E 1,000 unit Capsule 1,000 unit PO QAM vitamin B complex Tablet 1 tab PO QAM fish,bora,flax oils-om3,6,[id number] [[place] 3-6-9 Complex] 400-400-400 mg Capsule 0 cap PO UNKNOWN Discontinued aspirin 325 mg tablet 325 mg PO HS Discharge Orders: Discharge Order- CHF (Routine); Ordered 11/17/22 Ordered By: Som Baldwin Admission Data Admit Date/Time: 11/12/22 16:26 Attending Provider: Som Baldwin Admit Provider: Donta Robison Primary Care Provider: Jayne Mayo Other Providers: Donta Robison ; Avel Carmen ; Brad Jackson ; Tristian Foote ; Jayson Zaidi ; Cesar Hitchcock ; Hugo Hollins Jr ; Balaji Miller ; Allegra Gaspar ; Jyoti Verduzco ; Kuldip Portillo ; Nolberto Ozuna ; Kasi Rehman ; Lydia Deal ; Jordyn Navarrete ; Twan Pascual ; Gasper Adan ; Gerard Escobedo ; Jayson Dang V. Other Interventions: Discharge Summary Assessment (RN) Last Done: 11/17/22 16:59 Coding Level of Care Code HOSP INP/OBS DISCH >30 MIN Diagnoses Acute and chronic respiratory failure with hypoxia J96.21 New onset atrial fibrillation I48.91 Acute on chronic heart failure with preserved ejection fraction I50.33 Hypertension I10 Hypertension type: essential hypertension Asthma-COPD overlap syndrome J44.9 Leukocytosis D72.829 Type 2 diabetes mellitus E11.9 Mitral stenosis I05.0 Morbid obesity E66.01
--- NOTE | 2022-11-19 16:13 | Discharge Summary ---
Date of Service November 19, 2022 Admission HPI Per Admitting Provider Mara Kumar is a 77 year old female who presents to the ER via EMS as advised by her [facility] consultant office found to be in new onset a. fib with RVR with worsening shortness of breath. Patient is on chronic oxygen with 2 to 3 L nasal cannula at home. She reports feeling short of breath and unable to leave her house for the last month. She went to her cardiology office today for routine echocardiogram and was noted to be in A-fib with rapid ventricular rate therefore EMS were called and she was transported to the ER. 15 mg diltiazem IV given by EMS prior to arrival. She denies any chest pain, palpitations, claudication or paroxysmal nocturnal dyspnea. She is experiencing orthopnea. She denies any infective symptoms such as fever, chills, dysuria, abdominal pain, diarrhea, nasal congestion, sinus pain. She reports a cough with clear sputum and shortness of breath as above. In the ER she was noted to have O2 sats 84% on 4 L nasal cannula with increased work of breathing. She was placed on BiPAP, given Lasix 40 mg IV and give albuterol/ipratropium nebulizer and reports already feeling 50% better and wanting to come off the BiPAP. Discharge Data Allergies Allergy/AdvReac Type Severity Reaction Status Date / Time latex Allergy Intermediate Rash Verified 11/12/22 16:49 cinnamon AdvReac Intermediate Hematuria Verified 11/12/22 16:49 lisinopril AdvReac Intermediate Cough Verified 11/12/22 16:49 losartan AdvReac Intermediate Skin Verified 11/12/22 16:49 crawling sensation Consultations 11/12/22 15:50 ED Decision to Admit Stat 11/13/22 08:08 Consult Cardiology Routine Hospital Course (1) Acute and chronic respiratory failure with hypoxia: Secondary to pulmonary edema as below. Aim O2 sats > 90% Baseline O2 requirement 2LPM O2 at rest and 3LPM O2 on exertion Patient treated initially with furosemide BID. then down titrated to furosemide to 60 mg IV once a day and added spironolactone. Creatinine did not worsen, As she improved, patient was clear for discharge. Appreciate input from cardio. Discharge instructions noted below (2) New onset atrial fibrillation: Controlled rate. Continue metoprolol. She is now on Eliquis. (3) Acute on chronic heart failure with preserved ejection fraction: Continue Lasix diuresis. as outlined above. (4) Hypertension: Controlled with current medication regimen. (5) Asthma-COPD overlap syndrome: Continue Advair Diskus or hospital formulary equivalent Continue Incruse Ellipta or hospital for milliequivalent (6) Leukocytosis: Appears to be an acute on chronic process. She initially had an unremarkable peripheral smear as previous work-up in June. No active infection. Afebri le. Serial labs. No infection signs or symptoms. (7) Type 2 diabetes mellitus: Hemoglobin A1c 6.1 in September. Basal insulin therapy. ADA diet. Sliding scale coverage as needed (8) Mitral stenosis: Mild mitral stenosis and mild mitral regurgitation seen on echo. No intervention necessary at this time. Pursue rate control with new atrial fi brillation (9) Morbid obesity: BMI greater than 40. Recommend weight loss Acute kidney failure Creatinine level on admission at 1.51 from baseline of 1.19 on 09/2022. Creatinine maintained at 1.7 will recommend repeat BMp as an outpatient. Plan VTE Prophylaxis -now on Eliquis. Disposition -eventual discharge to home. Hopefully within the next day or 2 Discharge Plan Discharge Items Patient Disposition: Home - Self-Care Reason For Visit: ACUTE ON CHRONIC HFPEF, A FIB WITH RVR Discharge Diagnosis: Acute on chronic HFpEF, A fib with RVR. Activity: Resume your previous activity Non-emergency contact: Primary Care Provider Call non-emergency contact if: you have any medication questions Follow-up/Referrals: Jayne Mayo DO [Primary Care Provider] - 11/24/22 8:20 am (You have a follow up appointment with Dr Mateo Hollins.) Diet: Carb Consistent or DM2, Heart Healthy and Low Sodium (2gm) Addtl Attending Provider Instructions: Call your Primary Care doctor if any of the following symptoms or problems start or get worse: * Shortness of breath or difficulty breathing * Wake up at night short of breath * Chest pain * Cough * Swelling of your hands, feet, or legs * More fatigued or tired with your normal activity * Palpitations - sudden fast heart beats WEIGHT * Weigh yourself every morning after using the bathroom. * Use the same scale. * Wear the same amount of clothing. * Write your weight down on a chart. * Call your Primary Care doctor if you gain more than 2-3 pounds in 1-2 days. MEDICATIONS * Use this discharge instruction sheet for medication instructions. * Take your medications at the time your doctor ordered. * Do not skip a dose of your medicines. * If you miss a dose of medicine, take it as soon as possible, but DO NOT DOUBLE A DOSE. * Read your medicine information when you get home. * Know all of the side effects of your medicine. If in doubt, ask your pharmacist * Call your Primary Care doctor's office if you have any side effects. * Be sure all of your doctors know what medicine and herbs you take (including cold, flu, and herbal medicine). Take the following with you to your follow-up doctor appointments: * Weight Chart * Medication List * List of questions Do not drink excessive alcohol, beer or wine. Pending Studies at Discharge: No Stand-Alone Forms: [employer] Smoking Cessation Medications and DC Order Prescriptions: New metoprolol succinate 50 mg Tablet Extended Release 24 Hr 200 mg PO DAILY 30 Days Qty: 120 0RF spironolactone 25 mg Tablet 12.5 mg PO DAILY Qty: 30 0RF Eliquis 5 mg Tablet 5 mg PO BID Qty: 60 0RF Continued (DME) Prodigy No Coding Strip See Dose Instructions .ROUTE .MEDSUPPLY Qty: 400 3RF Dose Instruction: As directed Rx Instructions: Test 4 times daily Ozempic 1 mg/dose (4 mg/3 mL) pen injector 1 mg subcut Q7D Qty: 9 3RF Rx Instructions: Takes on Wednesday metformin 1,000 mg tablet 1,000 mg PO BID 90 Days Qty: 180 3RF Humulin N NPH Insulin KwikPen 100 unit/mL (3 mL) insulin pen 30 unit SUBCUT BID 90 Days Qty: 54 3RF furosemide 40 mg tablet 40 mg .ROUTE BID Qty: 180 1RF Rx Instructions: 40 mg twice a day; fluticasone propion-salmeterol [Advair Diskus] 250-50 mcg/dose blister with device 1 inh inhalation Q12H Qty: 180 6RF albuterol sulfate 90 mcg/actuation HFA aerosol inhaler 2 puff inhalation Q6H PRN (Reason: Shortness Of Breath Or Wheezing) Qty: 18 3RF ascorbic acid (vitamin C) 1,000 mg tablet 1,000 mg PO BID (DME) lancets [Prodigy Lancets] 28 gauge misc See Dose Instructions .ROUTE .MEDSUPPLY Qty: 25 Rx Instructions: Test 4 times daily multivitamin [Daily Multi-Vitamin] tablet 1 tab PO QAM cholecalciferol (vitamin D3) 125 mcg (5,000 unit) capsule 10,000 unit PO QAM Qty: 30 (DME) Portable Oxygen Misc See Rx Instructions .ROUTE .MEDSUPPLY Qty: 1 0RF Rx Instructions: As directed. 2L NC w/ activity. Dx: J96.11 Incruse Ellipta 62.5 mcg/actuation blister with device 1 inh inhalation DAILY Qty: 3 4RF vitamin E 1,000 unit Capsule 1,000 unit PO QAM vitamin B complex Tablet 1 tab PO QAM fish,bora,flax oils-om3,6,9no1 [Naselle 3-6-9 Complex] 400-400-400 mg Capsule 0 cap PO UNKNOWN Discontinued aspirin 325 mg tablet 325 mg PO HS Discharge Orders: Discharge Order- CHF (Routine); Ordered 11/17/22 Ordered By: Som Baldwin Admission Data Admit Date/Time: 11/12/22 16:26 Attending Provider: Som Baldwin Admit Provider: Donta Robison Primary Care Provider: Jayne Mayo Other Providers: Donta Robison ; Avel Carmen ; Brad Jackson ; Tristian Foote ; Jayson Zaidi ; Cesar Hitchcock ; Hugo Hollins Jr ; Balaji Miller ; Allegra Gaspar ; Jyoti Verduzco ; Kuldip Portillo ; Nolberto Ozuna ; Kasi Rehman ; Lydia Deal ; Jordyn Navarrete ; Twan Pascual ; Gasper Adan ; Gerard Escobedo ; Jayson Dang V. Other Interventions: Discharge Summary Assessment (RN) Last Done: 11/17/22 16:59 Coding Diagnoses Acute and chronic respiratory failure with hypoxia J96.21 New onset atrial fibrillation I48.91 Acute on chronic heart failure with preserved ejection fraction I50.33 Hypertension I10 Hypertension type: essential hypertension Asthma-COPD overlap syndrome J44.9 Leukocytosis D72.829 Type 2 diabetes mellitus E11.9 Mitral stenosis I05.0 Morbid obesity E66.01
== END 2022-11-17 20:27 | disposition home or self-care (01) | DRG 308 ==
LOC: ED 14:26 → 4W 16:26 → SUATTDRO 16:26 → 4W 21:59
DX: Z68.42 Body mass index [BMI] 45.0-49.9, adult; I13.0 Hypertensive heart and chronic kidney disease with heart failure and stage 1 through stage 4 chronic kidney disease, or unspecified chronic kidney disease; Z99.81 Dependence on supplemental oxygen; E11.21 Type 2 diabetes mellitus with diabetic nephropathy; I50.33 Acute on chronic diastolic (congestive) heart failure; J44.9 Chronic obstructive pulmonary disease, unspecified; N17.9 Acute kidney failure, unspecified; Z87.891 Personal history of nicotine dependence; J90 Pleural effusion, not elsewhere classified; I34.2 Nonrheumatic mitral (valve) stenosis; I48.91 Unspecified atrial fibrillation; D64.9 Anemia, unspecified; Z79.82 Long term (current) use of aspirin; N18.9 Chronic kidney disease, unspecified; E66.01 Morbid (severe) obesity due to excess calories; Z91.040 Latex allergy status; Z79.4 Long term (current) use of insulin; J96.21 Acute and chronic respiratory failure with hypoxia; Z79.84 Long term (current) use of oral hypoglycemic drugs; Z88.8 Allergy status to other drugs, medicaments and biological substances

== ENCOUNTER 2025-02-08 20:35 | Inpatient (IN) ==
[2025-02-08 20:59] LABS: Basophils # (auto) 0.07 K/uL (0.00-0.20); Basophils % (auto) 0.8 %; Eosinophils # (auto) 0.56 K/uL (0.00-0.50); Eosinophils % (auto) 6.2 %; Hemoglobin 8.8 g/dl (12.0-16.0); Immature Granulocytes # (auto) 0.04 K/uL (0.01-0.20); Immature Granulocytes % (auto) 0.4 %; Lymphocytes # (auto) 0.77 K/uL (1.20-3.40); Lymphocytes % (auto) 8.5 %; Mean Corpuscular Hemoglobin 28.6 pg (25.0-34.0); Mean Corpuscular Hgb Conc 31.4 g/dL (32.0-36.0); Mean Corpuscular Volume 90.9 fL (80.0-100.0); Mean Platelet Volume 9.5 fL (9.4-12.4); Monocytes # (auto) 0.85 K/uL (0.11-0.59); Monocytes % (auto) 9.4 %; Neutrophils # (auto) 6.73 K/uL (1.40-6.50); Neutrophils % (auto) 74.7 %; Platelet Count 294 K/uL (130-400); RDW Coefficient of Variation 16.1 % (11.5-14.5); RDW Standard Deviation 53.2 fL (36.4-46.3); Red Blood Count 3.08 M/uL (4.20-5.40); White Blood Count 9.02 K/ul (4.8-10.8)
[2025-02-08 21:17] LABS: Alanine Aminotransferase 19 U/L (7-52); Albumin Globulin Ratio 0.9 (0.9-2); Albumin Level 3.5 gm/dl (3.4-5.0); Alkaline Phosphatase 77 U/L (34-104); Anion Gap 7 (3-11); Aspartate Aminotransferase 27 U/L (13-39); BUN Creatinine Ratio 18.9 (10-20); Bilirubin,Total 0.6 mg/dl (0.2-1.0); Blood Urea Nitrogen 39 mg/dl (6-23); Calcium 9.3 mg/dl (8.6-10.3); Carbon Dioxide 24 mmol/L (21-32); Chloride 104 mmol/L (98-107); Globulin 4.1 gm/dl (2.5-4.0); Glucose 172 mg/dl (70-99(Fasting)); Potassium 4.8 mmol/L (3.5-5.1); Sodium 135 mmol/L (136-145); Total Protein 7.6 gm/dl (6.0-8.3)
--- NOTE | 2025-02-08 22:48 | Emergency Department Note ---
Impression & Plan Cellulitis of both lower extremities, Chronic kidney disease, stage 3 (moderate), UTI (urinary tract infection) ED Provider Note CHIEF COMPLAINT: Leg cellulitis HISTORY OF PRESENTING ILLNESS: This 79-year-old female patient presents to the emergency department with her daughter for evaluation of bilateral leg cellulitis from the be to her ankles. She states that her legs have been leaking for the past week. Started noticing redness around 01/21/25. She denies any fevers. She is having a burning pain to her legs. Denies chest pain or a change in her chronic SOB. The patient is on 3 L of oxygen by nasal cannula chronically and has been using her inhalers as prescribed. She has not needed any albuterol recently. She is on Eliquis. She has been taking the furosemide 60 mg QD and spironolactone 25 mg 1/2 tablet QD. She feels like she is having an increase in the fluid in her legs recently. REVIEW OF SYSTEMS: See HPI for pertinent positives and pertinent negatives. ALLERGIES: Latex, Cinnamon, Lisinopril, Losartan MEDICATIONS: See below PAST MEDICAL HISTORY: See below PHYSICAL EXAM: VITALS: Vitals are noted on the nurse's note and reviewed by myself. GENERAL: Non toxic, in no acute distress, non-diaphoretic. SKIN: Bilateral lower extremities edematous with 1+ pitting, leakage of serous fluid, and erythema of the middle portion of the bilateral tib-fib region. No obvious abscess present. No purulent discharge. The patient is mildly tender to palpation over the areas. Capillary refill <2 sec. EYES: PERRLA. EOMI. Conjunctivae without injection, sclerae without icterus. NOSE: Patent without discharge. MOUTH: Mucous membranes moist. Uvula midline. Airway patent. NECK: Supple without nuchal rigidity. HEART: Regular rate and rhythm without murmurs gallops or rubs. LUNGS: The patient is on oxygen by nasal cannula. Clear to auscultation bilaterally without wheezes, rales or rhonchi. No retractions or accessory muscle use. ABDOMEN: Positive bowel sounds x 4. Normal tympanic percussion. Soft, nontender to palpation. No masses or hepatosplenomegaly. Cedillo sign negative. No CVA tenderness. No guarding, rigidity, or rebound tenderness. No focal RLQ or LLQ tenderness. MUSCULOSKELETAL: See skin exam. No tenderness to palpation of the bony areas of the bilateral lower extremities. Dorsalis pedis and posterior tibial pulse 2+. Normal sensation to light and sharp touch of the bilateral lower extremities. NEURO: Patient was alert and oriented. No focal neurological deficits. DIFFERENTIAL DIAGNOSIS: Differential diagnosis includes cellulitis, abscess, MRSA infection, DVT, necrotizing fasciitis, dermatitis, drug eruption, allergic reaction, as well as other pathologies. ED COURSE AND MEDICAL DECISION MAKING: HISTORY FROM INDEPENDENT HISTORIAN: Additional history obtained from the patient's daughter. MEDICATIONS GIVEN: Rocephin 2 g IV. Daptomycin 675 mg IV. MONITOR: Continuous news writer: Order was placed for continuous news writer. Patient was placed on the news writer and continuous pulse ox. Patient was noted to be in normal sinus rhythm at an initial rate of 88 bpm per my interpretation. INTERPRETATION OF LABS: I interpreted the labs with full lab results as below in the lab section of this note. Laboratory results pertinent to the emergent complaint are discussed in the MDM section below. The patient was advised to follow up with their PCP and/or specialist(s) for further outpatient monitoring and management of any abnormal results. INTERPRETATION OF IMAGING: Imaging studies were interpreted by myself and read by radiology as per the imaging section of this note. The patient was advised to follow up with their PCP and/or specialist(s) for further outpatient management of any non-emergent abnormal findings. Chest x-ray with central vascular congestion and increased interstitial opacities which correlates with interstitial pulmonary edema. Likely small pleural effusions. Venous Doppler of the bilateral lower extremities was negative for DVT. CHRONIC MEDICAL/SOCIAL CONDITIONS AFFECTING CARE: CHF, chronic kidney disease CONSULTATIONS: On-call hospitalist MDM SUMMARY: The patient was seen during a time of extreme volume and extreme acuity. Nursing triage protocols were initiated with IV lock, labs, and/or imaging studies conducted by protocol in the triage area. The patient was examined by myself once they were taken back to an exam room. The patient started with redness to her bilateral lower extremities on 01/21/2025. Over the past week she has noticed some leaking of fluid from the legs. Tonight she had increased swelling and increased discomfort and her daughter brought her to the ER. The patient is concerned for cellulitis. IV fluids were not given due to the patient's history of CHF and chronic kidney disease as well as bilateral lower extremity edema and congestive changes seen on her chest x-ray. White blood cell count normal at 9.02. Hemoglobin low at 8.8. Platelet count normal at 294. PT 12.2, but other coags are normal. Sodium 135, BUN 39, creatinine 2.06 and glucose 172, but BMP otherwise without concerning abnormalities. Lactate and procalcitonin were normal. Magnesium normal. High-sensitivity troponin elevated at 18.2. BNP elevated at 620. Urinalysis appears consistent with UTI with urine culture pending. Blood cultures are still pending. Chest x-ray with central vascular congestion and increased interstitial opacities which correlates with interstitial pulmonary edema. Likely small pleural effusions. Venous Doppler of the bilateral lower extremities was negative for DVT. I had a meaningful discussion about this patient with Dr. Liang who agrees with my assessment and the treatment plan. The patient has bilateral lower extremity cellulitis with UTI. The patient is on diuretics for CHF and swelling of her bilateral lower extremities, but she also has chronic kidney disease which makes adjustment of her diuretics somewhat difficult. Therefore, we feel the patient requires admission for further evaluation and treatment. After blood cultures were obtained, the patient was given IV Rocephin and IV daptomycin. I spoke with the on-call hospitalist who agreed to admit the patient for further evaluation and treatment. Please refer to their dictation for further details. The patient's care was transferred in stable condition. DIAGNOSIS: Bilateral lower extremity cellulitis UTI Chronic kidney disease Past Med/Surg History Problem List (Updated 02/09/25 @ 07:24 by Nathalia Moran PA-C) UTI (urinary tract infection) (Acute) Cellulitis of both lower extremities (Acute) Cellulitis Chronic kidney disease, stage 3 (moderate) (Acute) Anemia Heart failure with preserved ejection fraction Atrial fibrillation Hypertension Diabetic nephropathy DM (diabetes mellitus), type 2, uncontrolled, with renal complications Chronic venous insufficiency Asthma Albuminuria COPD (chronic obstructive pulmonary disease) Obesity Chronic respiratory failure with hypoxia Lower extremity edema LVH (left ventricular hypertrophy) Mitral stenosis Mitral regurgitation Multiple pulmonary nodules Morbid obesity Type 2 diabetes mellitus Mixed restrictive and obstructive lung disease Asthma-COPD overlap syndrome Leukocytosis Medical History Hypervitaminosis D Hypercalcemia Carpal tunnel syndrome of right wrist Uncontrolled type 2 diabetes mellitus Surgical History Status post surgery surgical S/P tonsillectomy S/P tubal ligation S/P appendectomy S/P cholecystectomy H/O: hysterectomy still has ovaries. secondary to DUB/prolapse Family History Mother Osteoporosis Hypertension Bladder cancer Father Heart disease H/O heart bypass surgery Son Dissecting AAA (abdominal aortic aneurysm) Denies family history of Ovarian cancer Prostate cancer Myocardial infarction Breast cancer Colorectal cancer Social History Smoking Status: Former smoker Tobacco Type: Cigarettes Age Started Using Tobacco: 9; Age Quit Using Tobacco: 74; packs per day: 0.5; Second Hand Exposure: No; Do You Dip or Chew Tobacco: No; Hx Alcohol Use: Yes Alcohol type: beer Hx Substance Use: No Preferred Language: Ukrainian Communication Ability: Effective Visual Impairment: No Limitations Hearing Ability: Normal Music Artist Required: No Beliefs That Will Affect Care: None marital status: / marital status details: lost January 2020 Current Living Situation: Alone current occupational status: retired 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 Other Information That Helps Us Care for You: No Feels Safe at Home: Yes Safety Concerns: Feels Safe At This Time Childhood Exposure to Second-Hand Smoke: Yes Diet: regular Diet Comment: regular caffeine: Yes (coffee, 20 oz a day) during the past year weight has: remained stable Dental Care, Regularly: Yes Physical Activity Frequency: Does not Exercise Seatbelt Use: always Sunscreen Use: Yes Assistive Devices: Glasses and Walker Allergies Allergies Allergy/AdvReac Type Severity Reaction Status Date / Time latex Allergy Intermediate Rash Verified 02/09/25 02:11 cinnamon AdvReac Intermediate Hematuria Verified 02/09/25 02:11 lisinopril AdvReac Intermediate Cough Verified 02/09/25 02:11 losartan AdvReac Intermediate Skin Verified 02/09/25 02:11 crawling sensation Home Meds Home Medications Medication Instructions Recorded Confirmed ascorbic acid (vitamin C) 1,000 mg 1,000 mg PO BID 05/22/19 02/09/25 tablet lancets 28 gauge (Prodigy Lancets) #25 ea 05/22/19 12/28/24 vitamin B complex 1 tab PO QAM 09/21/19 02/09/25 fish, borage, flaxseed oils-omega 0 cap PO UNKNOWN 11/12/22 02/09/25 3,6,9 cb #1 400 mg-400 mg-400 mg cap ([place] 3-6-9 Complex) Portable Oxygen 12/24/22 12/28/24 cyanocobalamin (vitamin B-12) 1,000 mcg sublingual DAILY 12/28/24 02/09/25 1,000 mcg sublingual tablet furosemide 40 mg tablet 60 mg PO DAILY 02/09/25 02/09/25 Previous Rx's Medication Instructions Recorded albuterol sulfate 90 mcg/actuation 2 puff inhalation Q6H PRN 11/28/21 aerosol inhaler Shortness Of Breath Or Wheezing #18 grams blood sugar diagnostic (Prodigy No #400 ea 03/20/24 Coding strips) blood-glucose meter (Prodigy #1 ea 03/20/24 Autocode Meter kit) metoprolol succinate 200 mg 200 mg PO DAILY #90 tabs 06/13/24 tablet,extended release 24 hr insulin NPH isoph U-100 human 100 30 unit (0.3 mL) subcut DAILY #30 08/16/24 unit/mL (3 mL) subcutaneous pen mL (Humulin N NPH U-100 Insulin KwikPen) tiotropium bromide 2.5 2 inh inhalation QAM #12 grams 08/17/24 mcg/actuation mist for inhalation (Spiriva Respimat) fluticasone 250 mcg-salmeterol 50 1 inh inhalation Q12H #180 ea 09/15/24 mcg/dose blistr powdr for inhalation (Advair Diskus) apixaban 5 mg tablet (Eliquis) 5 mg PO BID 90 days #180 tabs 11/24/24 spironolactone 25 mg tablet 12.5 mg (1/2 x 25 mg) PO DAILY #90 11/27/24 tabs semaglutide 1 mg/dose (4 mg/3 mL) 1 mg (0.75 mL) subcut Q7D #9 mL 12/13/24 subcutaneous pen injector (Ozempic) Results & Data (ED) Vital Signs Vital Signs - 24 hr 02/08/25 20:40 02/08/25 21:49 02/08/25 21:55 Temperature 36.6 C Temperature Source Oral Pulse Rate 124 H 105 H Pulse Rate [Apical] 104 H Pulse Rate from SpO2 Sensor Pulse Rhythm [Apical] Pulse Strength [Apical] Respiratory Rate 22 22 Respiratory Effort / Characteristics Non-Labored Spontaneous Respiratory Depth Normal Respiratory Pattern Blood Pressure 153/80 H Blood Pressure [Right Arm] 170/101 H Blood Pressure Mean 104 Blood Pressure Mean [Right Arm] 124 Blood Pressure Position [Right Arm] Pulse Oximetry 92 98 Oxygen Delivery Method Nasal Cannula Nasal Cannula Oxygen Flow Rate 3 3 Sepsis Recent Fever Within 48 Hours No Sepsis New/Unexplained Change in Mental Status No Sepsis Action Taken by Nursing No Action Required 02/08/25 23:06 02/09/25 00:03 02/09/25 01:00 Temperature Temperature Source Pulse Rate 102 H 101 H 89 Pulse Rate [Apical] Pulse Rate from SpO2 Sensor 100 H 98 H 89 Pulse Rhythm [Apical] Pulse Strength [Apical] Respiratory Rate 22 29 H 17 Respiratory Effort / Characteristics Respiratory Depth Respiratory Pattern Blood Pressure 127/87 157/89 H Blood Pressure [Right Arm] Blood Pressure Mean 100 111 Blood Pressure Mean [Right Arm] Blood Pressure Position [Right Arm] Pulse Oximetry 96 100 97 Oxygen Delivery Method Nasal Cannula Nasal Cannula Nasal Cannula Oxygen Flow Rate 3 3 3 Sepsis Recent Fever Within 48 Hours Sepsis New/Unexplained Change in Mental Status Sepsis Action Taken by Nursing 02/09/25 01:38 02/09/25 02:00 02/09/25 02:30 Temperature Temperature Source Pulse Rate 87 91 H 88 Pulse Rate [Apical] Pulse Rate from SpO2 Sensor Pulse Rhythm [Apical] Pulse Strength [Apical] Respiratory Rate 24 19 Respiratory Effort / Characteristics Respiratory Depth Respiratory Pattern Blood Pressure 90/51 L Blood Pressure [Right Arm] Blood Pressure Mean 60 Blood Pressure Mean [Right Arm] Blood Pressure Position [Right Arm] Pulse Oximetry 99 97 Oxygen Delivery Method Nasal Cannula Nasal Cannula Oxygen Flow Rate 3 3 Sepsis Recent Fever Within 48 Hours Sepsis New/Unexplained Change in Mental Status Sepsis Action Taken by Nursing 02/09/25 03:00 Temperature Temperature Source Pulse Rate Pulse Rate [Apical] 95 H Pulse Rate from SpO2 Sensor Pulse Rhythm [Apical] Regular Pulse Strength [Apical] Normal Respiratory Rate 17 Respiratory Effort / Characteristics Non-Labored Respiratory Depth Normal Respiratory Pattern Regular Blood Pressure Blood Pressure [Right Arm] 125/76 Blood Pressure Mean Blood Pressure Mean [Right Arm] 92 Blood Pressure Position [Right Arm] Sitting Pulse Oximetry 97 Oxygen Delivery Method Room Air Oxygen Flow Rate Sepsis Recent Fever Within 48 Hours Sepsis New/Unexplained Change in Mental Status Sepsis Action Taken by Nursing Laboratory Data 02/08/25 20:47 02/09/25 06:07 Lab Results 02/08/25 02/08/25 02/08/25 Range/Units 20:47 23:20 23:32 WBC 9.02 (4.8-10.8) K/ul RBC 3.08 L (4.20-5.40) M/uL Hgb 8.8 L (12.0-16.0) g/dl Hct 28.0 L (37.0-47.0) % MCV 90.9 (80.0-100.0) fL MCH 28.6 (25.0-34.0) pg MCHC 31.4 L (32.0-36.0) g/dL RDW Std Deviation 53.2 H (36.4-46.3) fL RDW Coeff of Dee 16.1 H (11.5-14.5) % Plt Count 294 (130-400) K/uL MPV 9.5 (9.4-12.4) fL Immature Gran % (Auto) 0.4 % Neut % (Auto) 74.7 % Lymph % (Auto) 8.5 % Barren % (Auto) 9.4 % Eos % (Auto) 6.2 % Baso % (Auto) 0.8 % Neut # (Auto) 6.73 H (1.40-6.50) K/uL Lymph # (Auto) 0.77 L (1.20-3.40) K/uL Barren # (Auto) 0.85 H (0.11-0.59) K/uL Eos # (Auto) 0.56 H (0.00-0.50) K/uL Baso # (Auto) 0.07 (0.00-0.20) K/uL Immature Gran # (Auto) 0.04 (0.01-0.20) K/uL PT 12.2 H (9.0-12.0) Seconds INR 1.1 (0.9-1.1) APTT 28 (21-31) Seconds PTT Ratio 1.0 Sodium 135 L (136-145) mmol/L Potassium 4.8 (3.5-5.1) mmol/L Chloride 104 (98-107) mmol/L Carbon Dioxide 24 (21-32) mmol/L Anion Gap 7 (3-11) BUN 39 H (6-23) mg/dl Creatinine 2.06 H (0.6-1.2) mg/dl Est Cr Clr Drug Dosing Not Reportable eGFR 24.08 BUN/Creatinine Ratio 18.9 (10-20) Glucose 172 H (70-99(Fasting)) mg/dl Lactate 1.7 (0.4-2.0) mmol/L Calcium 9.3 (8.6-10.3) mg/dl Magnesium 2.1 (1.7-2.4) mg/dl Total Bilirubin 0.6 (0.2-1.0) mg/dl AST 27 (13-39) U/L ALT 19 (7-52) U/L Alkaline Phosphatase 77 (34-104) U/L Troponin I High Sens 18.2 H (0-14) pg/ml B-Natriuretic Peptide 620 H (0-100) pg/ml Total Protein 7.6 (6.0-8.3) gm/dl Albumin 3.5 (3.4-5.0) gm/dl Globulin 4.1 H (2.5-4.0) gm/dl Albumin/Globulin Ratio 0.9 (0.9-2) Procalcitonin < 0.02 (0-0.5) ng/ml Urine Color Dark Yellow Urine Appearance Turbid A (Clear) Urine pH 5.5 (4.5-7.5) Ur Specific [place] 1.016 (1.000-1.030) Urine Protein 2+ H (Negative) Urine Glucose (UA) Negative (Negative) Urine Ketones Trace H (Negative) Urine Blood 1+ H (Negative) Urine Nitrite Positive A (Negative) Urine Bilirubin Negative (Negative) Urine Urobilinogen Negative (Negative) Ur Leukocyte Esterase 3+ H (Negative) Urine WBC (Auto) >50 H (0-5) /hpf Urine RBC (Auto) 3-5 H (0-2) /hpf U Hyaline Cast (Auto) 3-5 H (0-2) /lpf U Epithel Cells (Auto) 0-2 (0-2) /hpf Urine Bacteria (Auto) 4+ H (None Seen) Administered Medications Discontinued Medications Ceftriaxone Sodium (Rocephin) 2,000 mg in 50 mls @ 100 mls/hr IV NOW STA Stop: 02/09/25 03:01 Last Infusion: 02/09/25 03:57 Dose: Infused Documented By: Admin: 02/09/25 02:44 Dose: 100 mls/hr Documented By: STEVEN Daptomycin 675 mg/ Syringe 13.5 mls @ 6.75 mls/min IV NOW ONE; Protocol Stop: 02/09/25 02:50 Last Admin: 02/09/25 03:57 Dose: 6.75 mls/min Documented By: BRADFORD Acetaminophen (Ofirmev) 1,000 mg in 100 mls @ 400 mls/hr IV NOW STA Stop: 02/09/25 05:14 Last Infusion: 02/09/25 05:24 Dose: Infused Documented By: Admin: 02/09/25 05:06 Dose: 400 mls/hr Documented By: BRADFORD Imaging Data Radiologist's Impression: Chest X-Ray 02/08/25 23:04 Exam(s): XR CXR 1 VIEW EXAM: XR Chest, 1 View CLINICAL HISTORY: Reason for exam: Eval CHF, SOB. TECHNIQUE: Frontal view of the chest. COMPARISON: XR Chest dated 11/15/2022 FINDINGS: Lungs: Central vascular congestion and increased interstitial opacities. Pleural space: Likely small pleural effusions. No pneumothorax. Heart: Heart size upper normal, stable. No cardiomegaly. Mediastinum: Unremarkable. Normal mediastinal contour. Bones/joints: Unremarkable. No acute fracture. IMPRESSION: 1. Central vascular congestion and increased interstitial opacities. Correlates with interstitial pulmonary edema. 2. Likely small pleural effusions. Electronically signed by: Atul Mcginnis M.D. 02/09/25 00:52 AM Venous Doppler Study 02/08/25 23:04 EXAM: US venous doppler LE CLINICAL HISTORY: Bilateral leg swelling/red/pain - eval DVT TECHNIQUE: Grayscale ultrasound, with and without compression, and color Doppler spectral waveform analysis were performed of the deep veins of the bilateral lower extremities from the level of the common femoral veins to the level of the popliteal veins. The posterior tibial and peroneal veins were also scanned. COMPARISON: None. FINDINGS: Bilateral external iliac, common femoral veins, superficial and femoral veins and popliteal veins are compressible and opacify at color Doppler evaluation with no evidence of deep vein thrombosis. There is no evidence of DVT in the visualized portions of the posterior tibial and peroneal veins. IMPRESSION: 1. Negative for deep vein thrombosis. Electronically signed by Bennett Petersen 02-09-2025 02:11 AM Discharge Plan Visit Data Chief Complaint: Infection Stated Complaint: CELLULITIS BILATERAL LEGS ED Provider: Abisai Liang ED Midlevel Provider: Nathalia Moran Discharge Problem: Cellulitis of both lower extremities, Chronic kidney disease, stage 3 (moderate), UTI (urinary tract infection) Patient Disposition: Admitted As Inpatient Condition: Fair Discharge Instructions Interventions: ED Discharge Assessment Last Done: 02/09/25 05:04 Discharge Problem: Chronic kidney disease, stage 3 (moderate) Qualifiers: Chronic kidney disease stage 3 subtype: unspecified whether 3a or 3b Qualified Code(s): N18.30 - Chronic kidney disease, stage 3 unspecified UTI (urinary tract infection) Qualifiers: Urinary tract infection type: acute cystitis Hematuria presence: without hematuria Qualified Code(s): N30.00 - Acute cystitis without hematuria
[2025-02-08 23:39] LABS: Magnesium 2.1 mg/dl (1.7-2.4)
[2025-02-08 23:42] LABS: Appearance Urine Turbid (Clear); Bacteria Urine Automated 4+ (None Seen); Bilirubin Urine Negative (Negative); Blood Urine 1+ (Negative); Color Urine Dark Yellow; Epithelial Cell Urine Auto 0-2 /hpf (0-2); Glucose Urine UA Negative (Negative); Ketones Urine Trace (Negative); Leukocyte Esterase Urine 3+ (Negative); Nitrite Urine Positive (Negative); Protein Urine 2+ (Negative); Specific Gravity Urine 1.016 (1.000-1.030); Urobilinogen Urine Negative (Negative); WBC Urine Automated >50 /hpf (0-5); pH Urine 5.5 (4.5-7.5)
[2025-02-08 23:47] LABS: Troponin I High Sensitivity 18.2 pg/ml (0-14)
[2025-02-09 00:18] LABS: INR 1.1 (0.9-1.1); Partial Thromboplastin Time 28 Seconds (21-31); Prothrombin Time 12.2 Seconds (9.0-12.0)
--- NOTE | 2025-02-09 00:53 | XRay Report ---
Exam(s): XR CXR 1 VIEW EXAM: XR Chest, 1 View CLINICAL HISTORY: Reason for exam: Eval CHF, SOB. TECHNIQUE: Frontal view of the chest. COMPARISON: XR Chest dated 11/15/2022 FINDINGS: Lungs: Central vascular congestion and increased interstitial opacities. Pleural space: Likely small pleural effusions. No pneumothorax. Heart: Heart size upper normal, stable. No cardiomegaly. Mediastinum: Unremarkable. Normal mediastinal contour. Bones/joints: Unremarkable. No acute fracture. IMPRESSION: 1. Central vascular congestion and increased interstitial opacities. Correlates with interstitial pulmonary edema. 2. Likely small pleural effusions. Electronically signed by: Atul cMginnis M.D. 02/09/25 00:52 AM
--- NOTE | 2025-02-09 02:11 | Ultrasound Report ---
EXAM: US venous doppler LE BI CLINICAL HISTORY: Bilateral leg swelling/red/pain - eval DVT TECHNIQUE: Grayscale ultrasound, with and without compression, and color Doppler spectral waveform analysis were performed of the deep veins of the bilateral lower extremities from the level of the common femoral veins to the level of the popliteal veins. The posterior tibial and peroneal veins were also scanned. COMPARISON: None. FINDINGS: Bilateral external iliac, common femoral veins, superficial and femoral veins and popliteal veins are compressible and opacify at color Doppler evaluation with no evidence of deep vein thrombosis. There is no evidence of DVT in the visualized portions of the posterior tibial and peroneal veins. IMPRESSION: 1. Negative for deep vein thrombosis. Electronically signed by Bennett Petersen 02-09-2025 02:11 AM
[2025-02-09] MEDS: cefTRIAXone SODIUM 2,000 MG/50 ML BAG IV STA (02:44)
--- NOTE | 2025-02-09 03:18 | History & Physical Report ---
Date of Service February 09, 2025 Assessment & Plan (1) Acute on chronic heart failure with preserved ejection fraction: (2) Cellulitis: (3) COPD (chronic obstructive pulmonary disease): (4) Atrial fibrillation: (5) Hypertension: (6) Chronic kidney disease, stage 3 (moderate): Plan 79-year-old female with history of heart failure with preserved EF, diabetes, hypertension, COPD with chronic hypoxic respiratory failure on 3 L of home oxygen [id number], atrial fibrillation presenting with worsening bilateral lower extremity edema with drainage and worsening warmth, redness, tenderness of her lower extremities. Suspect volume overload secondary to acute on chronic heart failure with preserved EF. Patient dry weight reported to be approximately 200 pounds, she weighed in today at 209 pounds. Reports that her breathing is stable. #Acute on chronic heart failure with preserved EF admit to medical with telemetry Diuresis with Lasix 60 mg IV twice daily Monitor strict intake and output Monitor daily standing weights Monitor BMP twice daily. Patient with CKD with baseline creatinine of approximately 2. Will need cautious diuresis with attention to renal function as well as electrolytes. Will continue spironolactone 12.5 mg p.o. daily for now. Of note, potassium is borderline high at 4.8. Will need to be monitored #Cellulitispatient with worsening pain, redness and tenderness of bilateral lower extremities. Left more so than right. Suspect this is mostly secondary to her worsening bilateral lower extremity edema Will initiate empiric antibiotics with ceftriaxone and daptomycin Continue to monitor for improvement #COPDpatient reports stable respiratory status with no worsening cough, shortness of breath Continue Spiriva Continue Advair Albuterol as needed #atrial fibrillation Continue apixaban 5 mg p.o. twice daily Continue metoprolol 200 mg p.o. daily #Hypertensionblood pressure goal Continue metoprolol 200 mg p.o. daily Continue to monitor #Chronic kidney diseasebaseline creatinine of approximately 2 Avoid nephrotoxic agents Renal dosing were needed Cautious diuresis as above with twice daily BMPs to monitor renal function and electrolytes History of Present Illness Chief Complaint: worsening lower extremity edema, redness Primary Care Provider: DO Mara Billingsley Stacy Is a very pleasant 79-year-old female with history of diabetes, heart failure with preserved EF, atrial fibrillation, hypertension, COPD and CKD with baseline creatinine of approximately 2 presenting with several weeks of worsening bilateral lower extremity edema. Patient reports that her legs started swelling before Easter and have been progressively worsening. This week they began to ooze clear fluid. They also became more red and tender to the touch. Patient weighs 209 pounds today. Dry weight reported to be approximately 200 pounds. She has ongoing orthopnea as well as stable shortness of breath. Otherwise, denies chest pain, palpitations, dizziness, syncope, nausea, vomiting, abdominal pain. Denies fever, chills. She is reporting some increased urinary frequency and urgency as well ongoing for the last several days In the ER she is afebrile, hemodynamically stable, stable respiratory status on her baseline 3 L of oxygen ER course: Ceftriaxone Daptomycin Allergies Allergy/AdvReac Type Severity Reaction Status Date / Time latex Allergy Intermediate Rash Verified 02/09/25 02:11 cinnamon AdvReac Intermediate Hematuria Verified 02/09/25 02:11 lisinopril AdvReac Intermediate Cough Verified 02/09/25 02:11 losartan AdvReac Intermediate Skin Verified 02/09/25 02:11 crawling sensation Home Medications Medication Instructions Recorded Confirmed Type ascorbic acid (vitamin C) 1,000 mg 1,000 mg PO BID 05/22/19 02/09/25 History tablet lancets 28 gauge ([facility] Lancets) #25 ea 05/22/19 12/28/24 History vitamin B complex 1 tab PO QAM 09/21/19 02/09/25 History albuterol sulfate 90 mcg/actuation 2 puff inhalation Q6H PRN 11/28/21 02/09/25 Rx aerosol inhaler Shortness Of Breath Or Wheezing #18 grams fish, borage, flaxseed oils-omega 0 cap PO UNKNOWN 11/12/22 02/09/25 History 3,6,9 cb #1 400 mg-400 mg-400 mg cap ([place] 3-6-9 Complex) Portable Oxygen 12/24/22 12/28/24 History blood sugar diagnostic ([facility] No #400 ea 03/20/24 12/28/24 Rx Coding strips) blood-glucose meter (27 bardsy #1 ea 03/20/24 12/28/24 Rx Autocode Meter kit) metoprolol succinate 200 mg 200 mg PO DAILY #90 tabs 06/13/24 02/09/25 Rx tablet,extended release 24 hr insulin NPH isoph U-100 human 100 30 unit (0.3 mL) subcut DAILY #30 08/16/24 02/09/25 Rx unit/mL (3 mL) subcutaneous pen mL (Humulin N NPH U-100 Insulin KwikPen) tiotropium bromide 2.5 2 inh inhalation QAM #12 grams 08/17/24 02/09/25 Rx mcg/actuation mist for inhalation (Spiriva Respimat) fluticasone 250 mcg-salmeterol 50 1 inh inhalation Q12H #180 ea 09/15/24 02/09/25 Rx mcg/dose blistr powdr for inhalation (Advair Diskus) apixaban 5 mg tablet (Eliquis) 5 mg PO BID 90 days #180 tabs 11/24/24 02/09/25 Rx spironolactone 25 mg tablet 12.5 mg (1/2 x 25 mg) PO DAILY #90 11/27/24 02/09/25 Rx tabs semaglutide 1 mg/dose (4 mg/3 mL) 1 mg (0.75 mL) subcut Q7D #9 mL 12/13/24 02/09/25 Rx subcutaneous pen injector (Ozempic) cyanocobalamin (vitamin B-12) 1,000 mcg sublingual DAILY 12/28/24 02/09/25 History 1,000 mcg sublingual tablet furosemide 40 mg tablet 60 mg PO DAILY 02/09/25 02/09/25 History Past Med/Surg History Problem List (Updated 02/09/25 @ 04:20 by Alysha Jackman DO) Cellulitis Chronic kidney disease, stage 3 (moderate) Anemia Heart failure with preserved ejection fraction Atrial fibrillation Hypertension Diabetic nephropathy DM (diabetes mellitus), type 2, uncontrolled, with renal complications Chronic venous insufficiency Asthma Albuminuria COPD (chronic obstructive pulmonary disease) Obesity Chronic respiratory failure with hypoxia Lower extremity edema LVH (left ventricular hypertrophy) Mitral stenosis Mitral regurgitation Multiple pulmonary nodules Morbid obesity Type 2 diabetes mellitus Mixed restrictive and obstructive lung disease Asthma-COPD overlap syndrome Leukocytosis Medical History Hypervitaminosis D Hypercalcemia Carpal tunnel syndrome of right wrist Uncontrolled type 2 diabetes mellitus Surgical History Status post surgery surgical S/P tonsillectomy S/P tubal ligation S/P appendectomy S/P cholecystectomy H/O: hysterectomy still has ovaries. secondary to DUB/prolapse Family History Mother Osteoporosis Hypertension Bladder cancer Father Heart disease H/O heart bypass surgery Son Dissecting AAA (abdominal aortic aneurysm) Denies family history of Ovarian cancer Prostate cancer Myocardial infarction Breast cancer Colorectal cancer Social History Smoking Status: Former smoker Tobacco Type: Cigarettes Age Started Using Tobacco: 9; Age Quit Using Tobacco: 74; packs per day: 0.5; Second Hand Exposure: No; Do You Dip or Chew Tobacco: No; Hx Alcohol Use: No Hx Substance Use: No Preferred Language: Armenian Communication Ability: Effective Visual Impairment: No Limitations Hearing Ability: Normal Grocery Packer Required: No Beliefs That Will Affect Care: None marital status: / marital status details: lost January 2020 Current Living Situation: Alone current occupational status: 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 Feels Safe at Home: Yes Childhood Exposure to Second-Hand Smoke: Yes Diet: regular Diet Comment: regular caffeine: Yes (coffee, 20 oz a day) during the past year weight has: remained stable Dental Care, Regularly: Yes Physical Activity Frequency: Does not Exercise Seatbelt Use: always Sunscreen Use: Yes Assistive Devices: Oxygen - Continuous and Walker Review of Systems Review of Systems: All systems reviewed & are unremarkable except as noted in HPI & below Physical Exam Physical Exam: General: patient resting comfortably, NAD, non-toxic in appearance, AA&O x 4 Skin: Skin on lower extremities is red, some serous drainage present right lower extremity more so than left, no lymphangitic streaking, crepitus or bullae HEENT: NC/AT, PERRL, EOMI, anicteric sclera, conjunctiva without injection, external ear normal to inspection and nontender, nares patent, moist mucus membranes, dentition intact, no oropharyngeal lesions, neck supple, trachea midline, no LAD, no thyromegaly, no JVD Heart: +S1/S2, irregularly irregular, 3/6 systolic ejection murmur at the right second intercostal space, no rubs/gallops Lungs: equal air entry bilaterally, crackles present in bilateral bases Abd: +BS, soft, NT/ND, no masses/organomegaly/ascites Ext: warm, 2+ pulses in UE/LE bilaterally, 2+ edema of bilateral lower ext remities with warmth, redness and tenderness of the skin Neuro: nonfocal, patient AA&O x 4, speech intact, no facial droop, moving all extremities on command with equal strength 5/5 Results & Data Results & Data Vital Signs (Past 12 Hours) Vital Signs Temp Pulse Pulse Resp BP BP Pulse Ox 02/09/25 02:30 88 19 97 02/09/25 02:00 91 H 24 90/51 L 99 02/09/25 01:38 87 02/09/25 01:00 89 17 157/89 H 97 02/09/25 00:03 101 H 29 H 100 02/08/25 23:06 102 H 22 127/87 96 02/08/25 21:55 104 H 22 170/101 H 98 02/08/25 21:49 105 H 02/08/25 20:40 36.6 C 124 H 22 153/80 H 92 O2 Del Method O2 Flow Rate 02/09/25 02:30 Nasal Cannula 3 02/09/25 02:00 Nasal Cannula 3 02/09/25 01:38 02/09/25 01:00 Nasal Cannula 3 02/09/25 00:03 Nasal Cannula 3 02/08/25 23:06 Nasal Cannula 3 02/08/25 21:55 Nasal Cannula 3 02/08/25 21:49 02/08/25 20:40 Nasal Cannula 3 Laboratory Results Laboratory Results WBC 9.02 K/ul (4.8-10.8) 02/08/25 20:47 RBC 3.08 M/uL (4.20-5.40) L 02/08/25 20:47 Hgb 8.8 g/dl (12.0-16.0) L 02/08/25 20:47 Hct 28.0 % (37.0-47.0) L 02/08/25 20:47 MCV 90.9 fL (80.0-100.0) 02/08/25 20:47 MCH 28.6 pg (25.0-34.0) 02/08/25 20:47 MCHC 31.4 g/dL (32.0-36.0) L 02/08/25 20:47 RDW Std Deviation 53.2 fL (36.4-46.3) H 02/08/25 20:47 RDW Coeff of Dee 16.1 % (11.5-14.5) H 02/08/25 20:47 Plt Count 294 K/uL (130-400) 02/08/25 20:47 MPV 9.5 fL (9.4-12.4) 02/08/25 20:47 Immature Gran % (Auto) 0.4 % 02/08/25 20:47 Neut % (Auto) 74.7 % 02/08/25 20:47 Lymph % (Auto) 8.5 % 02/08/25 20:47 [place] % (Auto) 9.4 % 02/08/25 20:47 Eos % (Auto) 6.2 % 02/08/25 20:47 Baso % (Auto) 0.8 % 02/08/25 20:47 Neut # (Auto) 6.73 K/uL (1.40-6.50) H 02/08/25 20:47 Lymph # (Auto) 0.77 K/uL (1.20-3.40) L 02/08/25 20:47 [place] # (Auto) 0.85 K/uL (0.11-0.59) H 02/08/25 20:47 Eos # (Auto) 0.56 K/uL (0.00-0.50) H 02/08/25 20:47 Baso # (Auto) 0.07 K/uL (0.00-0.20) 02/08/25:47 Immature Gran # (Auto) 0.04 K/uL (0.01-0.20) 02/08/25 20:47 PT 12.2 Seconds (9.0-12.0) H 02/08/25 20:47 INR 1.1 (0.9-1.1) 02/08/25: APTT 28 Seconds (21-31) 02/08/25 20:47 PTT Ratio 1.0 02/08/25 20:47 Sodium 135 mmol/L (136-145) L 02/08/25: Potassium 4.8 mmol/L (3.5-5.1) 02/08/25 20:47 Chloride 104 mmol/L (98-107) 02/08/25 20:47 Carbon Dioxide 24 mmol/L (21-32) 02/08/25 20:47 Anion Gap 7 (3-11) 02/08/25 20:47 BUN 39 mg/dl (6-23) H 02/08/25 20:47 Creatinine 2.06 mg/dl (0.6-1.2) H 02/08/25 20:47 Est Cr Clr Drug Dosing Not Reportable 02/08/25 20:47 eGFR 24.08 02/08/25 20:47 BUN/Creatinine Ratio 18.9 (10-20) 02/08/25 20:47 Glucose 172 mg/dl (70-99(Fasting)) H 02/08/25 20:47 Lactate 1.7 mmol/L (0.4-2.0) 02/08/25 23:32 Calcium 9.3 mg/dl (8.6-10.3) 02/08/25 20:47 Magnesium 2.1 mg/dl (1.7-2.4) 02/08/25 20:47 Total Bilirubin 0.6 mg/dl (0.2-1.0) 02/08/25 20:47 AST 27 U/L (13-39) 02/08/25 20:47 ALT 19 U/L (7-52) 02/08/25 20:47 Alkaline Phosphatase 77 U/L (34-104) 02/08/25 20:47 Troponin I High Sens 18.2 pg/ml (0-14) H 02/08/25 20:47 B-Natriuretic Peptide 620 pg/ml (0-100) H 02/08/25 20:47 Total Protein 7.6 gm/dl (6.0-8.3) 02/08/25 20:47 Albumin 3.5 gm/dl (3.4-5.0) 02/08/25 20:47 Globulin 4.1 gm/dl (2.5-4.0) H 02/08/25 20:47 Albumin/Globulin Ratio 0.9 (0.9-2) 02/08/25 20:47 Procalcitonin < 0.02 ng/ml (0-0.5) 02/08/25 20:47 Urine Color Dark Yellow 02/08/25 23:20 Urine Appearance Turbid (Clear) A 02/08/25 23:20 Urine pH 5.5 (4.5-7.5) 02/08/25 23:20 Ur Specific [place] 1.016 (1.000-1.030) 02/08/25 23:20 Urine Protein 2+ (Negative) H 02/08/25 23:20 Urine Glucose (UA) Negative (Negative) 02/08/25 23:20 Urine Ketones Trace (Negative) H 02/08/25 23:20 Urine Blood 1+ (Negative) H 02/08/25 23:20 Urine Nitrite Positive (Negative) A 02/08/25 23:20 Urine Bilirubin Negative (Negative) 02/08/25 23:20 Urine Urobilinogen Negative (Negative) 02/08/25 23:20 Ur Leukocyte Esterase 3+ (Negative) H 02/08/25 23:20 Urine WBC (Auto) >50 /hpf (0-5) H 02/08/25 23:20 Urine RBC (Auto) 3-5 /hpf (0-2) H 02/08/25 23:20 U Hyaline Cast (Auto) 3-5 /lpf (0-2) H 02/08/25 23:20 U Epithel Cells (Auto) 0-2 /hpf (0-2) 02/08/25 23:20 Urine Bacteria (Auto) 4+ (None Seen) H 02/08/25 23:20 Impressions Chest X-Ray 02/08/25 23:04 Exam(s): XR CXR 1 VIEW EXAM: XR Chest, 1 View CLINICAL HISTORY: Reason for exam: Eval CHF, SOB. TECHNIQUE: Frontal view of the chest. COMPARISON: XR Chest dated 11/15/2022 FINDINGS: Lungs: Central vascular congestion and increased interstitial opacities. Pleural space: Likely small pleural effusions. No pneumothorax. Heart: Heart size upper normal, stable. No cardiomegaly. Mediastinum: Unremarkable. Normal mediastinal contour. Bones/joints: Unremarkable. No acute fracture. IMPRESSION: 1. Central vascular congestion and increased interstitial opacities. Correlates with interstitial pulmonary edema. 2. Likely small pleural effusions. Electronically signed by: Atul Mcginnis M.D. 02/09/25 00:52 AM Venous Doppler Study 02/08/25 23:04 EXAM: US venous doppler LE BI CLINICAL HISTORY: Bilateral leg swelling/red/pain - eval DVT TECHNIQUE: Grayscale ultrasound, with and without compression, and color Doppler spectral waveform analysis were performed of the deep veins of the bilateral lower extremities from the level of the common femoral veins to the level of the popliteal veins. The posterior tibial and peroneal veins were also scanned. COMPARISON: None. FINDINGS: Bilateral external iliac, common femoral veins, superficial and femoral veins and popliteal veins are compressible and opacify at color Doppler evaluation with no evidence of deep vein thrombosis. There is no evidence of DVT in the visualized portions of the posterior tibial and peroneal veins. IMPRESSION: 1. Negative for deep vein thrombosis. Electronically signed by Bennett Petersen 02-09-2025 02:11 AM Code Status & VTE Plan VTE Prophylaxis Plan VTE Prophylaxis will be ordered: Yes PG Care Time/CCT Total # of Minutes Spent Total Time Spent with Patient: Total time spent is greater than 50% in coordination of care (as documented) at patient's floor/unit and/or counseling patient: Coding Level of Care Code 55925 INT INP/OBS CARE 3/75MIN Diagnoses Acute on chronic heart failure with preserved ejection fraction I50.33 Cellulitis L03.90 Chronic obstructive pulmonary disease, unspecified COPD type J44.9 COPD type: unspecified COPD Atrial fibrillation, unspecified type I48.91 Atrial fibrillation type: unspecified Essential hypertension I10 Hypertension type: essential hypertension Chronic kidney disease, stage 3 (moderate) N18.30 (3) COPD (chronic obstructive pulmonary disease) COPD type: unspecified COPD Qualified Code(s): J44.9 - Chronic obstructive pulmonary disease, unspecified (4) Atrial fibrillation Atrial fibrillation type: unspecified Qualified Code(s): I48.91 - Unspecified atrial fibrillation (5) Hypertension Hypertension type: essential hypertension Qualified Code(s): I10 - Essential (primary) hypertension
[2025-02-09] MEDS: DAPTOmycin 675 MG in SYRINGE 0 ML IV ONE (03:57)
[2025-02-09] MEDS ORDERED: GLUCOSE 10 TAB/TUBE PO PRN (05:04)
[2025-02-09] MEDS ORDERED: GLUCAGON FOR INJ 1 MG VIAL SQ PRN (05:04)
[2025-02-09] MEDS ORDERED: CARBOHYDRATES FOR HYPOGLYCEMIA PO PRN (05:04)
[2025-02-09] MEDS ORDERED: ONDANSETRON INJ 2 MG/ML 2 ML VIAL IV PRN (05:04)
[2025-02-09] MEDS ORDERED: GLUCOSE 40% GEL 15 GM TUBE PO PRN (05:04)
[2025-02-09] MEDS ORDERED: ALBUTEROL HFA 8 GM INHALER INH PRN (05:04)
[2025-02-09] MEDS ORDERED: POLYETHYLENE (MIRALAX) 17 GM PACK PO PRN (05:04)
[2025-02-09] MEDS ORDERED: MELATONIN 3 MG TAB PO PRN (05:04)
[2025-02-09] MEDS ORDERED: DEXTROSE 50% 50 ML SYRINGE IV PRN (05:04)
[2025-02-09] MEDS: ACETAMINOPHEN 1,000 MG/100 ML VIAL IV STA (05:06)
[2025-02-09 07:06] LABS: BUN Creatinine Ratio 18.4 (10-20); Calcium 9.1 mg/dl (8.6-10.3); Creatinine Clr Calc Pharmacy 23.8 ml/min; Potassium 4.7 mmol/L (3.5-5.1)
[2025-02-09] MEDS: LANTUS PER UNIT CHARGE SQ SCH (08:59)
[2025-02-09] MEDS: INSULIN ASPART PER UNIT CHARGE SC SCH (08:59)
[2025-02-09] MEDS: METOPROLOL SUCC 50MG EXT REL TAB PO SCH (09:00)
[2025-02-09] MEDS: SPIRONOLACTONE 12.5 MG TAB PO SCH (09:00)
[2025-02-09] MEDS: UMECLIDINIUM BROMIDE 62.5MCG/BLISTER 7 PUFFS/INHALER INH SCH (09:00)
[2025-02-09] MEDS: FUROSEMIDE 40 MG/4 ML VIAL IV SCH (09:00)
[2025-02-09] MEDS: APIXABAN 5 MG TABLET PO SCH (09:00)
[2025-02-09] MEDS: FLUTICASONE/VILANTEROL 200/25MCG 14 PUFFS/INHALER INH SCH (09:01)
[2025-02-09] MEDS: FUROSEMIDE 40 MG/4 ML VIAL IV ONE (13:44)
--- NOTE | 2025-02-09 14:31 | Communication Note ---
Date of Service: February 09, 2025 Please refer to the H&P dictated earlier this morning for details of presentation on admission. In brief, the patient presented with worsening bilateral lower extremity swelling and redness. She also had shortness of breath. Elevated BNP 628. Chest x-ray showed interstitial pulmonary edema. She was diagnosed with CHF and was ordered 60 mg of IV Lasix. The patient tells me that she is still short of breath. She was noted to be urine incontinent and thus her urine output could not be measured. I ordered another dose of 60 mg of IV Lasix and placed a Scherer catheter to measure urine output. Will monitor for clinical improvement. I also asked the nurse to jasbir the margins of the area of redness in her legs bilaterally.
[2025-02-09 17:26] LABS: BUN Creatinine Ratio 18.2 (10-20); Calcium 9.8 mg/dl (8.6-10.3); Creatinine Clr Calc Pharmacy 23.5 ml/min; Potassium 4.6 mmol/L (3.5-5.1)
[2025-02-09] MEDS: ACETAMINOPHEN 325 MG TAB PO PRN (19:36)
[2025-02-09] MEDS: cefTRIAXone SODIUM 2,000 MG/50 ML BAG IV SCH (21:02)
[2025-02-10 07:46] LABS: Hematocrit (blood only) 26.9 % (37.0-47.0); Hemoglobin 8.4 g/dl (12.0-16.0); Mean Corpuscular Hemoglobin 28.5 pg (25.0-34.0); Mean Corpuscular Hgb Conc 31.2 g/dL (32.0-36.0); Mean Corpuscular Volume 91.2 fL (80.0-100.0); Platelet Count 285 K/uL (130-400); RDW Standard Deviation 53.6 fL (36.4-46.3); Red Blood Count 2.95 M/uL (4.20-5.40); White Blood Count 10.06 K/ul (4.8-10.8)
[2025-02-10 07:59] LABS: BUN Creatinine Ratio 16.2 (10-20); Calcium 9.3 mg/dl (8.6-10.3); Creatinine Clr Calc Pharmacy 18.4 ml/min; Potassium 4.3 mmol/L (3.5-5.1)
[2025-02-10 08:08] LABS: Troponin I High Sensitivity 36.8 pg/ml (0-14)
[2025-02-10] MEDS: FUROSEMIDE 40 MG/4 ML VIAL IV SCH (08:18)
--- NOTE | 2025-02-10 10:30 | Hospitalist Progress Note ---
Date of Service February 10, 2025 Assessment & Plan (1) Acute on chronic heart failure with preserved ejection fraction: (2) Cellulitis: (3) COPD (chronic obstructive pulmonary disease): (4) Atrial fibrillation: (5) Hypertension: (6) Chronic kidney disease, stage 3 (moderate): Plan 79-year-old female with history of heart failure with preserved EF, diabetes, hypertension, COPD with chronic hypoxic respiratory failure on 3 L of home oxygen [id number], atrial fibrillation presenting with worsening bilateral lower extremity edema with drainage and worsening warmth, redness, tenderness of her lower extremities. Suspect volume overload secondary to acute on chronic heart failure with preserved EF. Patient dry weight reported to be approximately 200 pounds, she weighed in today at 209 pounds. Reports that her breathing is stable. #Acute on chronic heart failure with preserved EF/acute hypoxic respiratory failure Diuresed well in response to Lasix 60 mg IV twice daily Clinically feeling better. Monitor strict intake and output Monitor daily standing weights Creatinine increased to 2.6 today. Intended to hold today's dose of IV Bumex. Discontinued the order at 8:50 AM. However the patient had already gotten his 9 AM dose. I will give the patient 250 cc of normal saline to compensate for the extra Bumex she got. Hold spironolactone.. Of note, potassium is borderline high at 4.8. Will need to be monitored #Cellulitispatient with worsening pain, redness and tenderness of bilateral lower extremities. Left more so than right. Suspect this is mostly secondary to her worsening bilateral lower extremity edema Improved today significantly De-escalate antibiotics Switch from IV doxycycline and ceftriaxone to cefazolin #COPDpatient reports stable respiratory status with no worsening cough, shortness of breath Continue Spiriva Continue Advair Albuterol as needed #atrial fibrillation Continue apixaban 5 mg p.o. twice daily Continue metoprolol 200 mg p.o. daily #Hypertensionblood pressure goal Continue metoprolol 200 mg p.o. daily Continue to monitor #Chronic kidney diseasebaseline creatinine of approximately 2 Avoid nephrotoxic agents Renal dosing were needed Cautious diuresis Creatinine slightly bumped to 2.6 today in response to diuresis. Patient already got IV Bumex this morning even though it was intended to be stopped. Will give the patient 250 cc normal saline to give back some fluid Monitor BMP closely Admission and Anticipated Discharge Date Admission Date: February 09, 2025 Subjective Patient says she feels much better from a breathing standpoint. Noted that she had quite a bit of urine output overnight. Her leg swelling has improved. The redness in her legs have improved as well. Review of Systems Review of Systems: All systems reviewed & are unremarkable except as noted in Subjective Physical Exam Physical Exam: General: Awake, conversant Heart: S1, S2/regular rate and rhythm, no murmur rubs or gallops Lungs: Clear to auscultation bilaterally. Normal effort Abdomen: Soft/nontender/nondistended. No hepatosplenomegaly Extremities: No clubbing/cyanosis. 2+ pitting bilateral edema. Cellulitis improving with fading redness bilaterally Behavior: Appropriate, cooperative Results & Data Results & Data Vital Signs (Past 12 Hours) Vital Signs Temp Pulse Pulse Resp BP Pulse Ox O2 Del Method 02/10/25 07:37 36.9 C 88 18 118/70 96 Room Air 02/10/25 07:07 Nasal Cannula 02/10/25 05:40 77 02/10/25 03:00 36.4 C L 76 12 106/68 99 Nasal Cannula 02/09/25 23:00 37 C 84 16 113/68 98 Nasal Cannula O2 Flow Rate 02/10/25 07:37 02/10/25 07:07 3 02/10/25 05:40 02/10/25 03:00 3 02/09/25 23:00 3 Laboratory Results Abnormal lab results 02/09/25 02/09/25 02/09/25 Range/Units 11:40 16:52 17:11 RBC (4.20-5.40) M/uL Hgb (12.0-16.0) g/dl Hct (37.0-47.0) % MCHC (32.0-36.0) g/dL RDW Std Deviation (36.4-46.3) fL RDW Coeff of Dee (11.5-14.5) % Sodium 135 L (136-145) mmol/L BUN 37 H (6-23) mg/dl Creatinine 2.03 H (0.6-1.2) mg/dl Glucose 193 H (70-99(Fasting)) mg/dl POC Glucose 132 H 219 H (70-99) mg/dl Troponin I High Sens (0-14) pg/ml 02/09/25 02/10/25 02/10/25 Range/Units 19:45 07:04 07:30 RBC 2.95 L (4.20-5.40) M/uL Hgb 8.4 L (12.0-16.0) g/dl Hct 26.9 L (37.0-47.0) % MCHC 31.2 L (32.0-36.0) g/dL RDW Std Deviation 53.6 H (36.4-46.3) fL RDW Coeff of Dee 16.0 H (11.5-14.5) % Sodium (136-145) mmol/L BUN 42 H (6-23) mg/dl Creatinine 2.60 H D (0.6-1.2) mg/dl Glucose 115 H (70-99(Fasting)) mg/dl POC Glucose 155 H (70-99) mg/dl Troponin I High Sens 36.8 H D (0-14) pg/ml 02/10/25 Range/Units 08:02 RBC (4.20-5.40) M/uL Hgb (12.0-16.0) g/dl Hct (37.0-47.0) % MCHC (32.0-36.0) g/dL RDW Std Deviation (36.4-46.3) fL RDW Coeff of Dee (11.5-14.5) % Sodium (136-145) mmol/L BUN (6-23) mg/dl Creatinine (0.6-1.2) mg/dl Glucose (70-99(Fasting)) mg/dl POC Glucose 137 H (70-99) mg/dl Troponin I High Sens (0-14) pg/ml PG Care Time/CCT Total # of Minutes Spent Total Time Spent with Patient: Total time spent is greater than 50% in coordination of care (as documented) at patient's floor/unit and/or counseling patient: Coding Level of Care Code 84292 SUB INP/OBS CARE 2/35MIN Diagnoses Acute on chronic heart failure with preserved ejection fraction I50.33 Cellulitis L03.90 Chronic obstructive pulmonary disease, unspecified COPD type J44.9 COPD type: unspecified COPD Atrial fibrillation, unspecified type I48.91 Atrial fibrillation type: unspecified Essential hypertension I10 Hypertension type: essential hypertension Chronic kidney disease, stage 3 (moderate) N18.30 Chronic kidney disease stage 3 subtype: unspecified whether 3a or 3b (3) COPD (chronic obstructive pulmonary disease) COPD type: unspecified COPD Qualified Code(s): J44.9 - Chronic obstructive pulmonary disease, unspecified (4) Atrial fibrillation Atrial fibrillation type: unspecified Qualified Code(s): I48.91 - Unspecified atrial fibrillation (5) Hypertension Hypertension type: essential hypertension Qualified Code(s): I10 - Essential (primary) hypertension (6) Chronic kidney disease, stage 3 (moderate) Chronic kidney disease stage 3 subtype: unspecified whether 3a or 3b Qualif ied Code(s): N18.30 - Chronic kidney disease, stage 3 unspecified
[2025-02-10] MEDS: SODIUM CHLORIDE 0.9% 250 ML IV SCH (11:42)
[2025-02-10] MEDS: ceFAZolin 1000MG 1,000 MG/7.5 ML SYR IV SCH ×2 (12:08→21:16)
[2025-02-10 15:39] LABS: BUN Creatinine Ratio 16.2 (10-20); Calcium 9.4 mg/dl (8.6-10.3); Creatinine Clr Calc Pharmacy 17.2 ml/min; Potassium 4.2 mmol/L (3.5-5.1)
[2025-02-10] MEDS: SODIUM CHLORIDE 0.9% 500 ML IV SCH ×2 (16:05→19:02)
[2025-02-10] MEDS ORDERED: DAPTOmycin 400 MG in SYRINGE 0 ML IV SCH (22:00)
[2025-02-10] MEDS: FLUTICASONE/VILANTEROL 200/25MCG 14 PUFFS/INHALER INH SCH (22:41)
[2025-02-11 08:31] LABS: BUN Creatinine Ratio 19.4 (10-20); Calcium 8.9 mg/dl (8.6-10.3); Potassium 3.7 mmol/L (3.5-5.1)
[2025-02-11] MEDS: FUROSEMIDE 20 MG TAB PO SCH (10:58)
--- NOTE | 2025-02-11 16:26 | Hospitalist Progress Note ---
Date of Service February 11, 2025 Assessment & Plan (1) Acute on chronic heart failure with preserved ejection fraction: (2) Cellulitis: (3) COPD (chronic obstructive pulmonary disease): (4) Atrial fibrillation: (5) Hypertension: (6) Chronic kidney disease, stage 3 (moderate): Plan 79-year-old female with history of heart failure with preserved EF, diabetes, hypertension, COPD with chronic hypoxic respiratory failure on 3 L of home oxygen [id number], atrial fibrillation presenting with worsening bilateral lower extremity edema with drainage and worsening warmth, redness, tenderness of her lower extremities. Suspect volume overload secondary to acute on chronic heart failure with preserved EF. Patient dry weight reported to be approximately 200 pounds, she weighed in today at 209 pounds. Reports that her breathing is stable. #Acute on chronic heart failure with preserved EF/acute hypoxic respiratory failure Diuresed well in response to Lasix 60 mg IV twice daily Clinically feeling better. Monitor strict intake and output Monitor daily standing weights Creatinine increased to 2.7 on 02/10. Intended to hold the dose of IV Bumex. Discontinued the order at 8:50 AM. However the patient had already gotten his 9 AM dose. She was later given IV fluids on 02/10. Today 02/11 she appears euvolemic. Not short of breath. Creatinine improved. Resume home dose of p.o. Lasix 60 mg. Hold spironolactone.. #CKD stage IV Monitor BMP closely especially with diuresis. Hold spironolactone #Possible UTI Urine growing E. coli Already on antibiotics to treat cellulitis. #Cellulitispatient with worsening pain, redness and tenderness of bilateral lower extremities. Left more so than right. Suspect this is mostly secondary to her worsening bilateral lower extremity edema Improved significantly De-escalate antibiotics Switched from IV doxycycline and ceftriaxone to cefazolin #COPDpatient reports stable respiratory status with no worsening cough, shortness of breath Continue Spiriva Continue Advair Albuterol as needed #atrial fibrillation Continue apixaban 5 mg p.o. twice daily Continue metoprolol 200 mg p.o. daily #Hypertensionblood pressure goal Continue metoprolol 200 mg p.o. daily Continue to monitor Admission and Anticipated Discharge Date Admission Date: February 09, 2025 Subjective Patient says she feels well today. Not short of breath. Legs improving and the redness. Leg swelling has also improved. Review of Systems Review of Systems: All systems reviewed & are unremarkable except as noted in Subjective Physical Exam Physical Exam: General: Awake, conversant Heart: S1, S2/regular rate and rhythm, no murmur rubs or gallops Lungs: Clear to auscultation bilaterally. Normal effort Abdomen: Soft/nontender/nondistended. No hepatosplenomegaly Extremities: No clubbing/cyanosis. 2+ pitting bilateral edema. Cellulitis improving with fading redness bilaterally Behavior: Appropriate, cooperative Results & Data Results & Data Vital Signs (Past 12 Hours) Vital Signs Temp Pulse Pulse Resp BP Pulse Ox O2 Del Method 02/11/25 15:25 36.7 C 89 18 132/71 96 Nasal Cannula 02/11/25 13:34 93 H 02/11/25 11:40 36.5 C 93 H 16 136/85 100 Nasal Cannula 02/11/25 08:15 Nasal Cannula 02/11/25 07:27 36.8 C 78 18 129/74 99 Nasal Cannula 02/11/25 05:52 75 O2 Flow Rate 02/11/25 15:25 3 02/11/25 13:34 02/11/25 11:40 3 02/11/25 08:15 3 02/11/25 07:27 3 02/11/25 05:52 Laboratory Results Abnormal lab results 02/10/25 02/11/25 02/11/25 Range/Units 20:14 07:41 07:57 BUN 47 H (6-23) mg/dl Creatinine 2.42 H D (0.6-1.2) mg/dl Glucose 117 H (70-99(Fasting)) mg/dl POC Glucose 171 H 127 H (70-99) mg/dl 02/11/25 Range/Units 11:59 BUN (6-23) mg/dl Creatinine (0.6-1.2) mg/dl Glucose (70-99(Fasting)) mg/dl POC Glucose 213 H (70-99) mg/dl PG Care Time/CCT Total # of Minutes Spent Total Time Spent with Patient: Total time spent is greater than 50% in coordination of care (as documented) at patient's floor/unit and/or counseling patient: Coding Level of Care Code 12465 SUB INP/OBS CARE 2/35MIN Diagnoses Acute on chronic heart failure with preserved ejection fraction I50.33 Cellulitis L03.90 Chronic obstructive pulmonary disease, unspecified COPD type J44.9 COPD type: unspecified COPD Atrial fibrillation, unspecified type I48.91 Atrial fibrillation type: unspecified Essential hypertension I10 Hypertension type: essential hypertension Chronic kidney disease, stage 3 (moderate) N18.30 Chronic kidney disease stage 3 subtype: unspecified whether 3a or 3b (3) COPD (chronic obstructive pulmonary disease) COPD type: unspecified COPD Qualified Code(s): J44.9 - Chronic obstructive pulmonary disease, unspecified (4) Atrial fibrillation Atrial fibrillation type: unspecified Qualified Code(s): I48.91 - Unspecified atrial fibrillation (5) Hypertension Hypertension type: essential hypertension Qualified Code(s): I10 - Essential (primary) hypertension (6) Chronic kidney disease, stage 3 (moderate) Chronic kidney disease stage 3 subtype: unspecified whether 3a or 3b Qualified Code(s): N18.30 - Chronic kidney disease, stage 3 unspecified
[2025-02-12 06:38] LABS: BUN Creatinine Ratio 17.2 (10-20); Creatinine Clr Calc Pharmacy 17.6 ml/min
--- NOTE | 2025-02-12 08:40 | XRay Report ---
XR chest 1V portable CLINICAL HISTORY: CHF COMPARISON STUDY: 02/08/2025 FINDINGS: There is stable cardiomegaly with mild pulmonary vascular congestion. There are mitral valv ular calcifications. There are stable diffuse pulmonary interstitial opacities. Stable mild blunting of the costophrenic angles. No pneumothorax. IMPRESSION: Stable CHF with likely pulmonary edema and trace pleural effusions. ACT 112: Negative or not required by law. Electronically signed by: Amrik Mallory M.D. 02/12/2025 8:39 AM
[2025-02-12 11:16] LABS: Appearance Urine Clear (Clear); Bacteria Urine Automated None Seen (None Seen); Bilirubin Urine Negative (Negative); Blood Urine 3+ (Negative); Cast Urine Automated 0-2 /lpf (0-2); Color Urine Yellow; Epithelial Cell Urine Auto 0-2 /hpf (0-2); Glucose Urine UA Negative (Negative); Ketones Urine Negative (Negative); Leukocyte Esterase Urine 2+ (Negative); Nitrite Urine Negative (Negative); Protein Urine 1+ (Negative); RBC Urine Automated >20 /hpf (0-2); Specific Gravity Urine 1.013 (1.000-1.030); Urobilinogen Urine Negative (Negative); WBC Urine Automated >50 /hpf (0-5); pH Urine 5.5 (4.5-7.5)
--- NOTE | 2025-02-12 12:59 | Hospitalist Progress Note ---
Date of Service February 12, 2025 Assessment & Plan (1) Acute on chronic heart failure with preserved ejection fraction: Plan: Much improved with Lasix diuresis. Chest x-ray done today, February 12, looks better. (2) Cellulitis: Plan: Of bilateral lower extremities has improved. I suspect there is an element of stasis dermatitis. She remains on intravenous Ancef, day 3 (3) Chronic kidney disease, stage 3 (moderate): Plan: Acute on chronic kidney disease stage III. Creatinine has bumped up to 2.7 with diuresis. Monitor intake and output. Serial labs. Will follow (4) UTI (urinary tract infection): Plan: E. coli isolated. Currently on intravenous Ancef, day 3 (5) COPD (chronic obstructive pulmonary disease): Plan: Stable. Continue current medical management (6) Atrial fibrillation: Plan: Chronic. Continue Eliquis. Continue rate control measures. Telemetry (7) Hypertension: Plan: Stable. Continue current medical management Plan Hopeful discharge to home on Lasix and oral antibiotic tomorrow, February 13 Admission and Anticipated Discharge Date Admission Date: February 09, 2025 Subjective Alert and oriented. No distress. Urine analysis was repeated at the patient's request and there is no bacteria seen. Repeat chest x-ray done today, February 12, looks better with resolution of congestive heart failure. Creatinine has bumped to 2.7 with diuresis. Cardiac echo done and November 2023 reveals mild LVH with normal ejection fraction. Venous Dopplers of both legs negative for DVT. She is at her baseline oxygen usage. Hopefully she can go home tomorrow, February 13 Review of Systems 2 Review of Systems: Constitutionalno fever or chills ENTno blurred vision, no double vision, no epistaxis, no sore throat Respiratoryno cough, no wheezing, no shortness of breath Cardiacno palpitations, no chest pain, no syncope Kwame nausea, vomiting, diarrhea, melena, hematochezia GUno urinary retention, no urinary incontinence, no dysuria, no hematuria Musculoskeletalno joint pain, no muscle tenderness Skinno bruising, no rashes, no pruritus Neurono isolated weakness, no paresthesia, no weakness Psychno depression, no anxiety Physical Exam 2 Physical Exam: General-alert and oriented x3, no fever, no chills HEENT-head atraumatic and normocephalic, pupils equal and reactive to light, extraocular muscles intact Neck-no lymphadenopathy or thyromegaly, trachea midline Chest-clear to auscultation. No rales, wheezing or rhonchi Cardiac-irregular rhythm. Controlled rate. Normal S1 and S2 Abdomen-normal bowel sounds, no hepatosplenomegaly Extremities-no cyanosis, clubbing, or edema Neuro-cranial nerves II through XII intact, motor and sensory function within normal limits, strength symmetrical, no focal deficits Psych-normal affect, normal mood Results & Data Results & Data Vital Signs (Past 12 Hours) Vital Signs Temp Pulse Pulse Pulse Resp BP Pulse Ox 02/12/25 12:27 36.6 C 95 H 15 126/61 02/12/25 10:28 02/12/25 08:39 36.6 C 84 17 146/80 H 98 02/12/25 05:31 83 02/12/25 03:45 36.6 C 78 20 115/66 98 O2 Del Method O2 Flow Rate 02/12/25 12:27 Nasal Cannula 3 02/12/25 10:28 Nasal Cannula 3 02/12/25 08:39 Nasal Cannula 3 02/12/25 05:31 02/12/25 03:45 Nasal Cannula 3 Laboratory Results 02/10/25 07:30 02/12/25 05:00 PG Care Time/CCT Total # of Minutes Spent Total Time Spent with Patient: Total time spent is greater than 50% in coordination of care (as documented) at patient's floor/unit and/or counseling patient: Coding Level of Care Code 62542 SUB INP/OBS CARE 3/50MIN Diagnoses Acute on chronic heart failure with preserved ejection fraction I50.33 Cellulitis L03.90 Chronic kidney disease, stage 3 (moderate) N18.30 Chronic kidney disease stage 3 subtype: unspecified whether 3a or 3b UTI (urinary tract infection) N30.00 Hematuria presence: without hematuria Urinary tract infection type: acute cystitis Chronic obstructive pulmonary disease, unspecified COPD type J44.9 COPD type: unspecified COPD Atrial fibrillation, unspecified type I48.91 Atrial fibrillation type: unspecified Essential hypertension I10 Hypertension type: essential hypertension (3) Chronic kidney disease, stage 3 (moderate) Chronic kidney disease stage 3 subtype: unspecified whether 3a or 3b Qualified Code(s): N18.30 - Chronic kidney disease, stage 3 unspecified (4) UTI (urinary tract infection) Hematuria presence: without hematuria Urinary tract infection type: acute cystitis Qualified Code(s): N30.00 - Acute cystitis without hematuria (5) COPD (chronic obstructive pulmonary disease) COPD type: unspecified COPD Qualified Code(s): J44.9 - Chronic obstructive pulmonary disease, unspecified (6) Atrial fibrillation Atrial fibrillation type: unspecified Qualified Code(s): I48.91 - Unspecified atrial fibrillation (7) Hypertension Hypertension type: essential hypertension Qualified Code(s): I10 - Essential (primary) hypertension
[2025-02-13 07:16] LABS: BUN Creatinine Ratio 17.2 (10-20); Creatinine Clr Calc Pharmacy 19.7 ml/min; Potassium 3.5 mmol/L (3.5-5.1)
[2025-02-13 11:55] VITALS: RESP 20
[2025-02-13 16:19] VITALS: BP 123/83; PULSE 85; TEMP 97.7; O2SAT 100
--- NOTE | 2025-02-13 17:13 | Discharge Summary ---
Discharge Summary Date of Service February 13, 2025 Principal Dx & Hospital Course #1 = Principal Diagnosis (1) Acute on chronic heart failure with preserved ejection fraction: Resolved with Lasix diuresis. Chest x-ray done on February 12 looked better. (2) Cellulitis: Of bilateral lower extremities has improved. I suspect there is an element of stasis dermatitis. Treated while hospitalized with intravenous Ancef, day 4 . She will be discharged on oral Cipro which will also treat her UTI (3) Chronic kidney disease, stage 3 (moderate): Acute on chronic kidney disease stage III. Creatinine bumped up to 2.7 with diuresis but has now improved to 2.4. Monitor intake and output. Serial labs while hospitalized (4) UTI (urinary tract infection): E. coli isolated. Treated while hospitalized with intravenous Ancef. She will be discharged on oral Cipro (5) COPD (chronic obstructive pulmonary disease): Stable. Continue current medical management (6) Atrial fibrillation: Chronic. Continue Eliquis. Continue rate control measures. Telemetry (7) Hypertension: Stable. Continue current medical management Plan Home today, February 13 , on Lasix 80 mg daily and Cipro 500 mg twice a day Admission HPI Per Admitting Provider Mara Kumar Is a very pleasant 79-year-old female with history of diabetes, heart failure with preserved EF, atrial fibrillation, hypertension, COPD and CKD with baseline creatinine of approximately 2 presenting with several weeks of worsening bilateral lower extremity edema. Patient reports that her legs started swelling before Easter and have been progressively worsening. This week they began to ooze clear fluid. They also became more red and tender to the touch. Patient weighs 209 pounds today. Dry weight reported to be approximately 200 pounds. She has ongoing orthopnea as well as stable shortness of breath. Otherwise, denies chest pain, palpitations, dizziness, syncope, nausea, vomiting, abdominal pain. Denies fever, chills. She is reporting some increased urinary frequency and urgency as well ongoing for the last several days In the ER she is afebrile, hemodynamically stable, stable respiratory status on her baseline 3 L of oxygen ER course: Ceftriaxone Daptomycin Discharge Exam General-alert and oriented x3, no fever, no chills HEENT-head atraumatic and normocephalic, pupils equal and reactive to light, extraocular muscles intact Neck-no lymphadenopathy or thyromegaly, trachea midline Chest-clear to auscultation. No rales, wheezing or rhonchi Cardiac-irregular rhythm. Controlled rate. Normal S1 and S2 Abdomen-normal bowel sounds, no hepatosplenomegaly Extremities-no cyanosis, clubbing, or edema Neuro-cranial nerves II through XII intact, motor and sensory function within normal limits, strength symmetrical, no focal deficits Psych-normal affect, normal mood Discharge Plan Discharge Items Patient Disposition: Home - Home Health Services Reason For Visit: LE EDEMA, CELLULITIS, CKD Discharge Diagnosis: Acute on chronic diastolic CHF, E. coli UTI, bilateral lower extremity cellulitis, acute on chronic kidney disease stage III Condition on Discharge: Good Activity: Resume your previous activity Non-emergency contact: Primary Care Provider Call non-emergency contact if: you have any medication questions and your symptoms worsen Follow-up/Referrals: Jayne Mayo DO [Primary Care Provider] - 02/20/25 8:20 am Diet: Regular and Heart Healthy Addtl Attending Provider Instructions: Take Cipro antibiotic for 1 more week. Lasix (furosemide) has been increased to 80 mg once a day taken early in the afternoon. Pending Studies at Discharge: No Stand-Alone Forms: [facility] Exhale Fans, Smoking Cessation Medications and DC Order Prescriptions: New furosemide [Lasix] 80 mg tablet 80 mg PO DAILY Qty: 30 0RF ciprofloxacin HCl [Cipro] 500 mg tablet 500 mg PO BID Qty: 14 0RF Continued (DME) ProdBotanical Tans No Coding Strip See Dose Instructions .ROUTE .MEDSUPPLY Qty: 400 3RF Dose Instruction: As directed Rx Instructions: Test 4 times daily (DME) blood-glucose meter [[employer] Autocode Meter] Kit See Rx Instructions .Route Qty: 1 0RF Rx Instructions: used to test blood sugar as directed metoprolol succinate 200 mg tablet extended release 24 hr 200 mg PO DAILY Qty: 90 3RF Humulin N NPH Insulin KwikPen 100 unit/mL (3 mL) insulin pen 30 unit SUBCUT DAILY Qty: 30 2RF Spiriva Respimat 2.5 mcg/actuation mist 2 inh inhalation QAM Qty: 12 2RF fluticasone propion-salmeterol [Advair Diskus] 250-50 mcg/dose blister with device 1 inh inhalation Q12H Qty: 180 2RF Eliquis 5 mg tablet 5 mg PO BID 90 Days Qty: 180 3RF spironolactone 25 mg tablet 12.5 mg PO DAILY Qty: 90 0RF Ozempic 1 mg/dose (4 mg/3 mL) pen injector 1 mg subcut Q7D Qty: 9 3RF Rx Instructions: Take on Wednesdays albuterol sulfate 90 mcg/actuation HFA aerosol inhaler 2 puff inhalation Q6H PRN (Reason: Shortness Of Breath Or Wheezing) Qty: 18 3RF ascorbic acid (vitamin C) 1,000 mg tablet 1,000 mg PO BID (DME) lancets [Prodigy Lancets] 28 gauge misc See Dose Instructions .ROUTE .MEDSUPPLY Qty: 25 Rx Instructions: Test 4 times daily (DME) Portable Oxygen Misc See Rx Instructions .ROUTE .MEDSUPPLY Rx Instructions: As directed. 1L NC w/ activity. Dx: J96.11 cyanocobalamin (vitamin B-12) 1,000 mcg tablet, sublingual 1,000 mcg sublingual DAILY vitamin B complex Tablet 1 tab PO QAM fish,bora,flax oils-om3,6,[id number] [[place] 3-6-9 Complex] 400-400-400 mg Capsule 0 cap PO UNKNOWN Discontinued furosemide 40 mg tablet 60 mg PO DAILY Rx Instructions: 60 mg daily; Discharge Orders: Discharge Order- CHF (Routine); Ordered 02/13/25 Ordered By: Kasi Harkins Admission Data Admit Date/Time: 02/09/25 03:16 Attending Provider: Kasi Harkins Admit Provider: Alysha Jackman Primary Care Provider: Jayne Mayo Other Providers: Alysha Jackman Other Interventions: Discharge Summary Assessment (RN) Last Done: 02/13/25 15:00 Hospital Stay Data Consultations 02/09/25 02:40 ED Decision to Admit Stat Diagnostic Imagining Performed 02/08/25 23:04 US venous doppler LE BI Stat Pending Results Patient Have Any Pending Studies at Discharge: No Discharge Instructions Given to Patient (Per Discharging Provider) Take Cipro antibiotic for 1 more week. Lasix (furosemide) has been increased to 80 mg once a day taken early in the afternoon. Total Time Total Time Spent Total Time Spent (In Minutes): 45 minutes Coding Level of Care Code 42528 INP/OBS DISCH >30 MIN Diagnoses Acute on chronic heart failure with preserved ejection fraction I50.33 Cellulitis L03.90 Chronic kidney disease, stage 3 (moderate) N18.30 Chronic kidney disease stage 3 subtype: unspecified whether 3a or 3b UTI (urinary tract infection) N30.00 Hematuria presence: without hematuria Urinary tract infection type: acute cystitis Chronic obstructive pulmonary disease, unspecified COPD type J44.9 COPD type: unspecified COPD Atrial fibrillation, unspecified type I48.91 Atrial fibrillation type: unspecified Essential hypertension I10 Hypertension type: essential hypertension
== END 2025-02-13 17:23 | disposition home health service (06) | DRG 291 ==
LOC: SUATTDRO → ED 20:35 → SUATTDRO 02-09 03:16 → EDINP 02-09 03:16 → 2N 02-09 05:04